=== PATIENT | male | born 1960 | race Caucasian/White ===

== ENCOUNTER 2016-12-03 07:28 | Day surgery (SDC) | payer MEDICARE ==
[2016-11-28 15:06] VITALS: BMI 50.1
[2016-12-03] MEDS ORDERED: SODIUM CHLORIDE 0.9% 1,000 ML IV SCH (07:41)
[2016-12-03 07:51] VITALS: TEMP 98
[2016-12-03] MEDS ORDERED: LIDOCAINE 1% INJ 10MG/ML (20 ML MDV) ONE (08:26)
[2016-12-03] MEDS ORDERED: PROPOFOL 10 MG/ML 20 ML VIAL IV ONE (08:26)
[2016-12-03 08:31] LABS: Anion Gap 10 mmol/L; Blood Urea Nitrogen 15 mg/dL (9-20); Calcium 8.8 mg/dL (8.4-10.2); Carbon Dioxide 24 mmol/L (22-30); Chloride 107 mmol/L (98-107); Glucose 114 mg/dL (74-99); Non-African American GFR(MDRD) >60 (>60 ml/min/1.73 sqM); Sodium 141 mmol/L (137-145)
[2016-12-03] MEDS ORDERED: BENZOCAINE SPRAY 100 APPLIC/CAN MUCOUS MEM ONE ×2 (08:32→08:35)
[2016-12-03 09:03] VITALS: RESP 16
--- NOTE | 2016-12-03 09:13 | CE ---
DATE OF SERVICE: 12/03/2016 PERFORMING PHYSICIAN: Delano Marte, Street Worker. INDICATION: Atrial fibrillation. SEDATION: Deep sedation was performed using propofol with MEAT COUNTER CLERK in the room. PROCEDURE DESCRIPTION: After transesophageal echocardiogram was performed and left atrial appendage thrombus was ruled out, we proceeded to do the cardioversion. The patient converted from atrial fibrillation into normal sinus rhythm using 200 joules at first attempt. CONCLUSION: Successful cardioversion of atrial fibrillation into normal sinus mechanism using 100 joules at first attempt.
--- NOTE | 2016-12-03 09:21 | ECHOT ---
DATE OF SERVICE: 12/03/2016 PERFORMING PHYSICIAN: Delano Marte, Indigo Mixer. PROCEDURE PERFORMED: Transesophageal echocardiogram. INDICATION: This is a pleasant 56-year-old gentleman who was diagnosed with A. fib with uncontrolled heart rate. The transesophageal echocardiogram to rule out any left atrial appendage thrombus. SEDATION: Deep sedation was performed using propofol with a FLOOR POLISHER in the room. PROCEDURE DESCRIPTION: After obtaining informed consent, the patient was brought to the transesophageal echocardiogram suite. He was turned into left lateral position. A bite guard was placed. Lidocaine spray was performed as well. Subsequently, deep sedation was performed using propofol with a FLOOR POLISHER in the room. Subsequently, I advanced the esophageal echocardiogram probe to the midesophagus, where a 2-D echocardiogram images as well as color Doppler images of various cardiac structures were obtained. Particular attention was paid to the left atrial appendage. After that, the probe was advanced to the stomach to obtain transgastric views. Then it was withdrawn back to the esophagus. I did also contrast study with bubble to evaluate the interatrial septum. The procedure was completed without any complication. FINDINGS: The left ventricle appeared to be dilated. The left ventricular systolic function is severely impaired with an ejection fraction of 20% to 25% with global hypokinesia. The right ventricle seems to be dilated as well as the left atrium appeared to be dilated as well as the right atrium. The left atrial appendage appeared to be free from any thrombus with the interatrial septum appeared to be intact without any evidence of shunt. The aortic valve is a trileaflet valve without stenosis or regurgitation. The mitral valve seems to be of normal leaflets with evidence of moderate MR likely secondary to dilated annulus. There is moderate tricuspid regurgitation seen. Normal pulmonic valve. CONCLUSION: 1. Normal left atrial appendage without any evidence of thrombus. 2. Intact intra-atrial septum without any evidence of shunt. 3. Severe biatrial enlargement. 4. Dilated left ventricle with severely impaired function and ejection fraction of 20% to 25% and global hypokinesia. 5. Dilated right ventricle with impaired function as well. 6. Trileaflet aortic valve without stenosis or insufficiency. 7. Normal mitral valve leaflets with evidence of moderate mitral regurgitation. 8. Moderate tricuspid regurgitation. 9. Normal aortic root dimension. 10. No evidence of pericardial effusion.
[2016-12-03 10:41] VITALS: BP 126/88; PULSE 66
== END 2016-12-03 10:30 | disposition home or self-care (01) ==
LOC: CATHCVL 07:28
PROVIDERS: ATTEND Internal Medicine Interventional Cardiology
DX: I08.1 Rheumatic disorders of both mitral and tricuspid valves (principal); I48.0 Paroxysmal atrial fibrillation; Z79.01 Long term (current) use of anticoagulants; I42.9 Cardiomyopathy, unspecified; I51.9 Heart disease, unspecified; I10 Essential (primary) hypertension; E66.9 Obesity, unspecified; Z68.43 Body mass index [BMI] 50.0-59.9, adult; E78.5 Hyperlipidemia, unspecified; Z79.82 Long term (current) use of aspirin; Z79.899 Other long term (current) drug therapy; Z91.09 Other allergy status, other than to drugs and biological substances
CPT/HCPCS: 93312; 93320; 93005; 93325; 92960; 80048; J2001; J2704; 99152; 99153

== ENCOUNTER 2016-12-21 09:02 | Day surgery (SDC) | payer MEDICARE ==
[2016-12-19 15:01] VITALS: BMI 50.1
[2016-12-21] MEDS ORDERED: NITROGLYCERIN SL TABS 0.4 MG TAB SUBLINGUAL PRN (09:25)
[2016-12-21] MEDS ORDERED: ASPIRIN 325 MG TAB PO STA (09:25)
[2016-12-21] MEDS ORDERED: ATORVASTATIN 80 MG TAB PO STA (09:25)
[2016-12-21] MEDS ORDERED: ALPRAZolam 0.5 MG TAB PO PRN (09:25)
[2016-12-21] MEDS ORDERED: SODIUM CHLORIDE 0.9% 1,000 ML in EMPTY BAG 1 BAG IV ONE (09:25)
[2016-12-21] MEDS ORDERED: ALPRAZolam 0.25 MG TAB PO PRN (09:25)
[2016-12-21] MEDS ORDERED: MIDAZOLAM 2 MG/2 ML VIAL ONE (09:31)
[2016-12-21] MEDS ORDERED: diphenhydrAMINE 50 MG/ML 1 ML VIAL ONE (09:31)
[2016-12-21] MEDS ORDERED: HEPARIN SODIUM 1,000 UNIT/ML VIAL ONE (09:39)
[2016-12-21 09:47] LABS: Basophils % (A) 1 %; CH 26.3; CHCM 32.5; Eosinophils # (A) 0.2 k/uL (0-0.7); Eosinophils % (A) 4 %; HCT 40.6 % (39.0-53.0); HDW 2.81; HGB 13.4 gm/dL (13.0-17.5); Luc # (Auto) 0.14; Luc % (Auto) 3; Lymphocytes # (A) 0.9 k/uL (1.0-4.8); Lymphocytes % (A) 21 %; MCH 26.8 pg (25.0-35.0); MCV 81.1 fL (80.0-100.0); Monocytes # (A) 0.3 k/uL (0-1.0); Monocytes % (A) 6 %; Neutrophils # (A) 2.8 k/uL (1.3-7.7); Neutrophils % (A) 66 %; RBC 5.01 m/uL (4.30-5.90); RDW 15.2 % (11.5-15.5); WBC 4.3 k/uL (3.8-10.6); WBC (Perox) 4.35
[2016-12-21] MEDS ORDERED: ASPIRIN 81 MG CHEW PO ONE (09:49)
[2016-12-21] MEDS ORDERED: VERAPAMIL 2.5 MG/ML 2 ML AMP ONE (09:52)
[2016-12-21] MEDS ORDERED: LIDOCAINE 2% INJ 20 MG/ML (20 ML MDV) ONE (09:52)
[2016-12-21] MEDS ORDERED: SODIUM CHLORIDE 0.9% (PF) 10 ML VIAL ONE (09:52)
[2016-12-21 09:56] VITALS: RESP 20; TEMP 98.2
[2016-12-21] MEDS ORDERED: MIDAZOLAM 2 MG/2 ML VIAL IVP ONE (10:05)
[2016-12-21] MEDS ORDERED: diphenhydrAMINE 50 MG/ML 1 ML VIAL IVP ONE (10:05)
[2016-12-21] MEDS ORDERED: LIDOCAINE 2% INJ 20 MG/ML SQ ONE (10:09)
[2016-12-21] MEDS: VERAPAMIL SYRINGE (5 MG/10 ML) INTRAARTER ONE ×2 (10:10→10:26)
[2016-12-21] MEDS ORDERED: HEPARIN SODIUM 1,000 UNIT/ML VIAL IV ONE (10:12)
[2016-12-21] MEDS ORDERED: IOHEXOL 300 MG/ML 100 ML BOTTLE IV ONE (10:27)
[2016-12-21] MEDS ORDERED: RX INFO: IV CONTRAST WAS GIVEN 1 EACH MISC MISCELLANE PRN (10:29)
[2016-12-21] MEDS ORDERED: SODIUM CHLORIDE 0.9% 1,000 ML IV ONE (10:30)
[2016-12-21] MEDS ORDERED: SODIUM CHLORIDE 0.9% 1,000 ML IV SCH (10:30)
[2016-12-21 13:57] VITALS: PULSE 62
[2016-12-21 15:29] VITALS: BP 142/70
--- NOTE | 2016-12-21 20:13 | LTR ---
December 21, 2016 RE: Yoana Geovani Lita Dear Dr. Mittal Mass: Mr. Geovani Lees underwent a heart catheterization today which showed normal coronary angiogram. I want to thank you for allowing me to participate in his care and please do not hesitate if you have any questions or concerns. Sincerely, STEPHEN MCDONALD MD
--- NOTE | 2016-12-21 20:21 | CC ---
DATE OF SERVICE: 12/21/2016 PERFORMING PHYSICIAN: Jung Christopher MD, field aide. PROCEDURE PERFORMED: Selective right and left coronary angiogram. INDICATION: This is a pleasant 56-year-old gentleman who is known to have paroxysmal atrial fibrillation, hypertension, dyslipidemia, who was diagnosed with severe cardiomyopathy and ejection fraction between 20 to 25%. He was brought today to undergo a heart catheterization and rule out any severe underlying coronary artery disease as an etiology. APPROACH: Right radial artery. COMPLICATIONS: None. LEVEL OF SEDATION: Moderate. PROCEDURE DESCRIPTION: After obtaining an informed consent, the patient was brought to the cardiac electrical laboratory technician. Right radial artery was cannulated using micropuncture technique. The micropuncture wire passed easily, then I placed 6 Irish sheath in the right radial artery. Subsequently, I did give the patient 2 mg of verapamil IA and 5000 units of heparin IV. Subsequently, I did selective right and left coronary angiogram using JR4 and JL 3.5 catheters. The procedure was completed without any complication. SELECTIVE CORONARY ANGIOGRAM: 1. The right coronary artery is a large-caliber vessel, it is a dominant vessel. The RCA is angiographically normal. In the midportion gives rise into a small acute marginal branch and distally bifurcates into PDA and PLV branches; both are angiographically normal. 2. The left main is angiographically normal and bifurcates into the left circumflex and left anterior descending artery. 3. The left circumflex is a large-caliber vessel and it is a nondominant vessel. The proximal left circumflex is angiographically normally. The mid left circumflex is normal. The left circumflex distally is normal and bifurcates into 2 separate branches, seems to be angiographically normal. 4. Left anterior descending artery: The proximal LAD is angiographically normal and gives rises into the first diagonal branch, which is a large-caliber vessel, seems to be angiographically normally. The mid LAD is normal and the LAD distally is normal. CONCLUSION: 1. Normal coronary angiogram. 2. Dominant right coronary system. 3. Tortuous right subclavian artery. POSTPROCEDURE MANAGEMENT: 1. Maximize medical treatment. 2. Follow up with the patient.
== END 2016-12-21 15:25 | disposition home or self-care (01) ==
LOC: CATHCVL 09:02
PROVIDERS: ATTEND Internal Medicine Interventional Cardiology
DX: I48.0 Paroxysmal atrial fibrillation (principal); Z79.01 Long term (current) use of anticoagulants; I77.1 Stricture of artery; I42.9 Cardiomyopathy, unspecified; I10 Essential (primary) hypertension; E78.5 Hyperlipidemia, unspecified; E78.00 Pure hypercholesterolemia, unspecified; E66.3 Overweight; Z68.43 Body mass index [BMI] 50.0-59.9, adult; Z79.899 Other long term (current) drug therapy; Z91.09 Other allergy status, other than to drugs and biological substances; G47.33 Obstructive sleep apnea (adult) (pediatric)
CPT/HCPCS: 93454; 85025; 99152; 99153; C1769; C1894; J2001; J2250; J1200; J1644; Q9967

== ENCOUNTER → 2017-06-11 | Outpatient (CLI) | payer MEDICARE ==
[2017-06-11 08:38] LABS: CH 27.9; HCT 41.9 % (39.0-53.0); HDW 2.58; HGB 12.8 gm/dL (13.0-17.5); MCH 26.7 pg (25.0-35.0); MCHC 30.5 g/dL (31.0-37.0); MCV 87.5 fL (80.0-100.0); Mean Platelet Volume 6.7; RBC 4.79 m/uL (4.30-5.90); RDW 14.6 % (11.5-15.5); WBC 6.4 k/uL (3.8-10.6)
[2017-06-11 08:46] LABS: INR 0.9 (<1.2); Partial Thromboplastin Time 24.3 sec (22.0-30.0); Prothrombin Time 9.6 sec (9.0-12.0)
[2017-06-11 08:49] LABS: ALT 38 U/L (21-72); AST 26 U/L (17-59); Alkaline Phosphatase 110 U/L (38-126); Anion Gap 12 mmol/L; Blood Urea Nitrogen 15 mg/dL (9-20); Calcium 9.1 mg/dL (8.4-10.2); Carbon Dioxide 27 mmol/L (22-30); Chloride 104 mmol/L (98-107); Glucose 103 mg/dL (74-99); Non-African American GFR(MDRD) >60 (>60 ml/min/1.73 sqM); Potassium 4.5 mmol/L (3.5-5.1); Sodium 143 mmol/L (137-145); Total Bilirubin 0.4 mg/dL (0.2-1.3); Total Protein 6.9 g/dL (6.3-8.2)
[2017-06-11 11:11] LABS: Appearance,Urine Clear (Clear); Bilirubin,Urine Negative (Negative); Glucose,Urine (UA) Negative (Negative); Ketones,Urine Negative (Negative); Leukocyte Esterase,Urine Negative (Negative); Nitrite,Urine Negative (Negative); Protein,Urine Negative (Negative); Specific Gravity,Urine 1.013 (1.001-1.035); UA Billing (MACRO vs. MICRO) CHEM; Urobilinogen,Urine <2.0 mg/dL (<2.0)
== END | disposition home or self-care (01) ==
LOC: LABWHC1 07:55
PROVIDERS: ATTEND Orthopaedic Surgery
DX: Z01.812 Encounter for preprocedural laboratory examination (principal)
CPT/HCPCS: 80053; 81003; 85027; 85610; 85730; 87070

== ENCOUNTER 2017-07-09 07:43 | Inpatient (IN) | payer MEDICARE ==
[2017-07-03 15:32] VITALS: BMI 43.5
[~2017-07-09 07:43] MED LIST: ACETAMINOPHEN TAB 500 MG TAB PO ONE; DEXAMETHASONE SOD PHOSPHATE 10 MG/ML 1 ML VIAL IV ONE; HYDROmorphone 1 MG/ML 1 ML SYRINGE IVP PRN; LIDOCAINE 1% 20 ML VIAL (10MG/ML) FOR IV START INTRADERMA PRN; MELOXICAM 7.5 MG TAB PO ONE; MIDAZOLAM 2 MG/2 ML VIAL IV PRN; ONDANSETRON 4 MG/2 ML VIAL IVP ONE; SCOPOLAMINE 1.5MG/72HR PATCH TRANSDERM ONE; TRANEXAMIC ACID 1,000 MG in SODIUM CHLORIDE 0.9% 100 ML IVPB ONE; ceFAZolin 3 GM in SODIUM CHLORIDE 0.9% 100 ML IVPB ONE
[2017-07-09] MEDS: LACTATED RINGERS 1,000 ML IV SCH (08:16)
[2017-07-09] MEDS ORDERED: SODIUM CHLORIDE 0.9% 100 ML BAG ONE (09:27)
[2017-07-09] MEDS ORDERED: TRANEXAMIC ACID 1,000 MG/10 ML VIAL ONE (09:27)
[2017-07-09] MEDS ORDERED: MIDAZOLAM 2 MG/2 ML VIAL ONE (09:27)
[2017-07-09] MEDS ORDERED: fentaNYL (PF) 50 MCG/ML 2 ML AMP ONE (09:27)
[2017-07-09] MEDS ORDERED: NA PHOS,M-B/NA PHOS,DI-BA 133 ML ENEMA RECTAL PRN (09:39)
[2017-07-09] MEDS ORDERED: HYDROmorphone 1 MG/ML 1 ML SYRINGE IVP PRN ×2 (09:39)
[2017-07-09] MEDS ORDERED: hydrOXYzine PAMOATE 25 MG CAP PO PRN (09:39)
[2017-07-09] MEDS ORDERED: MAGNESIUM HYDROXIDE 2,400 MG/10 ML CUP PO PRN (09:39)
[2017-07-09] MEDS ORDERED: ONDANSETRON 4 MG/2 ML VIAL IVP PRN (09:39)
[2017-07-09] MEDS ORDERED: HYDROcodone/APAP 5-325MG 1 EACH TAB PO PRN ×2 (09:39)
[2017-07-09] MEDS ORDERED: DIAZEPAM 5 MG TAB PO PRN (09:39)
[2017-07-09] MEDS ORDERED: NALOXONE 0.4 MG/ML 1 ML VIAL IV PRN (09:39)
[2017-07-09] MEDS ORDERED: BISACODYL 10 MG SUPP RECTAL PRN (09:39)
[2017-07-09] MEDS: ROPIVACAINE 246.25 MG, EPINEPHrine 0.5 MG, KETOROLAC 30 MG, cloNIDine HCL/PF 80 MCG, WA... MISCELLANE ONE ×15 (10:12→11:13)
[2017-07-09] MEDS ORDERED: ceFAZolin 3,000 MG in SODIUM CHLORIDE 0.9% IRRIGATIO 3,000 ML IRRIGATION ONE (10:14)
--- NOTE | 2017-07-09 11:18 | P.OP ---
Date of Procedure: 07/09/17 Preoperative Diagnosis: Severe osteoarthritis of the right knee Postoperative Diagnosis: Severe osteoarthritis of the right knee Procedure(s) Performed: Right total knee arthroplasty Implants: S[employer]hew Oxinium femoral component size 7, right S[employer]hew Citlali II right nonporous tibial baseplate size 7 [employer]hew size 11 mm Legion XLPE dished articular insert, size 7-8 [employer] Citlali II resurfacing patellar component, 35 mm All components were cemented using Eli antibiotic bone cement with Tobramycin x2 The articulation is ceramic on polyethylene. Anesthesia: spinal Surgeon: Mj Logan Embedded Firmware Developer #1: Nancy Phipps Estimated Blood Loss (ml): 300 Pathology: other (Bone and cartilage) Condition: stable Disposition: PACU Indications for Procedure: After failure of conservative treatment we discussed the surgical and nonsurgical treatment options at length. Patient wishes to proceed with a total knee arthroplasty. Complications specific to this procedure were discussed at length, including but not limited to infection, bleeding, stiffness , and nerve injury. Patient is aware of all these complications and informed consent was obtained Operative Findings: The operative findings are consistent with severe osteoarthritis of the right knee Description of Procedure: Patient was seen in the preoperative area consent was reviewed and operative site was marked with a skin marker. Patient was then brought to the operating room and given preoperative antibiotics intravenously. A spinal anesthetic was administered by the anesthesia department. A tourniquet was placed on the upper thigh and the lower extremity was prepped and draped in usual sterile fashion. A gram of transexamic acid was given. A universal timeout was then performed which confirmed the patient's name, surgical site, ALLERGIES, and consent. The lower extremity was then exsanguinated and tourniquet was inflated to 350 mmHg. A standard and anterior midline approach to the knee was performed. The skin and subcutaneous tissue was dissected down to the patellar tendon. A medial parapatellar arthrotomy was then performed. The knee was then extended, the patellar was everted, and the knee was again flexed. Anterior horns of both menisci were excised, and a release was performed to the posterior medial aspect of the knee. On gross visual inspection, there was complete loss of articular cartilage in the medial and patellofemoral joint spaces. There was also significant cartilage damage in the lateral compartment. There were multiple periarticular osteophytes which were then removed with a Ronguer. The femoral canal was then opened with the appropriate drill, and the intramedullary femoral cutting guide was then placed and set for 4 of valgus. The distal femoral cutting block was then pinned in place, and the distal femur was then cut. The cutting block was then removed and the cut was checked for flatness. Next, the sizing guide was then placed and set for 3 external rotation based off of the epicondylar axis and Whitesides line. After the femur was sized, the appropriate 4-in-1 cutting block was then pinned in place. The anterior condyles were cut without notching. The posterior and chamfer cuts were performed while protecting the collateral ligaments. The cutting block was then removed, and the femoral canal was plugged with autologous bone. Attention was then directed to the tibia. The remaining ACL was removed with a Ronguer, and the tibia was then gently subluxed forward with a large bent knee retractor. Any remaining menisci was excised. The posterior lateral corner was cauterized in order to cauterize the lateral geniculate artery. The extra medullary tibial cutting guide was then placed, set for the appropriate rotation , slope, and depth of resection. The proximal tibia cutting guide was then pinned in place. Proximal tibia was then cut and sized. Next trials were then placed with the appropriate-sized insert. The knee was able to fully extend and flex to 130 and was stable throughout all range of motion. The knee was then extended, patella everted. Patella was then measured, and then using an osteotomy guide, the patella was cut at the appropriate level. The patella was then measured and drilled and the patella trial was then placed. The knee was then taken through range of motion with the patella trial and the patella tracked normally. The knee was then extended patella trial was then removed and the patella was everted. Knee was then flexed and lug holes were drilled through the femoral trial and the femoral trial was then removed. The tibial was then exposed, and the tibial broach guide was then pinned in place after it was set for the appropriate rotation to allow for the most coverage without overhang. The tibia was then reamed and broached. The cut surfaces of bone were then irrigated with pulsatile lavage. The posterior structures were injected with the ropivacaine solution. The components were then opened, the cement was mixed, and the components were then cemented in place. The cement was allowed to harden with the knee in full extension. While the cement was hardening, the remaining soft tissues were then injected with a ropivacaine solution, which consisted of 246.25 mg of ropivacaine, 0.5 mg of epinephrine, 30 mg of Toradol, 80 g of clonidine, and 48.45 mL of sterile water, for a total of 100 mL of fluid injected. After the cemented hardened. The tourniquet was released, and hemostasis was obtained. A second gram of transexamic acid was given. The knee was again irrigated. The knee was again taken through range of motion and found to be stable throughout all range of motion of 0-130, and the patella tracked normally. The fascia was then closed with #2 strata fix suture. The subcutaneous tissue was closed with 3-0 Vicryl and 3-0 strata fix. Dermabond tape was used for the skin and placed with the knee in flexion. The patient was placed in a sterile dressing. Patient was then transferred to recovery room in stable condition. The service assistant YURI Young was required due the complexity surgery and the need for a skilled surgical assistant certified. She assisted in positioning, draping, retraction, and closure of the wound.
--- NOTE | 2017-07-09 12:02 | XR ---
EXAMINATION TYPE: XR knee limited RT DATE OF EXAM: 07/09/2017 COMPARISON: NONE TECHNIQUE: Two views submitted HISTORY: Post op FINDINGS: There is a prosthetic knee in near anatomic alignment. There is soft tissue edema and emphysema. IMPRESSION: 1. Postoperative change. Appears in near-anatomic alignment
[2017-07-09] MEDS ORDERED: LACTATED RINGERS 1,000 ML IV ONE (12:08)
[2017-07-09] MEDS: ceFAZolin 3 GM in SODIUM CHLORIDE 0.9% 100 ML IVPB SCH (16:27)
[2017-07-09] MEDS: RIVAROXABAN 10 MG TAB PO SCH (16:29)
[2017-07-09] MEDS: SODIUM CHLORIDE 0.9% 1,000 ML IV SCH (16:30)
[2017-07-09] MEDS ORDERED: WARFARIN 5 MG TAB PO ONE (18:00)
[2017-07-09] MEDS ORDERED: NITROGLYCERIN SL TABS 0.4 MG TAB SUBLINGUAL PRN (20:22)
[2017-07-09] MEDS ORDERED: CLOBETASOL PROP 0.05% CR 15GM TOPICAL PRN (20:22)
[2017-07-09] MEDS: SENNOSIDES-DOCUSATE SODIUM 1 EACH TAB PO SCH (20:27)
[2017-07-09] MEDS: METOPROLOL TARTRATE 50 MG TAB PO SCH (21:23)
[2017-07-09] MEDS: FUROSEMIDE 80 MG TAB PO SCH (21:28)
[2017-07-09] MEDS: FLECAINIDE 50 MG TAB PO SCH (21:28)
[2017-07-09] MEDS: FAMOTIDINE 20 MG TAB PO SCH (21:58)
[2017-07-10] MEDS: ceFAZolin 3 GM in SODIUM CHLORIDE 0.9% 100 ML IVPB SCH (00:14)
[2017-07-10] MEDS: SODIUM CHLORIDE 0.9% 1,000 ML IV SCH (00:14)
[2017-07-10] MEDS: HYDROmorphone 1 MG/ML 1 ML SYRINGE IVP PRN ×2 (01:22→17:01)
[2017-07-10] MEDS: LACTATED RINGERS 1,000 ML IV SCH (05:42)
--- NOTE | 2017-07-10 06:25 | CONS ---
CONSULTATION DATE OF CONSULTATION: 07/09/2017 REASON FOR CONSULTATION: Medical management requested by Dr. Logan. CONSULTATION: This is a pleasant 57-year-old patient whose chronic stable medical conditions include atrial fibrillation, on Xarelto, CHF, COPD, hyperlipidemia, hypertension, heart attack in the past, osteoarthritis multiple joints, sleep apnea uses CPAP machine, chronic lymphedema, depression controlled. The patient has undergone a right total knee arthroplasty. Pain is controlled. No nausea, vomiting. No chest pain. Lying in bed. REVIEW OF SYSTEMS: CONSTITUTIONAL: Tired HEENT: None. RESPIRATORY: None. CARDIOVASCULAR: None. GASTROINTESTINAL: None. GENITOURINARY; None. MUSCULOSKELETAL: Pain in different joints. DERMATOLOGICAL: None. HEMATOLOGIC: None. LYMPHATICS: None. PSYCHIATRY: Depression controlled. NEUROLOGICAL: None. PAST HISTORY: Atrial fibrillation, congestive heart failure, COPD, hyperlipidemia, hypertension, [place], osteoarthritis, obstructive sleep apnea, lymphedema, depression. PAST SURGERY HISTORY: Bariatric surgery, cholecystectomy, cardiac cath, joint replacement, lap band, left knee replacement, left elbow surgery, left ankle ORIF. SOCIAL HISTORY: No smoking. No alcohol. . 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 FAMILY HISTORY: Cancer, type unknown. HOME MEDICATIONS: 1. Aldactone 25 mg p.o. daily. 2. Silver sulfadiazine cream topical b.i.d. p.r.n. 3. Xarelto 20 mg with supper. 4. Zantac 150 mg p.o. b.i.d. 5. Pravachol 20 mg a day. 6. Klor-Con 20 mEq a day. 7. Nitrostat 0.4 sublingual q.5 p.r.n. 8. Multivitamin 1 tab p.o. daily. 9. Lopressor 50 mg p.o. b.i.d. 10.Meclizine 25 mg p.o. q.i.d. p.r.n. 11.Claritin 10 mg p.o. daily. 12.Lisinopril 40 mg p.o. daily. 13.Motrin 600 mg p.o. q.8 p.r.n. 14.Lasix 80 mg p.o. b.i.d. 15.Tambocor 100 mg p.o. q.12. 16.Iron 325 mg p.o. q.48 hours. 17.Temovate 0.05% 1 topical b.i.d. p.r.n. 18.Celexa 40 mg p.o. daily. ALLERGIES: Allergies to COCONUT, LATEX, STERI-STIRPS. PHYSICAL EXAMINATION: On examination, temperature 97.8 pulse 65, respirations 16, blood pressure 139/61, pulse ox 94%. GENERAL APPEARANCE: Well built, BMI 43.5, lying in bed, comfortable. EYES: Pupils equal. Conjunctivae normal. HENT: Oral cavity normal. NECK: Short, thick. JVD unable to assess. Mass not palpable. RESPIRATORY: Effort normal. LUNGS: Distant breath sounds. CARDIOVASCULAR.: Heart sounds muffled. No edema. ABDOMEN: Soft, nontender. Liver and spleen not palpable. LYMPHATIC: No lymph node palpable in the neck and axillae. PSYCHIATRY: Alert and oriented x3. Mood and affect normal. NEUROLOGICAL: Pupils equal. Cranial nerves grossly intact. Power and sensation grossly intact. EXTREMITIES: Right knee in a dressing. INVESTIGATIONS: No blood work from today. Blood work from 06/11/17 showed white 6.4, hemoglobin 12.8, platelets 203, potassium 4.5. ASSESSMENT: 1. Right total knee arthroplasty. 2. History of atrial fibrillation chronic, on Xarelto. 3. Chronic congestive heart failure, ejection fraction not known. 4. Chronic obstructive pulmonary disease. 5. Essential hypertension. 6. Hyperlipidemia. 7. Primary osteoarthritis multiple joints, bilateral. 8. Obstructive sleep apnea, uses CPAP machine. 9. Chronic bilateral lower extremity lymphedema. 10.Depression, not otherwise specified. 11.Morbid obesity, body mass index 43.5. PLAN: Home medications will be resumed. Will start the patient's Xarelto starting tomorrow if okay with Dr. Logan. Patient should see a dietitian for weight loss measures. Other home medications to be continued. Care was discussed with the patient. Thank you Dr. Logan. MMODL / IJN: [id number] /
[2017-07-10 06:52] LABS: Basophils % (A) 0 %; CH 26.3; CHCM 31.4; Eosinophils # (A) 0.1 k/uL (0-0.7); Eosinophils % (A) 1 %; HCT 31.6 % (39.0-53.0); HDW 2.59; HGB 10.2 gm/dL (13.0-17.5); Hypochromasia Slight; Luc # (Auto) 0.18; Luc % (Auto) 2; Lymphocytes # (A) 1.1 k/uL (1.0-4.8); Lymphocytes % (A) 14 %; MCH 27.2 pg (25.0-35.0); MCHC 32.2 g/dL (31.0-37.0); MCV 84.3 fL (80.0-100.0); Mean Platelet Volume 6.6; Monocytes # (A) 0.5 k/uL (0-1.0); Monocytes % (A) 6 %; Neutrophils # (A) 6.1 k/uL (1.3-7.7); Neutrophils % (A) 77 %; RBC 3.74 m/uL (4.30-5.90); RDW 13.9 % (11.5-15.5); WBC (Perox) 8.45
[2017-07-10 06:55] LABS: INR 1.2 (<1.2); Prothrombin Time 11.6 sec (9.0-12.0)
[2017-07-10] MEDS: CITALOPRAM HYDROBROMIDE 20 MG TAB PO SCH (08:23)
[2017-07-10] MEDS: FAMOTIDINE 20 MG TAB PO SCH ×2 (08:23→21:51)
[2017-07-10] MEDS: FLECAINIDE 50 MG TAB PO SCH ×2 (08:23→21:52)
[2017-07-10] MEDS: LORATADINE 10 MG TAB PO SCH (08:23)
[2017-07-10] MEDS: PRAVASTATIN SODIUM 20 MG TAB PO SCH (08:23)
[2017-07-10] MEDS: METOPROLOL TARTRATE 50 MG TAB PO SCH ×2 (08:23→21:51)
[2017-07-10] MEDS: LISINOPRIL 20 MG TAB PO SCH (08:24)
[2017-07-10] MEDS: POTASSIUM CHLORIDE ER 20 MEQ TAB.ER PO SCH (08:24)
[2017-07-10] MEDS: SPIRONOLACTONE 25 MG TAB PO SCH (08:24)
[2017-07-10] MEDS: FUROSEMIDE 80 MG TAB PO SCH ×2 (08:25→15:09)
--- NOTE | 2017-07-10 09:16 | P.PN ---
Subjective Principal diagnosis: Primary osteoarthritis right knee, status post right total knee arthroplasty. This is a 57-year-old male who is status post right total knee arthroplasty. This is postoperative day #1. Patient is seen and evaluated at bedside with Dr. Mj Logan. Patient states he has not been up with physical therapy yet. Patient denies any new complaints today. Patient denies fever/chills, numbness, weakness or tingling. Objective - Vital Signs Vital signs: Vital Signs Temp 97.9 F 07/10/17 07:00 Pulse 75 07/10/17 07:00 Resp 16 07/10/17 07:00 BP 141/73 07/10/17 07:00 Pulse Ox 95 07/10/17 07:00 Intake & Output 07/09/17 07/10/17 07/10/17 18:59 06:59 18:59 Intake Total 1401 520 280 Output Total 1700 200 Balance -299 320 280 Intake: IV 1151 Intake, IV Titration 520 Amount Sodium Chloride 0.9% 1, 520 000 ml @ 65 mls/hr IV . [id number] [facility] Rx#:[id number] Oral 250 280 Output: Urine 1400 200 Estimated Blood Loss 300 Other: Voiding Method Urinal # Voids 3 3 1 - Exam Vital signs are stable. Patient is in no acute distress and is alert and oriented 3. Calf is soft and nontender. Dressing is clean, dry, and intact. Neurovascular status intact. Patient has full foot and ankle motion. - Labs CBC & Chem 7: 07/10/17 06:26 Labs: Abnormal Lab Results - Last 24 Hours (Table) 07/10/17 07/10/17 Range/Units 06:24 06:26 RBC 3.74 L (4.30-5.90) m/uL Hgb 10.2 L (13.0-17.5) gm/dL Hct 31.6 L (39.0-53.0) % INR 1.2 H (<1.2) Assessment and Plan (1) Primary osteoarthritis of right knee Status: Acute (2) S/P total knee arthroplasty Status: Acute Plan: #1 Continue with routine postoperative care. #2 Anticoagulation with Xarelto. #3 Physical therapy and CPM today. #4 Appreciate input from medicine. #5 Anticipate discharge to rehab likely Saturday.
--- NOTE | 2017-07-10 10:12 | CDI ---
In responding to this query, please exercise your independent professional judgment. The [facility] Coding Staff and Clinical Documentation Specialists appreciate your assistance in clarifying documentation, maintaining compliance with coding guidelines, accurately documenting patients condition and capturing severity of illness. The fact that a question is asked does not imply that any particular answer is desired or expected. Communication forms are a method of clarifying documentation and are not made part of the Legal Health Record. Thank you in advance for your clarification. Last Revision, December 2016 Ramon Matias [address] [place] [address] Documentation Clarification Form Date: 07/10/2017 10:03:00 AM From: Cecilia Oden RN, CDS Admit Date: 07/09/2017 7:43:00 AM Patient Name: Geovani Lees Visit Number: [id number] Dr. Guru Valle, 57 year old patient admitted for elective right Total Knee Arthroplasty. Patient has past medical history of "chronic Congestive Heart Failure, EF unknown" documented per Medical consult. History/Risk Factors: CHF, Chronic A-fib, Sleep apnea/CPAP, Chronic Lymphedema, Clinical Indicators: VS: 97.9 73 16 141/88 94, ECHO from 11/2016: "dilated LV with severely impaired function EF 20-25%, dilated right ventricle w/ impaired function" Treatment: Home medications: Lopressor 50mg BID, Lisinopril 40mg daily, Lasix 80mg BID In your professional opinion, can you please clarify the acuity and type of CHF if known? Compensated Chronic Systolic Heart Failure Compensated Chronic Diastolic Heart Failure Compensated Chronic Systolic and Diastolic Heart Failure Unable to determine Other, please specify Please document in your progress notes and discharge summary in order to capture severity of illness and risk of mortality. Include clinical findings that support your diagnosis. FYI: Press F11 to launch patient chart. Thank you. YOCASTA
[2017-07-10] MEDS ORDERED: HYDROcodone/APAP 7.5-325MG 1 EACH TAB PO PRN (13:46)
[2017-07-10] MEDS: HYDROcodone/APAP 7.5-325MG 1 EACH TAB PO PRN ×2 (14:11→21:52)
--- NOTE | 2017-07-10 14:23 | PN ---
PROGRESS NOTE DATE OF SERVICE: 07/10/2017 INTERVAL HISTORY: This is a patient, status post right knee arthroplasty, doing well. Sitting up in a chair. No chest pain or short of breath. No nausea, vomiting, did tolerate his diet. Did work with Physical Therapy. REVIEW OF SYSTEMS: Done for constitutional, cardiovascular, GI, pulmonary: relevant findings as above. CURRENT MEDICATIONS: Reviewed. PHYSICAL EXAMINATION: Temperature 97.9, pulse 75, respirations 16, blood pressure 140/73, pulse ox 95% on room air. GENERAL APPEARANCE: Sitting up in a chair, comfortable. EYES: Pupils equal, conjunctivae normal. NECK: JVD not raised. Mass not palpable. RESPIRATORY: Effort normal. Lungs distant breath sounds. CARDIOVASCULAR: Heart sounds muffled, minimal edema. ABDOMEN: Soft, nontender. Liver and spleen not palpable. PSYCHIATRY: Alert and oriented x3. Mood and affect normal. EXTREMITIES: Right knee in a dressing. INVESTIGATIONS: White count 8, hemoglobin 10.2. ASSESSMENT: 1. Right total knee arthroplasty. 2. Acute blood-loss anemia as expected from surgery. 3. History of atrial fibrillation, chronic, on Xarelto. 4. Chronic congestive heart failure, systolic or diastolic, not known. Ejection fraction not known, stable. 5. Chronic obstructive pulmonary disease. 6. Essential hypertension. 7. Hyperlipidemia. 8. Primary osteoarthritis of multiple joints, bilateral. 9. Obstructive sleep apnea. Uses a CPAP machine. 10.Chronic bilateral lower extremity lymphedema. 11.Depression, not otherwise specified. 12.Morbid obesity. Body mass index at 43.5. PLAN: Care was discussed with the patient. No new issues. The patient is back on Xarelto. MMODL / IJN: [id number] /
[2017-07-10] MEDS: RIVAROXABAN 10 MG TAB PO SCH (17:02)
[2017-07-10] MEDS ORDERED: NON-FORMULARY DRUG (Rivaroxaban [Xarelto] 20 MG) PO SCH (18:30)
[2017-07-10] MEDS: SENNOSIDES-DOCUSATE SODIUM 1 EACH TAB PO SCH (21:51)
[2017-07-10] MEDS: DIAZEPAM 5 MG TAB PO PRN (21:52)
[2017-07-11] MEDS: HYDROcodone/APAP 7.5-325MG 1 EACH TAB PO PRN ×3 (06:45→17:56)
[2017-07-11 08:12] LABS: INR 1.1 (<1.2); Prothrombin Time 11.4 sec (9.0-12.0)
[2017-07-11] MEDS: LISINOPRIL 20 MG TAB PO SCH (09:11)
[2017-07-11] MEDS: FAMOTIDINE 20 MG TAB PO SCH ×2 (09:11→20:41)
[2017-07-11] MEDS: PRAVASTATIN SODIUM 20 MG TAB PO SCH (09:11)
[2017-07-11] MEDS: METOPROLOL TARTRATE 50 MG TAB PO SCH ×3 (09:11→20:41)
[2017-07-11] MEDS: FUROSEMIDE 80 MG TAB PO SCH ×2 (09:11→15:42)
[2017-07-11] MEDS: POTASSIUM CHLORIDE ER 20 MEQ TAB.ER PO SCH (09:11)
[2017-07-11] MEDS: CITALOPRAM HYDROBROMIDE 20 MG TAB PO SCH (09:11)
[2017-07-11] MEDS: LORATADINE 10 MG TAB PO SCH (09:11)
[2017-07-11] MEDS: FLECAINIDE 50 MG TAB PO SCH ×2 (09:11→20:41)
[2017-07-11] MEDS: SPIRONOLACTONE 25 MG TAB PO SCH (09:11)
--- NOTE | 2017-07-11 09:38 | P.PN ---
Subjective Principal diagnosis: Primary osteoarthritis right knee, status post right total knee arthroplasty. This is a 57-year-old male who is status post right total knee arthroplasty. This is postoperative day #2. Patient states he has been up and walking with physical therapy. Patient reports that his incision has started draining. Patient denies fever/chills, numbness, weakness or tingling. Objective - Vital Signs Vital signs: Vital Signs Temp 98.1 F 07/11/17 07:00 Pulse 66 07/11/17 07:00 Resp 16 07/11/17 07:00 BP 118/59 07/11/17 07:00 Pulse Ox 96 07/11/17 07:00 Intake & Output 07/10/17 07/11/17 07/11/17 18:59 06:59 18:59 Intake Total 1260 Output Total 625 Balance 1260 -625 Intake: Oral 1260 Output: Urine 625 Other: Voiding Method Toilet Urinal Urinal # Voids 1 # Bowel Movements 1 1 - Exam Vital signs are stable. Patient is in no acute distress and is alert and oriented 3. Calf is soft and nontender. Dressing is clean and intact with mild drainage. Neurovascular status intact. Patient has full foot and ankle motion. - Labs CBC & Chem 7: 07/10/17 06:26 Assessment and Plan (1) Primary osteoarthritis of right knee Status: Acute (2) S/P total knee arthroplasty Status: Acute Plan: #1 Continue with routine postoperative care. #2 Anticoagulation with Xarelto. #3 Physical therapy today. Hold CPM #4 Appreciate input from medicine. #5 Anticipate discharge to rehab or home tomorrow.
[2017-07-11] MEDS ORDERED: traMADol 50 MG TAB PO PRN ×2 (09:43)
[2017-07-11 10:35] LABS: Anion Gap 6 mmol/L; Blood Urea Nitrogen 14 mg/dL (9-20); Calcium 8.2 mg/dL (8.4-10.2); Carbon Dioxide 28 mmol/L (22-30); Chloride 104 mmol/L (98-107); Glucose 96 mg/dL (74-99); Non-African American GFR(MDRD) >60 (>60 ml/min/1.73 sqM); Potassium 4.3 mmol/L (3.5-5.1); Sodium 138 mmol/L (137-145)
--- NOTE | 2017-07-11 15:45 | P.PN ---
Progress Note - Text DATE OF SERVICE: 07/11/2017 PRESENTING COMPLAINT: Right knee surgery HISTORY OF PRESENT ILLNESS: 57-year-old male status post right knee arthroplasty. INTERVAL HISTORY: 07/11/2017: Patient resting comfortably in the recliner, right knee began to have a fair amount of drainage today redressed by orthopedics. Currently being ice down. Patient feels as though he needs service of a rehab center postoperatively. CPM machine on hold, working with physical therapy, tolerating his diet, and when with a walker and assistance. Last BM 07/10/2017 REVIEW OF SYSTEMS: Done for constitutional ,cardiovascular, GI, pulmonary, musculoskeletal with relevant findings as above. CURRENT MEDICATIONS [place], Celexa, Temovate, Valium, flecainide, Lasix, Zestril, Claritin, Xarelto. PHYSICAL EXAM VITAL SIGNS: Temperature 98.1, pulse 66, respirations 16, blood pressure 118/59, oxygen saturation 96% on room air. GENERAL APPEARANCE: Lying and recliner, appears comfortable. EYES: Pupils equal. Conjunctiva normal. NECK: JVD not raised. Mass not palpable. RESPIRATORY: Respiratory effort normal. Lungs diminished to auscultation. CARDIOVASCULAR: First and second muffled. Mild edema. ABDOMEN: Soft. Liver and spleen not palpable. No tenderness. No mass palpable. PSYCHIATRY: Alert and oriented x3. Mood and affect normal. EXTREMITY: Right knee with surgical dressing in place. INVESTIGATIONS: ASSESSMENT: -Right total knee arthroplasty. -Acute blood loss anemia as expected from surgery. -History of atrial fibrillation, chronically on Xarelto. -Chronic just heart failure, systolic or diastolic, not known, ejection fraction not known, stable. -Chronic obstructive pulmonate disease. -Essential hypertension. -Hyperlipidemia. -Primary breast of multiple joints bilateral. -Obstructive sleep apnea uses CPAP machine -Chronic bilateral lower extremity lymphedema. -Depression not otherwise specified. -Morbid obesity body mass index 43.5. PLAN: CPM machine DC'd per orthopedics, patient has had some drainage from the right knee. Discharge planning for rehab center or home based on insurance authorization in the next 24-48 hours. We'll continue current medication and treatment plan. Discussed plan of care with the patient the bedside. MONUMENT ERECTOR statement: Patient was seen and examined by nurse practitioner Daxa Fernandez and all elements of the case discussed with attending Dr. Valle
[2017-07-11] MEDS: RIVAROXABAN 10 MG TAB PO SCH (17:56)
--- NOTE | 2017-07-11 18:39 | PN ---
PROGRESS NOTE DATE OF SERVICE: 07/11/2017 ATTENDING NOTE: This patient was seen and examined by me. I discussed with nurse practitioner, Ms. Fernandez. The patient is overall doing much better. Sitting up, comfortable. Pain is controlled. No nausea or vomiting. Lungs have distant breath sounds. CARDIOVASCULAR: Heart sounds muffled. Potassium 4.3. ASSESSMENT: 1. Right total knee arthroplasty. 2. Chronic congestive heart failure. Ejection fraction not known. 3. Other medical condition stable. Doing well. Discharge planning per Orthopedics. Will follow. MMODL / IJN: [id number] /
[2017-07-11] MEDS: SENNOSIDES-DOCUSATE SODIUM 1 EACH TAB PO SCH (20:40)
[2017-07-11] MEDS: DIAZEPAM 5 MG TAB PO PRN (23:04)
[2017-07-12] MEDS: HYDROcodone/APAP 7.5-325MG 1 EACH TAB PO PRN (06:46)
[2017-07-12 08:49] VITALS: BP 134/61; PULSE 80; RESP 14; TEMP 98
[2017-07-12] MEDS: FUROSEMIDE 80 MG TAB PO SCH (08:52)
[2017-07-12] MEDS: FLECAINIDE 50 MG TAB PO SCH (08:54)
[2017-07-12] MEDS: LORATADINE 10 MG TAB PO SCH (08:54)
[2017-07-12] MEDS: METOPROLOL TARTRATE 50 MG TAB PO SCH (08:54)
[2017-07-12] MEDS: POTASSIUM CHLORIDE ER 20 MEQ TAB.ER PO SCH (08:54)
[2017-07-12] MEDS: PRAVASTATIN SODIUM 20 MG TAB PO SCH (08:54)
[2017-07-12] MEDS: LISINOPRIL 20 MG TAB PO SCH (08:54)
[2017-07-12] MEDS: CITALOPRAM HYDROBROMIDE 20 MG TAB PO SCH (08:55)
[2017-07-12] MEDS: SPIRONOLACTONE 25 MG TAB PO SCH (08:55)
--- NOTE | 2017-07-12 08:59 | P.DS ---
Providers Date of admission: 07/09/17 07:43 Expected date of discharge: 07/12/17 Attending physician: Mj Logan Consults: 07/09/17 09:39 Consult Physician Routine Consulting Provider: Guru Valle Consult Reason/Comments: medical management Do you want consulting provider notified?: Yes Primary care physician: Daxa Edgar - Discharge Diagnosis(es) (1) Primary osteoarthritis of right knee Current Visit: Yes Status: Acute (2) S/P total knee arthroplasty Current Visit: Yes Status: Acute Hospital Course: This is a 57-year-old -male with known history of degenerative arthritis of the right knee. The patient presents for evaluation. After discussion and consideration patient elects to proceed with total knee arthroplasty. The patient is seen preoperatively by Dr. Logan and cleared for surgery. Patient is admitted to [facility] on 07/09/2017 for total knee arthroplasty. The procedures performed without complication or sequelae. The patient is doing well postoperatively. Labs and vital signs are stable on day of discharge. On day of discharge patient's knee incision is healing well. There is minimal erythema. There is mild drainage noted at this time. There is minimal soft tissue swelling to the knee. Patient has full foot and ankle motion without difficulty or pain. Neurovascular status to the right lower extremity is intact. Patient is discharged rehab in good condition. Please see med rec for accurate list of home medications. Plan - Discharge Summary New Discharge Prescriptions: New HYDROcodone/APAP 7.5-325MG [[place] 7.5-325] 1 - 2 tab PO Q4-6H PRN #90 tab PRN Reason: Pain Rivaroxaban [Xarelto] 20 mg PO DAILY #30 tab Sennosides-Docusate Sodium [Senokot-S] 1 tab PO BID #60 tablet Cephalexin [Keflex] 500 mg PO Q6HR 10 Days No Action SILVER sulfADIAZINE CREAM [Silvadene Cream] 1 applic TOPICAL BID PRN PRN Reason: sores on legs Lisinopril 40 mg PO DAILY Spironolactone [Aldactone] 25 mg PO DAILY Pravastatin Sodium [Pravachol] 20 mg PO DAILY Ranitidine HCl 150 mg PO BID Metoprolol Tartrate [Lopressor] 50 mg PO BID Clobetasol Propionate [Temovate 0.05% Cream] 1 applic TOPICAL BID PRN PRN Reason: Rash Rivaroxaban [Xarelto] 20 mg PO PC-SUPPER Nitroglycerin Sl Tabs [Nitrostat] 0.4 mg SUBLINGUAL Q5M PRN PRN Reason: Chest Pain Flecainide [Tambocor] 100 mg PO Q12HR Multivitamins, Thera [Multivitamin (formulary)] 1 tab PO DAILY Ibuprofen [Motrin] 600 mg PO Q8HR PRN #30 tab PRN Reason: Pain Ferrous Sulfate [Iron (65 MG Elemental)] 325 mg PO Q48H Loratadine 10 mg PO DAILY Potassium Chloride [Klor-Con 20] 20 meq PO DAILY Furosemide [Lasix] 80 mg PO BID Citalopram Hydrobromide [CeleXA] 40 mg PO DAILY Meclizine HCl 25 mg PO QID PRN PRN Reason: dizzy Discharge Medication List Clobetasol Propionate [Temovate 0.05% Cream] 1 applic TOPICAL BID PRN 01/22/15 [ History] Flecainide [Tambocor] 100 mg PO Q12HR 01/22/15 [History] Lisinopril 40 mg PO DAILY 01/22/15 [History] Metoprolol Tartrate [Lopressor] 50 mg PO BID 01/22/15 [History] Multivitamins, Thera [Multivitamin (formulary)] 1 tab PO DAILY 01/22/15 [History ] Nitroglycerin Sl Tabs [Nitrostat] 0.4 mg SUBLINGUAL Q5M PRN 01/22/15 [History] Pravastatin Sodium [Pravachol] 20 mg PO DAILY 01/22/15 [History] Ranitidine HCl 150 mg PO BID 01/22/15 [History] Rivaroxaban [Xarelto] 20 mg PO PC-SUPPER 01/22/15 [History] SILVER sulfADIAZINE CREAM [Silvadene Cream] 1 applic TOPICAL BID PRN 01/22/15 [ History] Spironolactone [Aldactone] 25 mg PO DAILY 01/22/15 [History] Ibuprofen [Motrin] 600 mg PO Q8HR PRN #30 tab 04/02/15 [Rx] Ferrous Sulfate [Iron (65 MG Elemental)] 325 mg PO Q48H 11/28/16 [History] Loratadine 10 mg PO DAILY 12/19/16 [History] Citalopram Hydrobromide [CeleXA] 40 mg PO DAILY 07/03/17 [History] Furosemide [Lasix] 80 mg PO BID 07/03/17 [History] Meclizine HCl 25 mg PO QID PRN 07/03/17 [History] Potassium Chloride [Klor-Con 20] 20 meq PO DAILY 07/03/17 [History] HYDROcodone/APAP 7.5-325MG [[place]rell 7.5-325] 1 - 2 tab PO Q4-6H PRN #90 tab [Rx] Rivaroxaban [Xarelto] 20 mg PO DAILY #30 tab 07/11/17 [Rx] Sennosides-Docusate Sodium [Senokot-S] 1 tab PO BID #60 tablet 07/11/17 [Rx] Cephalexin [Keflex] 500 mg PO Q6HR 10 Days 07/12/17 [Rx] Follow up Appointment(s)/Referral(s): Mj Logan DO [Doctor of Osteopathic Medicine] - 2 Weeks [facility] Visiting Nurse, [NON-STAFF] - Ambulatory/Diagnostic Orders: Continuous Passive Motion (CPM) Machine [DME.AMB1] Time Frame: 2 Weeks, Location : Determined By Patient Activity/Diet/Wound Care/Special Instructions: Weightbearing as tolerated with a walker Hold CPM until knee is no longer draining Daily dressing changes, keep incision clean and dry May shower when there is no drainage from incision Take antibiotics as prescribed [facility] with questions or concerns [phone] Discharge Disposition: TRANSFER TO SNF/ECF
[2017-07-12 09:19] LABS: Basophils % (A) 0 %; CH 27.4; CHCM 31.6; Eosinophils # (A) 0.3 k/uL (0-0.7); Eosinophils % (A) 4 %; HCT 29.9 % (39.0-53.0); HDW 2.54; HGB 9.4 gm/dL (13.0-17.5); Hypochromasia Slight; Luc # (Auto) 0.12; Luc % (Auto) 2; Lymphocytes % (A) 13 %; MCH 27.5 pg (25.0-35.0); MCHC 31.4 g/dL (31.0-37.0); MCV 87.4 fL (80.0-100.0); Mean Platelet Volume 6.9; Monocytes # (A) 0.3 k/uL (0-1.0); Monocytes % (A) 5 %; Neutrophils # (A) 5.5 k/uL (1.3-7.7); Neutrophils % (A) 76 %; RBC 3.42 m/uL (4.30-5.90); RDW 14.7 % (11.5-15.5); WBC 7.2 k/uL (3.8-10.6); WBC (Perox) 8.22
[2017-07-12 09:44] LABS: INR 1.1 (<1.2)
[2017-07-12] MEDS: FAMOTIDINE 20 MG TAB PO SCH (09:51)
--- NOTE | 2017-07-12 23:28 | PN ---
PROGRESS NOTE DATE OF SERVICE: 07/12/2017 PRESENTING COMPLAINT: Knee surgery. INTERVAL HISTORY: The patient is status post surgery, doing well. Sitting up, comfortable. Sitting up in a chair, comfortable. Did tolerate a diet. No nausea, vomiting. REVIEW OF SYSTEMS: Done for constitutional, cardiovascular, GI, pulmonary, musculoskeletal; relevant findings as above. CURRENT MEDICATIONS: Reviewed. PHYSICAL EXAMINATION: Temperature 98, pulse 80, respiratory rate 20, blood pressure 117/61, pulse ox 93% on room air. GENERAL APPEARANCE: Sitting up, comfortable. EYES: Pupils equal. Conjunctivae normal. NECK: JVD unable to assess. Mass not palpable. RESPIRATORY: Effort normal. LUNGS: Distant breath sounds. CARDIOVASCULAR: Heart sounds muffled. ABDOMEN: Soft, nontender. PSYCHIATRY: Alert and oriented x3. Mood and affect were normal. INVESTIGATIONS: White count 7.2, hemoglobin 9.4. ASSESSMENT: 1. Right total knee arthroplasty. 2. History of atrial fibrillation chronically on Xarelto. 3. Chronic congestive heart failure. Ejection fraction not known. 4. Chronic obstructive pulmonary disease. 5. Essential hypertension. 6. Hyperlipidemia. 7. Primary osteoarthritis multiple joints, bilateral. 8. Obstructive sleep apnea. Uses a continuous positive airway pressure machine. 9. Chronic bilateral lower extremity lymphedema. 10.Depression, not otherwise specified. 11.Morbid obesity. Body mass index 48.55. PLAN: Care was discussed with the patient. Medications to continue. Patient to go to the ECF. Thank you, Dr. Logan. JHONL / SHAMARN: [id number] /
== END 2017-07-12 11:00 | DRG 470 ==
LOC: 2ORMAIN 07:43 → 3SUR 11:40
PROVIDERS: ADMIT Orthopaedic Surgery; ATTEND Orthopaedic Surgery
PROC: 0SRC0J9 Replacement of Right Knee Joint with Synthetic Substitute, Cemented, Open Approach (ICD-10-PCS; principal; 2017-07-09 09:45)
DX: M17.11 Unilateral primary osteoarthritis, right knee (principal); I11.0 Hypertensive heart disease with heart failure; I50.9 Heart failure, unspecified; D62 Acute posthemorrhagic anemia; E66.01 Morbid (severe) obesity due to excess calories; I48.2 Chronic atrial fibrillation; E78.5 Hyperlipidemia, unspecified; F32.9 Major depressive disorder, single episode, unspecified; G47.33 Obstructive sleep apnea (adult) (pediatric); I89.0 Lymphedema, not elsewhere classified; J44.9 Chronic obstructive pulmonary disease, unspecified; Z79.01 Long term (current) use of anticoagulants; Z79.899 Other long term (current) drug therapy; I25.2 Old myocardial infarction; Z98.84 Bariatric surgery status; Z91.040 Latex allergy status
CPT/HCPCS: 80048; 85025; 85610; 88300

== ENCOUNTER → 2019-05-04 | Outpatient (CLI) | payer BC, MEDICARE ==
[2019-05-04 15:26] VITALS: BP 121/62; PULSE 65; TEMP 98.5; BMI 55.0
[2019-05-04 16:58] LABS: HCT 35.2 % (39.0-53.0); MCH 26.7 pg (25.0-35.0); MCHC 31.3 g/dL (31.0-37.0); MCV 85.2 fL (80.0-100.0); Mean Platelet Volume 6.5; Platelet Count 189 k/uL (150-450); RBC 4.13 m/uL (4.30-5.90); RDW 14.8 % (11.5-15.5)
[2019-05-05 01:26] LABS: African American GFR (CKD) 95.7 (60.0-200.0); Albumin 4.2 g/dL (3.80-4.90); Anion Gap 9.8 mmol/L (4.00-12.00); Calcium 8.9 mg/dL (8.7-10.3); Carbon Dioxide 27.2 mmol/L (21.6-31.8); Globulin 2.1 g/dL (1.6-3.3); Potassium 4.7 mmol/L (3.5-5.5); Total Bilirubin 0.3 mg/dL (0.3-1.2); Total Protein 6.3 g/dL (6.2-8.2)
[2019-05-05 01:29] LABS: Vitamin D 25 Hydroxy 24.2 ng/mL (30.0-100.0)
--- NOTE | 2019-05-08 13:24 | P.HPBAR ---
Bariatric H&P - History & Physicial H&P Date: 05/04/19 History & Physicial: Visit/CC: sleeve annual f/u Patient initial contact: Initial weight: 204.117 kg Initial weight in pounds: 450.00 Height: 6 ft Initial BMI: 61.0 Last weight: Current weight: 184.159 kg Current weight in pounds: 406.00 Current BMI: 55.0 [place] body weight (based on NIH guidelines): 80.739 kg Excess body weight loss: 16.1% The patient is a 59 year-old M who presents for Bariatric Assessment. Patient presents today for sleeve gastrectomy fall. He has not been seen in several years. He states his weight has been stable for the last year. His BMI is 55. Patient has some minimal heartburn. 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 TOTAL BILATERAL KNEES, Cardioversion Past Anesthesia/Blood Transfusion Reactions: No Reported Reaction Additional Past Anesthesia/Blood Transfusion Reaction / Comm: no hx blood transfusion Past Psychological History: Depression Smoking Status: Never smoker Past Alcohol Use History: None Reported Past Drug Use History: None Reported - Past Family History Sister(s) Family Medical History: Cancer Additional Family Medical History / Comment(s): sister #1: breast cancer. sister #2: bronchial tube cancer ( in her 50's from this cancer) Father Family Medical History: Cancer, Congestive Heart Failure (CHF), Coronary Artery Disease (CAD), Hypertension Additional Family Medical History / Comment(s): Leukemia, at age 62 Mother Additional Family Medical History / Comment(s): at age 60 from anuerysm on the brain stem Surgical - Exam Vital Signs Temp Pulse BP 98.5 F 65 121/62 05/04/19 14:59 05/04/19 14:59 05/04/19 14:59 - General well developed, well nourished, no distress - Abdomen Abdomen: soft, non tender Results - Labs 05/04/19 15:53 05/04/19 15:53 Bariatric Assessment & Plan Plan: Status post sleeve gastrectomy. Patient has had for follow-up. He'll follow-up in 8 weeks. He was encouraged to meet with the dietitian. His GERD is minimal and will be observed. Bariatric Checklist Checklist: Plan: Checklist: EGD: 1. Hiatal hernia: 2. H. Pylori: HgbA1c: Vitamin D: Smoking: Never smoker Primary care physician referral: Dr Gandhi ([place]) while Dr. Gandhi off on medical seeing Dr. Harrington Psychiatry clearance: Cardiology clearance: Sleep study: Diet journal: VTE risk score: VTE risk level: Rehab needs at discharge:
== END | disposition home or self-care (01) ==
LOC: BARWHC3 14:45
PROVIDERS: ATTEND Surgery
DX: Z48.815 Encounter for surgical aftercare following surgery on the digestive system (principal); K21.9 Gastro-esophageal reflux disease without esophagitis; Z98.84 Bariatric surgery status
CPT/HCPCS: 36415; 80053; 82306; 82746; 84443; 85027; 99211

== ENCOUNTER → 2019-07-20 | Outpatient (CLI) | payer BC, MEDICARE ==
[2019-07-20 13:08] VITALS: BMI 55.7
--- NOTE | 2019-07-20 14:37 | P.HPBAR ---
Bariatric H&P - History & Physicial H&P Date: 07/20/19 History & Physicial: Visit/CC: bariatric review of labs/weight check Patient initial contact: Initial weight: 204.117 kg Initial weight in pounds: 450.00 Height: 6 ft Initial BMI: 61.0 Last weight: Current weight: 186.426 kg Current weight in pounds: 411.00 Current BMI: 55.7 [place] body weight (based on NIH guidelines): 80.739 kg Excess body weight loss: 14.3% The patient is a 59 year-old M who presents for Bariatric Assessment. Patient presents today for sleeve gastrectomy follow-up. He essentially gained 5 pounds his last visit. He is minimal GERD. 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 TOTAL BILATERAL KNEES, Cardioversion Past Anesthesia/Blood Transfusion Reactions: No Reported Reaction Additional Past Anesthesia/Blood Transfusion Reaction / Comm: no hx blood transfusion Past Psychological History: Depression Smoking Status: Never smoker Past Alcohol Use History: None Reported Past Drug Use History: None Reported - Past Family History Sister(s) Family Medical History: Cancer Additional Family Medical History / Comment(s): sister #1: breast cancer. sister #2: bronchial tube cancer ( in her 50's from this cancer) Father Family Medical History: Cancer, Congestive Heart Failure (CHF), Coronary Artery Disease (CAD), Hypertension Additional Family Medical History / Comment(s): Leukemia, at age 62 Mother Additional Family Medical History / Comment(s): at age 60 from anuerysm on the brain stem Surgical - Exam - General well developed, well nourished, no distress - Eyes PERRL - ENT normal pinna - Neck no masses - Respiratory normal expansion - Cardiovascular Rhythm: regular - Abdomen Abdomen: soft, non tender Bariatric Assessment & Plan Plan: Morbid obesity with BMI of 56. Patient has had minimal weight loss over the last few months. His GERD is minimal observed. Patient follow-up in 3 months. Bariatric Checklist Checklist: Plan: Checklist: EGD: 1. Hiatal hernia: 2. H. Pylori: HgbA1c: Vitamin D: Smoking: Never smoker Primary care physician referral: Dr Gandhi ([place]) Psychiatry clearance: Cardiology clearance: Sleep study: Diet journal: VTE risk score: VTE risk level: Rehab needs at discharge:
== END | disposition home or self-care (01) ==
LOC: BARWHC3 12:40
PROVIDERS: ATTEND Surgery
DX: Z48.815 Encounter for surgical aftercare following surgery on the digestive system (principal); E66.01 Morbid (severe) obesity due to excess calories; K21.9 Gastro-esophageal reflux disease without esophagitis; Z98.84 Bariatric surgery status; Z68.43 Body mass index [BMI] 50.0-59.9, adult
CPT/HCPCS: 99211

== ENCOUNTER → 2019-11-03 | Outpatient (CLI) | payer BC, MEDICARE ==
[2019-11-03 10:18] LABS: Basophils % (A) 0 %; Eosinophils # (A) 0.1 k/uL (0-0.7); Eosinophils % (A) 1 %; HCT 35.4 % (39.0-53.0); HGB 11.1 gm/dL (13.0-17.5); Lymphocytes # (A) 0.9 k/uL (1.0-4.8); Lymphocytes % (A) 11 %; MCH 25.9 pg (25.0-35.0); MCHC 31.2 g/dL (31.0-37.0); MCV 82.9 fL (80.0-100.0); Mean Platelet Volume 6.7; Monocytes # (A) 0.3 k/uL (0-1.0); Monocytes % (A) 4 %; Neutrophils # (A) 6.8 k/uL (1.3-7.7); Neutrophils % (A) 81 %; Platelet Count 188 k/uL (150-450); RBC 4.27 m/uL (4.30-5.90); RDW 15.3 % (11.5-15.5); WBC 8.4 k/uL (3.8-10.6)
[2019-11-03 16:15] LABS: Chol/HDL Ratio 2.55; LDL Cholesterol,Calculated 59.6 mg/dL (0.0-131.0); VLDL Calculation 16.4 mg/dL (5.00-40.00)
== END | disposition home or self-care (01) ==
LOC: LABWHC1 09:25
PROVIDERS: ATTEND Ophthalmology
DX: H34.8110 Central retinal vein occlusion, right eye, with macular edema (principal); H35.61 Retinal hemorrhage, right eye
CPT/HCPCS: 36415; 80061; 85025

== ENCOUNTER → 2020-01-08 | Day surgery (SDC) | payer BC, MEDICARE ==
[2020-01-06 15:27] VITALS: BMI 55.3
[~2020-01-08] MED LIST changes: -ACETAMINOPHEN TAB 500 MG TAB PO ONE; -DEXAMETHASONE SOD PHOSPHATE 10 MG/ML 1 ML VIAL IV ONE; -HYDROmorphone 1 MG/ML 1 ML SYRINGE IVP PRN; -LIDOCAINE 1% 20 ML VIAL (10MG/ML) FOR IV START INTRADERMA PRN; -MELOXICAM 7.5 MG TAB PO ONE; -MIDAZOLAM 2 MG/2 ML VIAL IV PRN; -ONDANSETRON 4 MG/2 ML VIAL IVP ONE; -SCOPOLAMINE 1.5MG/72HR PATCH TRANSDERM ONE; +SODIUM CHLORIDE 0.9% 1,000 ML IV ONE; -TRANEXAMIC ACID 1,000 MG in SODIUM CHLORIDE 0.9% 100 ML IVPB ONE; -ceFAZolin 3 GM in SODIUM CHLORIDE 0.9% 100 ML IVPB ONE
[2020-01-08 08:16] VITALS: BP 105/53; PULSE 67; RESP 16; TEMP 97.9
[2020-01-08 08:24] LABS: Anisocytosis Slight; Basophils % (A) 1 %; Eosinophils # (A) 0.2 k/uL (0-0.7); Eosinophils % (A) 2 %; HCT 32.3 % (39.0-53.0); HGB 10.2 gm/dL (13.0-17.5); Lymphocytes # (A) 1.2 k/uL (1.0-4.8); Lymphocytes % (A) 14 %; MCH 26.8 pg (25.0-35.0); MCHC 31.6 g/dL (31.0-37.0); MCV 84.9 fL (80.0-100.0); Mean Platelet Volume 7.6; Monocytes # (A) 0.4 k/uL (0-1.0); Monocytes % (A) 4 %; Neutrophils # (A) 6.5 k/uL (1.3-7.7); Neutrophils % (A) 77 %; Platelet Count 219 k/uL (150-450); RDW 16.9 % (11.5-15.5); WBC 8.5 k/uL (3.8-10.6)
[2020-01-08 08:57] LABS: Calcium 9.1 mg/dL (8.4-10.2); Potassium 4.5 mmol/L (3.5-5.1)
== END ==
LOC: CATHCVL 07:49
PROVIDERS: ATTEND Internal Medicine Interventional Cardiology
DX: Z53.8 Procedure and treatment not carried out for other reasons (principal)
CPT/HCPCS: 80048; 85025

== ENCOUNTER 2020-04-05 06:16 | Day surgery (SDC) | payer BC, MEDICARE ==
[2020-04-01 14:12] VITALS: BMI 53.8
[~2020-04-05 06:16] MED LIST changes: +LACTATED RINGERS 1,000 ML IV SCH; -SODIUM CHLORIDE 0.9% 1,000 ML IV ONE; +SODIUM CHLORIDE 0.9% 1,000 ML IV SCH
[2020-04-05] MEDS ORDERED: SODIUM CHLORIDE 0.9% 500 ML 500 ML IV ONE (07:12)
[2020-04-05 07:20] LABS: Basophils % (A) 1 %; Eosinophils # (A) 0.1 k/uL (0-0.7); Eosinophils % (A) 2 %; HCT 30.2 % (39.0-53.0); HGB 9.4 gm/dL (13.0-17.5); Hypochromasia Slight; Lymphocytes # (A) 0.8 k/uL (1.0-4.8); Lymphocytes % (A) 12 %; MCH 27.1 pg (25.0-35.0); MCHC 31.1 g/dL (31.0-37.0); MCV 87.2 fL (80.0-100.0); Mean Platelet Volume 7.6; Monocytes # (A) 0.4 k/uL (0-1.0); Monocytes % (A) 6 %; Neutrophils # (A) 5.5 k/uL (1.3-7.7); Neutrophils % (A) 77 %; Platelet Count 219 k/uL (150-450); RBC 3.46 m/uL (4.30-5.90); WBC 7.1 k/uL (3.8-10.6)
[2020-04-05 07:36] LABS: Potassium 4.9 mmol/L (3.5-5.1)
[2020-04-05] MEDS ORDERED: SODIUM CHLORIDE 0.9% 1,000 ML IV ONE (08:23)
[2020-04-05] MEDS ORDERED: GLYCOPYRROLATE 0.2 MG/ML 2 ML VIAL ONE (08:23)
[2020-04-05] MEDS ORDERED: MIDAZOLAM 2 MG/2 ML VIAL ONE (08:23)
[2020-04-05] MEDS ORDERED: ROCURONIUM BROMIDE 10 MG/ML 5 ML VIAL IV ONE (08:23)
[2020-04-05] MEDS ORDERED: HEPARIN SOD,PORK IN 0.45% NACL 25,000 UNIT in 0.45% NACL 1 250ML.BAG IV ONE (08:23)
[2020-04-05] MEDS ORDERED: HEPARIN SODIUM (1,000 UNIT/ML) 1,000 UNIT in SODIUM CHLORIDE 0.9% 1,000 ML IRRIGATION ONE (08:23)
[2020-04-05] MEDS ORDERED: fentaNYL (PF) 50 MCG/ML 2 ML AMP ONE (08:23)
[2020-04-05] MEDS ORDERED: PHENYLEPHRINE-0.9% NACL SYG 1 MG/10 ML SYRINGE ONE (08:23)
[2020-04-05] MEDS ORDERED: SUCCINYLCHOLINE CHLORIDE VIAL 200 MG/10 ML VIAL IV ONE (08:23)
[2020-04-05] MEDS ORDERED: PROTAMINE SULFATE 10 MG/ML 5 ML VIAL IV ONE (08:23)
[2020-04-05] MEDS ORDERED: FUROSEMIDE 10 MG/ML 2 ML VIAL ONE (08:23)
[2020-04-05] MEDS ORDERED: PROPOFOL 10 MG/ML 20 ML VIAL IV ONE (08:23)
[2020-04-05] MEDS ORDERED: HEPARIN SODIUM,PORCINE 10,000 UNIT/ML 1 ML VIAL ONE (08:23)
[2020-04-05] MEDS ORDERED: ePHEDrine SULFATE/0.9% NACL/PF 50 MG/5 ML SYRINGE IV ONE (08:23)
[2020-04-05] MEDS ORDERED: LIDOCAINE 1% INJ 10MG/ML (20 ML MDV) SQ ONE (09:25)
[2020-04-05] MEDS ORDERED: IOPAMIDOL-370 100ML BTL INJ ONE ×2 (11:06)
[2020-04-05] MEDS ORDERED: LACTATED RINGERS 1,000 ML IV ONE (13:28)
--- NOTE | 2020-04-05 13:44 | P.PCN ---
Preoperative Diagnosis: Diagnosis Atrial fibrillation, symptomatic, refractory to therapy Result Very large left atrium, normal LV function on cardiac echo No left atrial appendage mass seen on intracardiac echo Elevated RA pressures and significantly elevated LA pressure in sinus rhythm Successful pulmonary vein isolation of all veins using cryo-ablation Complete entrance block in all 4 veins confirmed No evidence for phrenic nerve injury Linear ablation along the septum close to the transseptal puncture site, from the roof down to the right inferior pulmonary vein along fractionated electrograms RF ablation along fractionated electrograms in the groove of the left atrium between the left coronary veins and appendage, along the appendage side Esophageal deflection YES Atrial fibrillation was induced with catheter manipulation outside the right superior pulmonary vein in the roof area Electrical cardioversion with a synchronized shock across the chest YES The intravenous distance at the level of the roof of the left atrium was 3.9 cm Linear ablation along the roof was not performed However fractionated electrograms was seen in the mid roof Drop in pressure during atrial fibrillation with a intermittent right bundle branch block aberrancy Procedure details Patient was brought to the EP lab in a fasting state. Written informed consent was obtained prior to the procedure. Procedure performed under general anesthesia After initial muscle relaxant use, muscle relaxants were not given thereafter in order to assess phrenic nerve during procedure. Patient prepped and draped as per protocol Full cryo-set up with standard preparation of the cryoablation tools done. Femoral Venous access obtained on the right and left groins Venous and arterial Sheaths placed. Diagnostic catheters for the high right atrium, phrenic nerve stimulation and pacing, His bundle, RV and coronary sinus placed Intracardiac echo catheter placed. Long sheath placed in the right atrium Left and right transseptal catheterization performed under intracardiac echo guidance. Intravenous heparin with aCT above 300 Later, catheter positioning and balloon positioning in the left atrium, under intracardiac echo guidance Diagnostic EP study with Coronary sinus pacing and recording Baseline measurements HV 50, AH 65 Sinus cycle length 1170, IN interval 155, QRS 122 and QT 495 Transseptal catheterization performed RA pressure 22/11/17 LA pressure 42/9/23 Transseptal catheterization performed with standard sheath. The cryoablation sheath was then placed with an over the wire exchange without any acute complications. All 4 pulmonary veins were isolated in the following sequence: Left superior followed by left inferior followed by right superior followed by right inferior The cryo-ablation balloon was placed at the os of each vein 1.5 mL of IV dye was injected to confirm an occluded vein Goal during cryoablation was to achieve complete occlusion of the pulmonary vein, achieve -30 degrees C at 30 seconds and achieve -40 degrees C at 60 seconds and a time to effect of less than 60-90 seconds, . If not the balloon was repositioned to obtain this result After completion of Cryoblation with durations from 180-240 seconds, entrance block was confirmed with the Attain circular catheter in a roving fashion around the antrum of the pulmonary veins Phrenic nerve pacing was performed from the SVC, right innominate vein area and diaphragm voltage was monitored. Diaphragmatic contractions were also monitored manually for strength of contraction. Parameter goals for each cryo freeze Complete occlusion of the appropriate vein -30 degrees C by 30 seconds -40 degrees C by 60 seconds Minimum between minus 40-55 degrees C Thaw time greater than 10 seconds Balloon visualized by intracardiac echo The esophagus was intubated. Esophageal Temperature monitoring with a CIRCA catheter formed. Esophageal deflection for hypothermia of the esophagus below 30 degrees C Left superior pulmonary vein Complete isolation, entrance block Left inferior pulmonary vein Complete isolation, entrance block Right superior pulmonary vein, during phrenic nerve pacing Complete isolation, entrance block Right inferior pulmonary vein, during phrenic nerve pacing Complete isolation, entrance block At the end of the procedure the Achieve catheter was once again used to check for entrance block Phrenic nerve stimulation was performed to confirm diaphragmatic stimulation the end of the procedure Cine fluoroscopy was performed at the very end of the procedure to confirm movement of both diaphragms with inspiration and expiration At the end of the procedure the patient was extubated Heparin was reversed Venous sheaths were removed and hemostasis assured Procedures performed (PVI - CRYO Ablation) Diagnostic EP study CS pacing and recording Left and right transseptal catheterization 3-D mapping Intracardiac echocardiography Pulmonary vein isolation with transseptal and comprehensive EPS, 36018 Linear ablation along the septum along fractionated electrograms, +10217 Linear ablation, left atrium, along the ridge between left superior pulmonary vein and left atrial appendage, +[id number]
[2020-04-05] MEDS ORDERED: HYDROcodone/APAP 5-325MG 1 EACH TAB PO PRN (13:54)
[2020-04-05] MEDS ORDERED: ACETAMINOPHEN IV (For NPO) 1,000 MG in EMPTY BAG 1 BAG IVPB ONE (13:54)
[2020-04-05] MEDS ORDERED: ACETAMINOPHEN TAB 325 MG TAB PO PRN (13:54)
[2020-04-05] MEDS ORDERED: ePHEDrine 50 MG/ML 1 ML AMP IVP ONE (14:27)
[2020-04-05] MEDS: cloNIDine HCL 0.1 MG TAB PO SCH ×2 (16:29→20:40)
[2020-04-05] MEDS: hydrALAZINE HCL 50 MG TAB PO SCH (16:30)
[2020-04-05] MEDS: SPIRONOLACTONE 25 MG TAB PO SCH (20:41)
[2020-04-05] MEDS ORDERED: PRAVASTATIN SODIUM 20 MG TAB PO SCH (21:00)
[2020-04-05] MEDS ORDERED: RIVAROXABAN 15 MG TAB PO SCH (21:00)
[2020-04-05] MEDS ORDERED: METOPROLOL TARTRATE 50 MG TAB PO SCH (21:00)
[2020-04-06] MEDS: hydrALAZINE HCL 50 MG TAB PO SCH ×2 (02:41→08:44)
[2020-04-06 05:24] VITALS: RESP 16
--- NOTE | 2020-04-06 07:38 | P.DS ---
Providers Attending physician: Jamin Myers Primary care physician: [facility] Course: Patient is doing well. No chest discomfort no dizziness lightheadedness groin is healing well no hematoma Breath sounds are clear no rhonchi no crackles Normal heart sounds. No murmurs Blood pressure 105/66. His mercury afebrile 97.3F pulse rate in the 60s Breath sounds are clear no rhonchi no crackles Normal heart sounds no murmurs Abdomen soft No lower extremity edema trophic changes in the next Impression Persistent atrial fibrillation status post A. fib ablation with pulmonary vein isolation and linear ablation in the left atrium Elevated right atrial pressures Significantly elevated left atrial pressures Hypertension Dyslipidemia Suggest Removed groin sutures Ambulate in the hallways Discharge home by [address] Christopher in 1-2 weeks Plan - Discharge Summary Discharge Rx Participant: No New Discharge Prescriptions: No Action Lisinopril 40 mg PO DAILY Spironolactone [Aldactone] 25 mg PO BID Pravastatin Sodium [Pravachol] 20 mg PO HS Ranitidine HCl 150 mg PO DAILY Metoprolol Tartrate [Lopressor] 50 mg PO HS Nitroglycerin Sl Tabs [Nitrostat] 0.4 mg SUBLINGUAL Q5M PRN PRN Reason: Chest Pain Flecainide [Tambocor] 100 mg PO DAILY Multivitamins, Thera [Multivitamin (formulary)] 1 tab PO DAILY Furosemide [Lasix] 80 mg PO DAILY Citalopram Hydrobromide [CeleXA] 40 mg PO DAILY hydrALAZINE HCL [Apresoline] 100 mg PO TID cloNIDine HCL [Catapres] 0.1 mg PO TID Metoprolol Tartrate [Lopressor] 100 mg PO QAM Rivaroxaban [Xarelto] 20 mg PO HS Discharge Medication List Flecainide [Tambocor] 100 mg PO DAILY 01/22/15 [History] Lisinopril 40 mg PO DAILY 01/22/15 [History] Metoprolol Tartrate [Lopressor] 50 mg PO HS 01/22/15 [History] Multivitamins, Thera [Multivitamin (formulary)] 1 tab PO DAILY 01/22/15 [History] Nitroglycerin Sl Tabs [Nitrostat] 0.4 mg SUBLINGUAL Q5M PRN 01/22/15 [History] Pravastatin Sodium [Pravachol] 20 mg PO HS 01/22/15 [History] Ranitidine HCl 150 mg PO DAILY 01/22/15 [History] Spironolactone [Aldactone] 25 mg PO BID 01/22/15 [History] Citalopram Hydrobromide [CeleXA] 40 mg PO DAILY 07/03/17 [History] Furosemide [Lasix] 80 mg PO DAILY 07/03/17 [History] Metoprolol Tartrate [Lopressor] 100 mg PO QAM 05/04/19 [History] Rivaroxaban [Xarelto] 20 mg PO HS 05/04/19 [History] cloNIDine HCL [Catapres] 0.1 mg PO TID 05/04/19 [History] hydrALAZINE HCL [Apresoline] 100 mg PO TID 05/04/19 [History] Follow up Appointment(s)/Referral(s): Jung Christopher MD [STAFF PHYSICIAN] - 1 Week Activity/Diet/Wound Care/Special Instructions: Post EP study - Ablation instructions 1. Keep access sites dry for 2 days. 2. No heavy lifting or straining for 2 days. 3. Avoid bending the hips repeatedly for 2 days. 4. You may go up and down stairs slowly Call if the following is noted 1. Bleeding, increasing swelling or pain at the access sites. 2. Increasing chest discomfort, especially upon taking a deep breath. 3. Increasing shortness of breath, at rest or with exertion. 4. Undue cough / phlegm 5. Difficulty or pain while swallowing. 6. Pain or change in color in the extremities. 7. Fever, chills, rigors. 8. Increasing headache or neurologic symptoms. 9. Dizziness, fainting, palpitations Continue cardiac medications Continue Xarelto Follow-up with with Dr. Christopher within one week
--- NOTE | 2020-04-06 07:40 | P.PRLE ---
RE: Geovani Lees Dear Miguel Olivo underwent an EP study and ablation for atrial fibrillation with pulmonary vein isolation and linear ablation of the left atrium At this time he will continue his anticoagulation and flecainide His LV function is normal but his left atrial pressures are significantly elevated No changes in the medications at this time He will follow up with you and Dr. Feliciano as before Thank you for entrusting me with the care of the patient Warm regards Sincerely Jamin Myers
[2020-04-06] MEDS: SPIRONOLACTONE 25 MG TAB PO SCH (08:45)
[2020-04-06] MEDS: cloNIDine HCL 0.1 MG TAB PO SCH (08:45)
[2020-04-06 08:51] VITALS: BP 141/79; PULSE 71; TEMP 98.1
[2020-04-06] MEDS ORDERED: FUROSEMIDE 80 MG TAB PO SCH (09:00)
[2020-04-06] MEDS ORDERED: FLECAINIDE 50 MG TAB PO SCH (09:00)
[2020-04-06] MEDS ORDERED: CITALOPRAM HYDROBROMIDE 20 MG TAB PO SCH (09:00)
[2020-04-06] MEDS ORDERED: METOPROLOL TARTRATE 50 MG TAB PO SCH (09:00)
[2020-04-06] MEDS ORDERED: LISINOPRIL 20 MG TAB PO SCH (09:00)
== END 2020-04-06 11:20 | disposition home or self-care (01) ==
LOC: CATHEP 06:16 → 1SOBS 13:24 → CATHEP 04-06 11:20
PROVIDERS: ATTEND Internal Medicine Clinical Cardiac Electrophysiology
DX: I48.19 Other persistent atrial fibrillation (principal); I10 Essential (primary) hypertension; E78.5 Hyperlipidemia, unspecified; I11.0 Hypertensive heart disease with heart failure; I50.9 Heart failure, unspecified; J44.9 Chronic obstructive pulmonary disease, unspecified; G47.33 Obstructive sleep apnea (adult) (pediatric); F32.9 Major depressive disorder, single episode, unspecified; E66.01 Morbid (severe) obesity due to excess calories; Z68.43 Body mass index [BMI] 50.0-59.9, adult; Z98.84 Bariatric surgery status; Z98.1 Arthrodesis status; Z96.653 Presence of artificial knee joint, bilateral; Z98.890 Other specified postprocedural states; Z79.01 Long term (current) use of anticoagulants; Z79.899 Other long term (current) drug therapy; Z91.040 Latex allergy status
CPT/HCPCS: 85347 ×2; 92960; 93662; 93613; 93656; 93657; 80048; 85025; C1769 ×6; C1894 ×2; C1730 ×2; C1759; C1893; C1733; C1766; C1732; J2001; J1644 ×2; Q9967

== ENCOUNTER 2020-04-18 22:40 | Inpatient (IN) | payer BC, MEDICARE ==
[2020-04-18] MEDS ORDERED: SODIUM CHLORIDE 0.9% 1,000 ML IV STA (23:16)
[2020-04-18] MEDS ORDERED: SODIUM CHLORIDE 0.9% 500 ML 500 ML IV STA (23:16)
[2020-04-18 23:37] LABS: Potassium 5.7 mmol/L (3.5-5.1)
--- NOTE | 2020-04-18 23:53 | XR ---
EXAMINATION TYPE: XR chest 2V DATE OF EXAM: 04/18/2020 COMPARISON: NONE HISTORY: Weakness TECHNIQUE: 2 views FINDINGS: Heart appears enlarged. There is no heart failure. Lungs are clear of infiltrate. There are chest leads. Bony thorax is intact. IMPRESSION: Cardiomegaly. No active cardiopulmonary disease.
[2020-04-18 23:55] LABS: Basophils % (A) 0 %; Eosinophils # (A) 0.1 k/uL (0-0.7); Eosinophils % (A) 1 %; Hypochromasia Moderate; Lymphocytes # (A) 0.7 k/uL (1.0-4.8); Lymphocytes % (A) 5 %; MCHC 31.2 g/dL (31.0-37.0); MCV 86.4 fL (80.0-100.0); Mean Platelet Volume 6.7; Monocytes # (A) 0.6 k/uL (0-1.0); Monocytes % (A) 4 %; Neutrophils % (A) 88 %; Platelet Count 354 k/uL (150-450); RBC 2.89 m/uL (4.30-5.90); RDW 13.8 % (11.5-15.5); WBC 14.7 k/uL (3.8-10.6)
--- NOTE | 2020-04-18 23:56 | CT ---
EXAMINATION TYPE: CT brain wo con DATE OF EXAM: 04/18/2020 COMPARISON: None HISTORY: Weakness CT DLP: 1076.4 mGycm Automated exposure control for dose reduction was used. There is mild cerebral cortical atrophy. There is no mass effect nor midline shift. There is no sign of intracranial hemorrhage. Calvarium is intact. Skull base is intact. There is normal aeration of th e temporal bones. IMPRESSION: Cerebral atrophy. No acute intracranial abnormality.
[2020-04-18 23:57] LABS: HGB 7.8 gm/dL (13.0-17.5)
--- NOTE | 2020-04-19 00:11 | ED ---
Weakness HPI - General Chief complaint: Weakness Stated complaint: Weakness Time Seen by Provider: 04/18/20 23:10 Source: EMS, RN notes reviewed, old records reviewed Mode of arrival: EMS Limitations: no limitations - History of Present Illness Initial comments: This is a 60-year-old male DF for evaluation complains of weakness multiple recent falls nature. Elevated heart rate at times, blood in the stool. No nausea vomiting no fevers no current abdominal pain. Patient is presented with family for evaluation regarding multiple recent falls and similar events like this as well as occasional confusion MD Complaint: generalized weakness Location: generalized Severity: moderate Severity scale (1-10): 6 Consistency: constant Improves with: none Worsens with: none Context: history of similar Associated Symptoms: denies other symptoms - Related Data Home Medications Medication Instructions Recorded Confirmed Metoprolol Tartrate [Lopressor] 50 mg PO BID 01/22/15 04/19/20 Multivitamins, Thera [Multivitamin 1 tab PO DAILY 01/22/15 04/19/20 (formulary)] Nitroglycerin Sl Tabs [Nitrostat] 0.4 mg SUBLINGUAL Q5M PRN 01/22/15 04/19/20 Citalopram Hydrobromide [CeleXA] 40 mg PO DAILY 07/03/17 04/19/20 Rivaroxaban [Xarelto] 20 mg PO HS 05/04/19 04/19/20 Albuterol Inhaler [Ventolin Hfa 2 puff INHALATION RT-Q4H PRN 04/19/20 04/19/20 Inhaler] Diltiazem HCl [Diltiazem HCl 24Hr 180 mg PO DAILY 04/19/20 04/19/20 ER] Ferrous Sulfate [Iron (65 MG 325 mg PO DAILY 04/19/20 04/19/20 Elemental)] Flecainide Acetate 100 mg PO DAILY@1200 04/19/20 04/19/20 Flecainide Acetate [Tambocor] 150 mg PO BID 04/19/20 04/19/20 Furosemide [Lasix] 20 mg PO BID 04/19/20 04/19/20 Rosuvastatin [Crestor] 20 mg PO DAILY 04/19/20 04/19/20 Previous Rx's Medication Instructions Recorded Famotidine [Pepcid] 20 mg PO DAILY tab 04/22/20 Tamsulosin [Flomax] 0.4 mg PO PC-SUPPER cap.er.24h 04/22/20 hydrALAZINE HCL [Apresoline] 25 mg PO TID tab 04/22/20 Allergies Allergy/AdvReac Type Severity Reaction Status Date / Time coconut Allergy Rash/Hives Verified 04/19/20 07:24 latex Allergy Rash/Hives Verified 04/19/20 07:24 STERI STRIPS Allergy RASH,SKIN Uncoded 04/19/20 07:24 INFECTION Review of Systems ROS Statement: Those systems with pertinent positive or pertinent negative responses have been documented in the HPI. ROS Other: All systems not noted in ROS Statement are negative. Past Medical History Past Medical History: Atrial Fibrillation, Heart Failure, GERD/Reflux, Hyp erlipidemia, Hypertension, Myocardial Infarction ([place]), Rheumatoid Arthritis ([place]), Sleep Apnea/CPAP/BIPAP Additional Past Medical History / Comment(s): See Dr Myers's H&P,uses C PAP MACHINE,freq falls-uses cane,dimitri cellulitis Last Myocardial Infarction Date:: 07-04-2012 History of Any Multi-Drug Resistant Organisms: MRSA Date of last positivie culture/infection: 04-05-15 MDRO Source:: left knee Past Surgical History: Bariatric Surgery, Heart Catheterization, Joint Replacement Additional Past Surgical History / Comment(s): Lap band,lapband removed,gastric sleeve, neck x 2, left ankle, left elbow. TOTAL BILATERAL KNEES, ablation 03/2020 Past Anesthesia/Blood Transfusion Reactions: No Reported Reaction Additional Past Anesthesia/Blood Transfusion Reaction / Comment(s): no hx blood transfusion Past Psychological History: Depression Smoking Status: Never smoker Past Alcohol Use History: None Reported Past Drug Use History: None Reported - Past Family History Sister(s) Family Medical History: Cancer Additional Family Medical History / Comment(s): sister #1: breast cancer. sister #2: bronchial tube cancer ( in her 50's from this cancer) Father Family Medical History: Cancer, Congestive Heart Failure (CHF), Coronary Artery Disease (CAD), Hypertension Additional Family Medical History / Comment(s): Leukemia, at age 62 Mother Additional Family Medical History / Comment(s): at age 60 from anuerysm on the brain stem General Exam Limitations: no limitations General appearance: alert, in no apparent distress Head exam: Present: atraumatic, normocephalic, normal inspection Eye exam: Present: normal appearance, PERRL, EOMI. Absent: scleral icterus, conjunctival injection, periorbital swelling ENT exam: Present: normal exam, mucous membranes moist Neck exam: Present: normal inspection. Absent: tenderness, meningismus, lymphadenopathy Respiratory exam: Present: normal lung sounds bilaterally. Absent: respiratory distress, wheezes, rales, rhonchi, stridor Cardiovascular Exam: Present: regular rate, normal rhythm, normal heart sounds. Absent: systolic murmur, diastolic murmur, rubs, gallop, clicks GI/Abdominal exam: Present: soft, normal bowel sounds. Absent: distended, tenderness, guarding, rebound, rigid Extremities exam: Present: normal inspection, full ROM, normal capillary refill. Absent: tenderness, pedal edema, joint swelling, calf tenderness Back exam: Present: normal inspection Neurological exam: Present: alert, oriented X3, CN II-XII intact Psychiatric exam: Present: normal affect, normal mood Skin exam: Present: warm, dry, intact, normal color. Absent: rash Course Vital Signs 04/18/20 04/18/20 04/18/20 22:44 23:29 23:30 Temperature 98.4 F Pulse Rate 58 L Pulse Rate [ Seo Team Lead ] Respiratory 20 Rate Blood Pressure 82/38 88/43 88/43 Blood Pressure [Right Arm Sitting] O2 Sat by Pulse 96 97 97 Oximetry 04/19/20 04/19/20 04/19/20 00:00 00:30 01:00 Temperature Pulse Rate 53 L 53 L 52 L Pulse Rate [ Seo Team Lead ] Respiratory 17 20 18 Rate Blood Pressure 81/41 89/41 92/44 Blood Pressure [Right Arm Sitting] O2 Sat by Pulse 98 98 98 Oximetry 04/19/20 04/19/20 04/19/20 01:30 02:00 02:30 Temperature 98.0 F Pulse Rate 63 52 L 54 L Pulse Rate [ Seo Team Lead ] Respiratory 17 17 Rate Blood Pressure 94/46 81/37 92/39 Blood Pressure [Right Arm Sitting] O2 Sat by Pulse 98 98 97 Oximetry 04/19/20 04/19/20 04/19/20 03:00 03:30 04:00 Temperature Pulse Rate 50 L Pulse Rate [ Seo Team Lead ] Respiratory 17 Rate Blood Pressure 99/49 73/54 96/49 Blood Pressure [Right Arm Sitting] O2 Sat by Pulse 98 97 97 Oximetry 04/19/20 04/19/20 04/19/20 04:30 06:15 06:30 Temperature Pulse Rate Pulse Rate [ Seo Team Lead ] Respiratory 16 Rate Blood Pressure 114/96 121/77 120/88 Blood Pressure [Right Arm Sitting] O2 Sat by Pulse 97 Oximetry 04/19/20 04/19/20 04/19/20 06:45 09:26 09:27 Temperature 97.1 F L 97.4 F L Pulse Rate 61 Pulse Rate [ 62 Seo Team Lead ] Respiratory 18 18 Rate Blood Pressure 104/87 124/59 Blood Pressure 125/59 [Right Arm Sitting] O2 Sat by Pulse 97 Oximetry 04/19/20 04/19/20 04/19/20 09:36 10:07 11:20 Temperature 98.7 F 98.5 F 96.9 F L Pulse Rate 62 63 Pulse Rate [ 65 Seo Team Lead ] Respiratory 18 18 18 Rate Blood Pressure 103/62 131/59 Blood Pressure 110/74 [Right Arm Sitting] O2 Sat by Pulse 96 97 97 Oximetry 04/19/20 04/19/20 04/19/20 13:14 15:23 15:42 Temperature 97.0 F L 97.2 F L 97.9 F Pulse Rate 67 65 Pulse Rate [ 66 Seo Team Lead ] Respiratory 18 18 18 Rate Blood Pressure 131/67 94/66 Blood Pressure 108/55 [Right Arm Sitting] O2 Sat by Pulse 99 97 Oximetry 04/19/20 04/19/20 04/19/20 16:12 18:56 20:26 Temperature 98.3 F 97.9 F Pulse Rate 63 64 71 Pulse Rate [ Seo Team Lead ] Respiratory 18 18 16 Rate Blood Pressure 117/63 109/52 117/80 Blood Pressure [Right Arm Sitting] O2 Sat by Pulse 97 97 97 Oximetry - Reevaluation(s) Reevaluation #1: Medical records reviewed No significant feelings of syncope or near syncope patient is feeling better EKG Findings - EKG Comments: EKG Findings:: EKG sinus pericarditis 52, [place] 158 QRS 126 QTc 429 Medical Decision Making - Medical Decision Making 60 male to the ER for evaluation patient is GI bleed anemia A. fib with RVR and renal failure. Patient be admitted for further evaluation monitoring - Lab Data Result diagrams: 04/22/20 06:04 04/22/20 06:04 Lab Results 04/18/20 04/18/20 04/18/20 Range/Units 23:16 23:16 23:16 WBC 14.7 H (3.8-10.6) k/uL RBC 2.89 L (4.30-5.90) m/uL Hgb 7.8 L D (13.0-17.5) gm/dL Hct 25.0 L (39.0-53.0) % MCV 86.4 (80.0-100.0) fL MCH 27.0 (25.0-35.0) pg MCHC 31.2 (31.0-37.0) g/dL RDW 13.8 (11.5-15.5) % Plt Count 354 (150-450) k/uL Neutrophils % 88 % Lymphocytes % 5 % Monocytes % 4 % Eosinophils % 1 % Basophils % 0 % Neutrophils # 13.0 H (1.3-7.7) k/uL Lymphocytes # 0.7 L (1.0-4.8) k/uL Monocytes # 0.6 (0-1.0) k/uL Eosinophils # 0.1 (0-0.7) k/uL Basophils # 0.0 (0-0.2) k/uL Hypochromasia Moderate PT 14.1 H (9.0-12.0) sec INR 1.4 H (<1.2) APTT 56.0 H (22.0-30.0) sec Sodium 133 L (137-145) mmol/L Potassium 5.7 H (3.5-5.1) mmol/L Chloride 101 (98-107) mmol/L Carbon Dioxide 15 L (22-30) mmol/L Anion Gap 17 mmol/L BUN 133 H* (9-20) mg/dL Creatinine 8.37 H* (0.66-1.25) mg/dL Est GFR (CKD-EPI)AfAm 7 (>60 ml/min/1.73 sqM) Est GFR (CKD-EPI)NonAf 6 (>60 ml/min/1.73 sqM) Glucose 116 H (74-99) mg/dL Calcium 8.4 (8.4-10.2) mg/dL Phosphorus 7.4 H (2.5-4.5) mg/dL Magnesium 3.2 H (1.6-2.3) mg/dL Total Bilirubin 0.2 (0.2-1.3) mg/dL AST 27 (17-59) U/L ALT 19 (4-49) U/L Alkaline Phosphatase 107 (38-126) U/L Troponin I (0.000-0.034) ng/mL Total Protein 6.3 (6.3-8.2) g/dL Albumin 3.4 L (3.5-5.0) g/dL 04/18/20 Range/Units 23:16 WBC (3.8-10.6) k/uL RBC (4.30-5.90) m/uL Hgb (13.0-17.5) gm/dL Hct (39.0-53.0) % MCV (80.0-100.0) fL MCH (25.0-35.0) pg MCHC (31.0-37.0) g/dL RDW (11.5-15.5) % Plt Count (150-450) k/uL Neutrophils % % Lymphocytes % % Monocytes % % Eosinophils % % Basophils % % Neutrophils # (1.3-7.7) k/uL Lymphocytes # (1.0-4.8) k/uL Monocytes # (0-1.0) k/uL Eosinophils # (0-0.7) k/uL Basophils # (0-0.2) k/uL Hypochromasia PT (9.0-12.0) sec INR (<1.2) APTT (22.0-30.0) sec Sodium (137-145) mmol/L Potassium (3.5-5.1) mmol/L Chloride (98-107) mmol/L Carbon Dioxide (22-30) mmol/L Anion Gap mmol/L BUN (9-20) mg/dL Creatinine (0.66-1.25) mg/dL Est GFR (CKD-EPI)AfAm (>60 ml/min/1.73 sqM) Est GFR (CKD-EPI)NonAf (>60 ml/min/1.73 sqM) Glucose (74-99) mg/dL Calcium (8.4-10.2) mg/dL Phosphorus (2.5-4.5) mg/dL Magnesium (1.6-2.3) mg/dL Total Bilirubin (0.2-1.3) mg/dL AST (17-59) U/L ALT (4-49) U/L Alkaline Phosphatase (38-126) U/L Troponin I 0.023 (0.000-0.034) ng/mL Total Protein (6.3-8.2) g/dL Albumin (3.5-5.0) g/dL - Radiology Data Radiology results: report reviewed (CT brain and chest x-ray are negative for acute disease), image reviewed Critical Care Time Critical Care Time: Yes Total Critical Care Time: 31 Disposition Clinical Impression: Acute renal failure, GI bleed, Anemia, Bradycardia, Weakness, Uremia, Dehydration Disposition: ADMITTED IP TO THIS [facility] Condition: Good Is patient prescribed a controlled substance at d/c from ED?: No
[2020-04-19 00:21] LABS: Albumin 3.4 g/dL (3.5-5.0); Calcium 8.4 mg/dL (8.4-10.2); Magnesium 3.2 mg/dL (1.6-2.3); Phosphorus 7.4 mg/dL (2.5-4.5); Total Bilirubin 0.2 mg/dL (0.2-1.3); Total Protein 6.3 g/dL (6.3-8.2)
[2020-04-19 00:26] LABS: INR 1.4 (<1.2); Prothrombin Time 14.1 sec (9.0-12.0)
[2020-04-19] MEDS ORDERED: SODIUM CHLORIDE 0.9% 1,000 ML IV STA (00:35)
[2020-04-19] MEDS ORDERED: SODIUM BICARB 8.4% 50 ML SYR (1 MEQ/ML) IV STA (00:35)
[2020-04-19] MEDS ORDERED: SODIUM CHLORIDE 0.9% 2,000 ML IV STA (00:35)
[2020-04-19] MEDS: DEXTROSE 5% IN WATER 1,000 ML with SODIUM BICARB (1 MEQ/ML) 150 ML IV SCH ×2 (02:03→15:17)
[2020-04-19] MEDS ORDERED: methylPREDNISolone SOD SUCCI 125 MG/2 ML VIAL IV STA (03:42)
[2020-04-19 06:39] LABS: Appearance,Urine Clear (Clear); Bacteria,Urine Rare /hpf; Bilirubin,Urine Negative (Negative); Blood,Urine Negative (Negative); Color,Urine Yellow; Glucose,Urine (UA) Negative (Negative); Hyaline Casts,Urine 1 /lpf (0-2); Ketones,Urine Negative (Negative); Leukocyte Esterase,Urine Negative (Negative); Mucus,Urine Rare /hpf; Nitrite,Urine Negative (Negative); Protein,Urine 1+ (Negative); RBC,Urine 1 /hpf (0-5); Specific Gravity,Urine 1.011 (1.001-1.035); Squamous Epithelial Cell,Urine <1 /hpf (0-4); Urobilinogen,Urine <2.0 mg/dL (<2.0); WBC,Urine 1 /hpf (0-5)
[2020-04-19] MEDS ORDERED: ALBUTEROL NEBULIZED 2.5 MG/3 ML INHALATION PRN (09:44)
[2020-04-19] MEDS ORDERED: NITROGLYCERIN SL TABS 0.4 MG TAB SUBLINGUAL PRN (09:44)
--- NOTE | 2020-04-19 10:50 | P.HPIM ---
History of Present Illness H&P Date: 04/19/20 Chief Complaint: weakness This is a 60-year-old male, patient of Dr. Harrington, with a past medical history of atrial fibrillation, congestive heart failure, GERD, hyperlipidemia, hypertension, previous myocardial infarction, rheumatoid arthritis, and obstructive sleep apnea. Patient was recently seen by Dr. Myers for persistent atrial fibrillation status post A. fib ablation on 04/05/2020, did well after the procedure and was sent home. Patient reports he was at home when he was experiencing frequent falls, generalized weakness, confusion, and in no urine output for the last 7-10 days. Patient then presented to the emergency department, CT brain showed cerebral atrophy, no intracranial abnormality. Chest x-ray showed cardiomegaly, with no active cardiopulmonary disease. Labs were obtained and showed BUN 133, creatinine 8.37, recent kidney function from 04/05/20 showed creatinine of 2.23, BUN is 63. He was found to be in acute renal failure. He was started on a bicarb drip, nephrology was consulted, will likely need urgent dialysis. Straight cath was performed and 600 mL's of urine was obtained. Will have Gilmore catheter placed for strict I&O's. Will obtain ultrasound of the kidney bladder to check for obstructive uropathy, may need consult with urology. Currently acute renal failure of unknown etiology. Hemoglobin was also low on the lower side at 9.4, repeat hemoglobin this morning noted to drop to 7.8, 1 unit packed red blood cells was ordered. Patient's Xarelto is on hold, will obtain occult blood for possible GI bleed. Cardiology consulted for recent A. fib with ablation. Vital signs are currenlty stable, he is afebrile 98.5, 97% on 2 L, blood pressure 131/59. Review of Systems Constitutional: Reports fatigue, Reports malaise, Reports weakness Ears, nose, mouth and throat: Denies headache, Denies nasal congestion, Denies nasal discharge, Denies sinus pain, Denies sinus pressure, Denies sore throat Cardiovascular: Reports edema, Reports irregular heart beat, Reports leg edema, Reports shortness of breath, Denies chest pain, Denies orthopnea, Denies palpitations, Denies syncope Respiratory: Reports dyspnea, Reports sleep apnea, Denies congestion, Denies cough, Denies pain, Denies pleurisy, Denies wheezing Gastrointestinal: Denies abdominal pain, Denies diarrhea, Denies heartburn, Denies indigestion, Denies nausea, Denies vomiting Genitourinary: Reports urinary retention, Denies flank pain, Denies hematuria, Denies kidney stones, Denies urinary frequency, Denies urinary hesitancy Musculoskeletal: Reports frequent falls, Reports gait dysfunction, Reports muscle weakness, Denies limitation of motion, Denies neck pain Neurological: Reports confusion, Reports weakness, Denies loss of vision, Denies numbness, Denies paralysis, Denies seizures, Denies syncope Endocrine: Reports fatigue, Denies excessive sweating, Denies excessive thirst, Denies flushing, Denies heat intolerance Past Medical History Past Medical History: Atrial Fibrillation, Heart Failure, GERD/Reflux, Hyperlipidemia, Hypertension, Myocardial Infarction ([place]), Rheumatoid Arthritis ([place]), Sleep Apnea/CPAP/BIPAP Additional Past Medical History / Comment(s): See Dr Myers's H&P,uses C PAP MACHINE,freq falls-uses cane,dimitri cellulitis Last Myocardial Infarction Date:: 07-04-2012 History of Any Multi-Drug Resistant Organisms: MRSA Date of last positivie culture/infection: 04-05-15 MDRO Source:: left knee Past Surgical History: Bariatric Surgery, Heart Catheterization, Joint Replacement Additional Past Surgical History / Comment(s): Lap band,lapband removed,gastric sleeve, neck x 2, left ankle, left elbow. TOTAL BILATERAL KNEES, ablation 03/2020 Past Anesthesia/Blood Transfusion Reactions: No Reported Reaction Additional Past Anesthesia/Blood Transfusion Reaction / Comment(s): no hx blood transfusion Past Psychological History: Depression Smoking Status: Never smoker Past Alcohol Use History: None Reported Past Drug Use History: None Reported - Past Family History Sister(s) Family Medical History: Cancer Additional Family Medical History / Comment(s): sister #1: breast cancer. sister #2: bronchial tube cancer ( in her 50's from this cancer) Father Family Medical History: Cancer, Congestive Heart Failure (CHF), Coronary Artery Disease (CAD), Hypertension Additional Family Medical History / Comment(s): Leukemia, at age 62 Mother Additional Family Medical History / Comment(s): at age 60 from anuerysm on the brain stem Medications and Allergies Home Medications Medication Instructions Recorded Confirmed Type RX: Metoprolol Tartrate [Lopressor] 50 mg PO BID 01/22/15 04/19/20 History RX: Multivitamins, Thera 1 tab PO DAILY 01/22/15 04/19/20 History [Multivitamin (formulary)] RX: Nitroglycerin Sl Tabs 0.4 mg SUBLINGUAL Q5M PRN 01/22/15 04/19/20 History [Nitrostat] RX: Ranitidine HCl 150 mg PO BID 01/22/15 04/19/20 History Citalopram Hydrobromide [CeleXA] 40 mg PO DAILY 07/03/17 04/19/20 History Furosemide [Lasix] 80 mg PO DAILY 07/03/17 04/19/20 History Rivaroxaban [Xarelto] 20 mg PO HS 05/04/19 04/19/20 History hydrALAZINE HCL [Apresoline] 100 mg PO TID 05/04/19 04/19/20 History Albuterol Inhaler [Ventolin Hfa 2 puff INHALATION RT-Q4H PRN 04/19/20 04/19/20 History Inhaler] Diltiazem HCl [Diltiazem HCl 24Hr 180 mg PO DAILY 04/19/20 04/19/20 History ER] Ferrous Sulfate [Feosol] 325 mg PO DAILY 04/19/20 04/19/20 History Flecainide Acetate [Tambocor] 150 mg PO BID 04/19/20 04/19/20 History Furosemide [Lasix] 20 mg PO BID 04/19/20 04/19/20 History RX: Flecainide Acetate 100 mg PO DAILY@1200 04/19/20 04/19/20 History Rosuvastatin [Crestor] 20 mg PO DAILY 04/19/20 04/19/20 History Spironolactone [Aldactone] 50 mg PO DAILY 04/19/20 04/19/20 History Valsartan [Diovan] 320 mg PO DAILY 04/19/20 04/19/20 History Allergies Allergy/AdvReac Type Severity Reaction Status Date / Time coconut Allergy Rash/Hives Verified 04/19/20 07:24 latex Allergy Rash/Hives Verified 04/19/20 07:24 STERI STRIPS Allergy RASH,SKIN Uncoded 04/19/20 07:24 INFECTION Physical Exam Vitals: Vital Signs Temp Pulse Resp BP Pulse Ox 04/19/20 09:36 98.7 F 62 18 103/62 96 04/19/20 09:27 97.4 F L 61 18 124/59 04/19/20 06:45 104/87 04/19/20 06:30 120/88 04/19/20 06:15 121/77 04/19/20 04:30 16 114/96 97 04/19/20 04:00 17 96/49 97 04/19/20 03:30 50 L 73/54 97 04/19/20 03:00 99/49 98 04/19/20 02:30 54 L 92/39 97 04/19/20 02:00 98.0 F 52 L 17 81/37 98 04/19/20 01:30 63 17 94/46 98 04/19/20 01:00 52 L 18 92/44 98 04/19/20 00:30 53 L 20 89/41 98 04/19/20 00:00 53 L 17 81/41 98 04/18/20 23:30 88/43 97 04/18/20 23:29 88/43 97 04/18/20 22:44 98.4 F 58 L 20 82/38 96 Intake and Output 04/18/20 04/19/20 04/19/20 22:59 06:59 14:59 Intake Total 0 Balance 0 Intake: Blood Product 0 Rc Pheresis 2 As3 Unit 0 [id number] Other: Weight 158.757 kg - Constitutional General appearance: cooperative, mild distress, morbidly obese - EENT Eyes: EOMI, PERRLA, normal appearance ENT: hearing grossly normal, normal oropharynx, no thrush - Neck Neck: no lymphadenopathy, normal ROM, no stridor, no thyromegaly - Respiratory Respiratory: bilateral: diminished, negative: rhonchi, wheezing, prolonged expiration, prolonged inspiration - Cardiovascular Rhythm: regular Heart sounds: normal: S1, S2 - Gastrointestinal General gastrointestinal: no organomegaly, soft, no tenderness - Neurologic Neurologic: CNII-XII intact - Musculoskeletal Musculoskeletal: generalized weakness, strength equal bilaterally - Psychiatric Psychiatric: A&O x's 3 Results CBC & Chem 7: 04/20/20 06:16 04/20/20 06:16 Labs: Abnormal Lab Results - Last 24 Hours (Table) 04/18/20 04/18/20 04/18/20 Range/Units 23:16 23:16 23:16 WBC 14.7 H (3.8-10.6) k/uL RBC 2.89 L (4.30-5.90) m/uL Hgb 7.8 L D (13.0-17.5) gm/dL Hct 25.0 L (39.0-53.0) % Neutrophils # 13.0 H (1.3-7.7) k/uL Lymphocytes # 0.7 L (1.0-4.8) k/uL PT 14.1 H (9.0-12.0) sec INR 1.4 H (<1.2) APTT 56.0 H (22.0-30.0) sec Sodium 133 L (137-145) mmol/L Potassium 5.7 H (3.5-5.1) mmol/L Carbon Dioxide 15 L (22-30) mmol/L BUN 133 H* (9-20) mg/dL Creatinine 8.37 H* (0.66-1.25) mg/dL Glucose 116 H (74-99) mg/dL Phosphorus 7.4 H (2.5-4.5) mg/dL Magnesium 3.2 H (1.6-2.3) mg/dL Albumin 3.4 L (3.5-5.0) g/dL Urine Protein (Negative) Urine Bacteria (None) /hpf Urine Mucus (None) /hpf Crossmatch 04/19/20 04/19/20 Range/Units 04:35 06:12 WBC (3.8-10.6) k/uL RBC (4.30-5.90) m/uL Hgb (13.0-17.5) gm/dL Hct (39.0-53.0) % Neutrophils # (1.3-7.7) k/uL Lymphocytes # (1.0-4.8) k/uL PT (9.0-12.0) sec INR (<1.2) APTT (22.0-30.0) sec Sodium (137-145) mmol/L Potassium (3.5-5.1) mmol/L Carbon Dioxide (22-30) mmol/L BUN (9-20) mg/dL Creatinine (0.66-1.25) mg/dL Glucose (74-99) mg/dL Phosphorus (2.5-4.5) mg/dL Magnesium (1.6-2.3) mg/dL Albumin (3.5-5.0) g/dL Urine Protein 1+ H (Negative) Urine Bacteria Rare H (None) /hpf Urine Mucus Rare H (None) /hpf Crossmatch See Detail Assessment and Plan Plan: 1. Acute renal failure with acute tubular necrosis, unclear etiology possible obstructive uropathy. Kidney/bladder ultrasound ordered, may need urology consult, nephrology on consult, will need urgent dialysis, continue sodium bicarb infusion, with straight cath had 600 ml's of urine output, will place Gilmore catheter for strict I&O's 2. Acute blood loss anemia secondary to GI bleed. Hemoccult ordered, Xarelto on hold, 1 unit packed red blood cells ordered. Will repeat CBC 3. A. fib with RVR status post recent ablation. Continue flecainide 100 mg in the afternoon, 150 mg morning and night, continue Lopressor 50 mg twice a day, Cardizem 180mg daily,cardiology on consult. 4. Hypertension. Continue Cardizem 180 mg daily, hydralazine 100 mg 3 times a day, metoprolol 50 mg twice a day, and valsartan 320 mg daily. 5. Hyperlipidemia. Continue atorvastatin 40 mg daily. 6. GERD. Continue famotidine 20 mg twice a day. 7. Obstructive sleep apnea. Continue to use the CPAP machine. 8. Bariatric surgery status post lap band removal, gastric sleeve. 9. Hyperkalemia. Secondary to acute renal failure and MARI, MARI on hold. 10. GI prophylaxis. Will continue famotidine 20 mg twice daily. 11. DVT prophylaxis. Anticoagulation contraindicated due to GI bleed, SCDs The above impression and plan of care have been discussed and directed by signing physician. Johanny Carpenter nurse practitioner acting as scribe for signing physician.
[2020-04-19] MEDS: MULTIVITAMINS, THERA 1 EACH TAB PO SCH (10:54)
[2020-04-19] MEDS: DILTIAZEM CD 180 MG CAP.ER.24H PO SCH (10:54)
[2020-04-19] MEDS: FERROUS SULFATE 325 MG TAB PO SCH (10:54)
[2020-04-19] MEDS: FAMOTIDINE 20 MG TAB PO SCH ×2 (10:54→21:39)
[2020-04-19] MEDS ORDERED: FUROSEMIDE 80 MG TAB PO SCH (11:00)
[2020-04-19] MEDS ORDERED: SPIRONOLACTONE 25 MG TAB PO SCH (11:00)
[2020-04-19] MEDS ORDERED: FUROSEMIDE 20 MG TAB PO SCH ×3 (11:00→21:00)
[2020-04-19] MEDS ORDERED: CITALOPRAM HYDROBROMIDE 20 MG TAB PO SCH (11:00)
[2020-04-19] MEDS ORDERED: VALSARTAN 160 MG TAB PO SCH (11:00)
[2020-04-19] MEDS: FLECAINIDE 50 MG TAB PO SCH ×2 (12:39→21:39)
--- NOTE | 2020-04-19 12:39 | US ---
EXAMINATION TYPE: US kidneys/renal and bladder DATE OF EXAM: 04/19/2020 COMPARISON: NONE CLINICAL HISTORY: ARF. Acute renal failure EXAM MEASUREMENTS: Right Kidney: 12.0 x 6.0 x 5.1 cm Left Kidney: 13.9 x 6.3 x 5.21 cm Post Void Residual Volume: mL Gross morbid obesity. Patient unable to move for examiner. Technically difficult and limited study. Right Kidney: Inferior pole obscured by bowel gas Left Kidney: probable mild hydro, within the renal pelvis there is a focus is showing increased throu gh transmission and is hypoechoic Bladder: not seen Cortical medullary differentiation is maintained in the visualized portions of the kidneys. There is no ascites. IMPRESSION: Exam is technically limited. Findings in the left renal pelvis may represent parapelvic cyst.
[2020-04-19 14:58] LABS: HCT 25.4 % (39.0-53.0); Hypochromasia Moderate; MCH 27.8 pg (25.0-35.0); MCHC 31.7 g/dL (31.0-37.0); MCV 87.7 fL (80.0-100.0); Mean Platelet Volume 7.1; Platelet Count 331 k/uL (150-450); RDW 14.3 % (11.5-15.5); WBC 11.9 k/uL (3.8-10.6)
[2020-04-19 15:27] LABS: Calcium 8.8 mg/dL (8.4-10.2)
[2020-04-19] MEDS: hydrALAZINE HCL 25 MG TAB PO SCH ×2 (15:36→21:39)
--- NOTE | 2020-04-19 15:42 | P.CRDCN ---
History of Present Illness Consult date: 04/19/20 Chief complaint: Falls, weakness, confusion and decreased urine output History of present illness: This is a 60-year-old gentleman who follows with Dr. Christopher in the office, he has a past medical history of atrial fibrillation and was just recently in the hospital on the 16 of this month, underwent pulmonary vein isolation with transseptal EPS study and ablation procedure by Dr. Myers. History also of hypertension, hyperlipidemia, GERD, rheumatoid arthritis and sleep apnea. Patient was discharged home from the procedure on the , overall was doing quite well. While the patient was at home he was experiencing frequent falls, significant weakness and confusion and gradually his urine output was decreasing to the point where he had no urine output. He presented to the emergency room for this reason, the CT of the brain showed cerebral atrophy with no intracranial abnormality. Chest x-ray showed cardiomegaly with no active cardiopulmonary disease. Lab data was reviewed. White blood cell count 14.7, hemoglobin 7.8, platelet count 354. Sodium 133, potassium 5.7, BUN 133, creatinine 8.3. Troponin 0.023. Repeat labs, white blood cell count 11.9, hemoglobin 8.0, platelet count 331. Patient's creatinine on the 16 of this month when he had his procedure was 2.2. And the creatinine was 63. Patient was found to be in acute renal failure, he was started on a bicarb drip and nephrology consultation was requested. Patient was advised to undergo urgent dialysis, Gilmore catheter was placed. Ultrasound of the kidney and bladder was was ordered, patient may also need a urology consult patient. The patient's xarelto is currently on hold, hemoglobins will be monitored closely patient may require a blood transfusion. We have been requested to see the patient because of his recent ablation procedure. Chest x-ray showed cardiomegaly with no active cardiopulmonary disease. CAT scan of the brain showed cerebral atrophy with no intracranial abnormality. EKG shows a sinus bradycardia with a heart rate in the 50s. Patient's discharge medications after his ablation procedure included flecainide 100 mg daily, lisinopril 40 mg daily, metoprolol 50 mg at at bedtime, multivitamin daily, pravastatin, ranitidine, Aldactone 25 mg twice a day, Celexa 40 mg daily, Lasix 80 mg daily, metoprolol 100 mg in the morning, Xarelto 20 mg daily, clonidine 0.1 3 times a day, and hydralazine 100 mg 3 times a day. At the time of my examination, patient feels extremely tired and fatigued, no other complaints, he has a Gilmore catheter in place and is putting out urine. His blood pressure on arrival here 82/30, heart rate in the 50s, patient was hypotensive for most of the day yesterday, today the blood pressure 130/60 with a heart rate in the 60s. Past Medical History Past Medical History: Atrial Fibrillation, Heart Failure, GERD/Reflux, Hyperlipidemia, Hypertension, Myocardial Infarction ([place]), Rheumatoid Arthritis (RA), Sleep Apnea/CPAP/BIPAP Additional Past Medical History / Comment(s): See Dr Myers's H&P,uses C PAP MACHINE,freq falls-uses cane,dimitri cellulitis Last Myocardial Infarction Date:: 07-04-2012 History of Any Multi-Drug Resistant Organisms: MRSA Date of last positivie culture/infection: 04-05-15 MDRO Source:: left knee Past Surgical History: Bariatric Surgery, Heart Catheterization, Joint Replacement Additional Past Surgical History / Comment(s): Lap band,lapband removed,gastric sleeve, neck x 2, left ankle, left elbow. TOTAL BILATERAL KNEES, ablation 03/2020 Past Anesthesia/Blood Transfusion Reactions: No Reported Reaction Additional Past Anesthesia/Blood Transfusion Reaction / Comment(s): no hx blood transfusion Past Psychological History: Depression Smoking Status: Never smoker Past Alcohol Use History: None Reported Past Drug Use History: None Reported - Past Family History Sister(s) Family Medical History: Cancer Additional Family Medical History / Comment(s): sister #1: breast cancer. sister #2: bronchial tube cancer ( in her 50's from this cancer) Father Family Medical History: Cancer, Congestive Heart Failure (CHF), Coronary Artery Disease (CAD), Hypertension Additional Family Medical History / Comment(s): Leukemia, at age 62 Mother Additional Family Medical History / Comment(s): at age 60 from anuerysm on the brain stem Medications and Allergies Home Medications Medication Instructions Recorded Confirmed Type Metoprolol Tartrate [Lopressor] 50 mg PO BID 01/22/15 04/19/20 History Multivitamins, Thera [Multivitamin 1 tab PO DAILY 01/22/15 04/19/20 History (formulary)] Nitroglycerin Sl Tabs [Nitrostat] 0.4 mg SUBLINGUAL Q5M PRN 01/22/15 04/19/20 History Ranitidine HCl 150 mg PO BID 01/22/15 04/19/20 History Citalopram Hydrobromide [CeleXA] 40 mg PO DAILY 07/03/17 04/19/20 History Furosemide [Lasix] 80 mg PO DAILY 07/03/17 04/19/20 History Rivaroxaban [Xarelto] 20 mg PO HS 05/04/19 04/19/20 History hydrALAZINE HCL [Apresoline] 100 mg PO TID 05/04/19 04/19/20 History Albuterol Inhaler [Ventolin Hfa 2 puff INHALATION RT-Q4H PRN 04/19/20 04/19/20 History Inhaler] Diltiazem HCl [Diltiazem HCl 24Hr 180 mg PO DAILY 04/19/20 04/19/20 History ER] Ferrous Sulfate [Feosol] 325 mg PO DAILY 04/19/20 04/19/20 History Flecainide Acetate 100 mg PO DAILY@1200 04/19/20 04/19/20 History Flecainide Acetate [Tambocor] 150 mg PO BID 04/19/20 04/19/20 History Furosemide [Lasix] 20 mg PO BID 04/19/20 04/19/20 History Rosuvastatin [Crestor] 20 mg PO DAILY 04/19/20 04/19/20 History Spironolactone [Aldactone] 50 mg PO DAILY 04/19/20 04/19/20 History Valsartan [Diovan] 320 mg PO DAILY 04/19/20 04/19/20 History Allergies Allergy/AdvReac Type Severity Reaction Status Date / Time coconut Allergy Rash/Hives Verified 04/19/20 07:24 latex Allergy Rash/Hives Verified 04/19/20 07:24 STERI STRIPS Allergy RASH,SKIN Uncoded 04/19/20 07:24 INFECTION Physical Exam Vitals: Vital Signs Temp Pulse Pulse Resp BP BP Pulse Ox 04/19/20 13:14 97.0 F L 67 18 131/67 04/19/20 11:20 96.9 F L 65 18 110/74 97 04/19/20 10:07 98.5 F 63 18 131/59 97 04/19/20 09:36 98.7 F 62 18 103/62 96 04/19/20 09:27 97.4 F L 61 18 124/59 04/19/20 09:26 97.1 F L 62 18 125/59 97 04/19/20 06:45 104/87 04/19/20 06:30 120/88 04/19/20 06:15 121/77 04/19/20 04:30 16 114/96 97 04/19/20 04:00 17 96/49 97 04/19/20 03:30 50 L 73/54 97 04/19/20 03:00 99/49 98 04/19/20 02:30 54 L 92/39 97 04/19/20 02:00 98.0 F 52 L 17 81/37 98 04/19/20 01:30 63 17 94/46 98 04/19/20 01:00 52 L 18 92/44 98 04/19/20 00:30 53 L 20 89/41 98 04/19/20 00:00 53 L 17 81/41 98 04/18/20 23:30 88/43 97 04/18/20 23:29 88/43 97 04/18/20 22:44 98.4 F 58 L 20 82/38 96 Intake and Output 04/19/20 04/19/20 04/19/20 06:59 14:59 22:59 Intake Total 310 Output Total 825 Balance -515 Intake: Blood Product 310 Rc Pheresis 2 As3 Unit 310 [id number] Output: Urine 825 Other: Voiding Method Indwelling Catheter Weight 158.757 kg PHYSICAL EXAMINATION: GENERAL: 60-year-old gentleman in no acute distress at the time of my examination HEENT: Head is atraumatic, normocephalic. Pupils equal, round. Sclera anicteric. Conjunctiva are clear. Mucous membranes of the mouth are moist. Neck is supple. There is no elevated jugular venous pressure. No carotid bruit is heard. HEART EXAMINATION: Heart S1, S2 normal. No murmur or gallop heard. CHEST EXAMINATION: Lungs reveal diminished air entry to the bases bilaterally. ABDOMEN: Soft, obese, nontender. Bowel sounds are heard. No organomegaly noted. EXTREMITIES: 2+ peripheral pulses with trace evidence of peripheral edema and no calf tenderness noted. NEUROLOGIC patient is awake, alert and oriented 3 . . Results 04/19/20 14:43 04/18/20 23:16 Cardiac Enzymes 04/18/20 04/18/20 Range/Units 23:16 23:16 AST 27 (17-59) U/L Troponin I 0.023 (0.000-0.034) ng/mL Coagulation 04/18/20 Range/Units 23:16 PT 14.1 H (9.0-12.0) sec APTT 56.0 H (22.0-30.0) sec CBC 04/18/20 04/19/20 Range/Units 23:16 14:43 WBC 14.7 H 11.9 H (3.8-10.6) k/uL RBC 2.89 L 2.90 L (4.30-5.90) m/uL Hgb 7.8 L D 8.0 L (13.0-17.5) gm/dL Hct 25.0 L 25.4 L (39.0-53.0) % Plt Count 354 331 (150-450) k/uL Comprehensive Metabolic Panel 04/18/20 Range/Units 23:16 Sodium 133 L (137-145) mmol/L Potassium 5.7 H (3.5-5.1) mmol/L Chloride 101 (98-107) mmol/L Carbon Dioxide 15 L (22-30) mmol/L BUN 133 H* (9-20) mg/dL Creatinine 8.37 H* (0.66-1.25) mg/dL Glucose 116 H (74-99) mg/dL Calcium 8.4 (8.4-10.2) mg/dL AST 27 (17-59) U/L ALT 19 (4-49) U/L Alkaline Phosphatase 107 (38-126) U/L Total Protein 6.3 (6.3-8.2) g/dL Albumin 3.4 L (3.5-5.0) g/dL Current Medications Generic Name Dose Route Start Last Admin Trade Name Freq PRN Reason Stop Dose Admin Albuterol Sulfate 2.5 mg 04/19/20 09:44 Ventolin Nebulized INHALATION RT-Q4H PRN Shortness Of Breath Atorvastatin Calcium 40 mg 04/20/20 09:00 Lipitor PO DAILY [facility] Diltiazem HCl 180 mg 04/19/20 11:00 04/19/20 10:54 Cardizem Cd PO 180 mg DAILY [facility] Administration Famotidine 20 mg 04/19/20 11:00 04/19/20 10:54 Pepcid PO 20 mg BID [facility] Administration Ferrous Sulfate 325 mg 04/19/20 11:00 04/19/20 10:54 Feosol PO 325 mg DAILY [facility] Administration Flecainide Acetate 100 mg 04/19/20 12:00 04/19/20 12:39 Tambocor PO 100 mg DAILY@1200 [facility] Administration Flecainide Acetate 150 mg 04/19/20 21:00 Tambocor PO BID [facility] Hydralazine HCl 25 mg 04/19/20 16:00 Apresoline PO TID [facility] Sodium Bicarbonate 150 ml/ 1,150 mls @ 80 mls/hr 04/19/20 00:45 04/19/20 15:17 Dextrose/Water IV Not Given .[id number] [facility] Metoprolol Tartrate 50 mg 04/19/20 21:00 Lopressor PO BID [facility] Multivitamins 1 each 04/19/20 11:00 04/19/20 10:54 Theragran PO 1 each DAILY [facility] Administration Nitroglycerin 0.4 mg 04/19/20 09:44 Nitrostat SUBLINGUAL Q5M PRN Chest Pain Intake and Output 04/19/20 04/19/20 04/19/20 06:59 14:59 22:59 Intake Total 310 Output Total 825 Balance -515 Intake: Blood Product 310 Rc Pheresis 2 As3 Unit 310 [id number] Output: Urine 825 Other: Voiding Method Indwelling Catheter Weight 158.757 kg 04/19/20 14:43 04/18/20 23:16 EKG Interpretations (text) EKG shows a sinus bradycardia Assessment and Plan Plan: Assessment and plan #1 acute renal failure #2 anemia, Xarelto currently on hold, patient will receive one unit of packed red blood cells #3 atrial fibrillation, paroxysmal, recent ablation earlier this month #4 hypertension #5 hyperlipidemia #6 GERD #7 obstructive sleep apnea #8 obesity with bariatric surgery, status post lap band removal, gastric sleeve Plan Xarelto has been placed on hold by primary care doctor, patient will receive a unit of packed red blood cell. Patient will also be seen in consultation by nephrology. Flecainide has been continued as has the Lipitor, Cardizem, metoprolol, patient continues to be receiving sodium bicarb and IV fluids. Diuretics, Aldactone and valsartan currently on hold. Further recommendations to follow. DNP note has been reviewed, I agree with a documented findings and plan of care. Patient was seen and examined.
[2020-04-19] MEDS ORDERED: hydrALAZINE HCL 50 MG TAB PO SCH (16:00)
--- NOTE | 2020-04-19 18:04 | CONS ---
CONSULTATION REASON FOR CONSULT: Renal failure. HISTORY OF PRESENT ILLNESS: Patient is a 60-year-old male who was admitted to the hospital with complaints of weakness. Patient denied any fever or chills. Patient stated he had been falling frequently at home and stated that he had much decreased urine output over the last 4-5 days prior to admission. The patient denies any prior history of kidney diseases. On initial Gilmore catheter placement, patient had 600 mL of urine obtained. Patient's serum creatinine was 8.3, potassium was 5.7, BUN 133. Previous labs show serum creatinine 2.2 on 04/05/2020. The patient was taking nonsteroidal anti-inflammatory agents at home. He was also on Diovan and Lasix. His blood pressure has been on the lower side. We have a systolic of 73 mmHg early this morning. Patient has received IV fluid boluses as well. PAST MEDICAL HISTORY: Hypertension, CHF, gastroesophageal reflux disease, hyperlipidemia, history of atrial fibrillation, status post recent cardiac ablation on 04/05/2020, history of rheumatoid arthritis. PAST SURGICAL HISTORY: Bariatric surgery, cardiac catheterization, gastric sleeve and lap band procedures previously, knee arthroplasty, cardiac ablation. SOCIAL HISTORY: Negative for smoking, drug abuse or alcohol abuse. MEDICATIONS: Medications at home prior to admission were Lopressor, multivitamins, Celexa, Lasix, Xarelto, hydralazine, diltiazem, iron, Tambocor, Lasix, Crestor, Aldactone, Diovan, flecainide. ALLERGIES: ALLERGIES include COCONUT, LATEX, STERI-STRIPS, which cause rash. REVIEW OF SYSTEMS: As per HPI. Other systems negative. PHYSICAL EXAMINATION: Patient is comfortable, awake. He is not in any acute distress. He states he is feeling better. Blood pressure 131/59, heart rate 63 per minute. He is afebrile. EXAMINATION OF THE HEART: S1 and S2. EXAMINATION OF LUNGS: Bilateral breath sounds are heard. ABDOMEN: Soft, non-tender. Examination of lower extremities shows no significant edema. CATTLE RANCHER exam is grossly intact. LABS: Labs show sodium 133, potassium 5.7, chloride 101. CO2 is 15, BUN 133, serum creatinine 8.37, phosphorus 7.4, magnesium 3.2. UA shows 1+ protein, no significant cells or blood noted. Hemoglobin was 7.8 g/dL. Previous hemoglobin 9.4 on 04/05/2020. Previous creatinine 2.2 on 04/05/2020 and 1.0 in April of 2019. ASSESSMENT: 1. Acute kidney injury secondary to hypotension and hypoperfusion as well as obstructive uropathy, currently with indwelling Gilmore catheter. Serum creatinine is 8.3 and previous reading was 2.2 on 04/05/2020 as well as 1.4 on 01/08/2020. Currently patient has good urine output. I will continue with the Gilmore catheter. Maintain IV fluids. I will hold off on angiotensin receptor blockers and decrease blood pressure medications, as blood pressure has been significantly low with systolic in the 70s early this morning. 2. Anion gap metabolic acidosis secondary to renal failure, maintained on bicarb drip. 3. Hyperkalemia associated with acute kidney injury, use of angiotensin receptor blockers in the setting of hypotension and acidosis, status post Lasix. Hold off on the Diovan as well as Aldactone for now. 4. Hypotension. Hold blood pressure medications. Decrease hydralazine. 5. Recent cardiac ablation on 04/05/2020. 6. Anemia. No active GI bleed noted. Check iron studies. Check stool for occult blood. The patient is maintained on anticoagulation for atrial fibrillation. 7. Atrial fibrillation, maintained on anticoagulation, status post cardiac ablation on 04/05/2020. PLAN: Continue bicarb drip. Discontinue Diovan. Continue off of Aldactone. Repeat labs this morning. Continue with Gilmore catheter. The patient does not need acute renal replacement therapy unless the hyperkalemia persists or renal function continues to worsen. Thank you for this consultation. Will continue to follow the patient with you during his hospitalization. MMODL / IJN: [id number] /
[2020-04-19] MEDS: METOPROLOL TARTRATE 50 MG TAB PO SCH (21:39)
[2020-04-20] MEDS: DEXTROSE 5% IN WATER 1,000 ML with SODIUM BICARB (1 MEQ/ML) 150 ML IV SCH ×2 (00:56→18:31)
[2020-04-20 01:20] LABS: % Iron Saturation 5.05 (15.00-50.00)
[2020-04-20 07:12] LABS: Basophils % (A) 0 %; Eosinophils % (A) 0 %; HCT 27.3 % (39.0-53.0); HGB 8.5 gm/dL (13.0-17.5); Hypochromasia Slight; Lymphocytes # (A) 0.5 k/uL (1.0-4.8); Lymphocytes % (A) 3 %; MCH 26.5 pg (25.0-35.0); MCV 85.7 fL (80.0-100.0); Mean Platelet Volume 6.6; Monocytes # (A) 1.1 k/uL (0-1.0); Monocytes % (A) 6 %; Neutrophils # (A) 15.5 k/uL (1.3-7.7); Neutrophils % (A) 89 %; Platelet Count 348 k/uL (150-450); RBC 3.19 m/uL (4.30-5.90); RDW 14.1 % (11.5-15.5); WBC 17.4 k/uL (3.8-10.6)
[2020-04-20 07:20] LABS: Albumin 3.4 g/dL (3.5-5.0); Calcium 8.5 mg/dL (8.4-10.2); Potassium 5.3 mmol/L (3.5-5.1); Total Bilirubin 0.3 mg/dL (0.2-1.3); Total Protein 6.3 g/dL (6.3-8.2)
[2020-04-20] MEDS: ATORVASTATIN 40 MG TAB PO SCH (08:31)
[2020-04-20] MEDS: FAMOTIDINE 20 MG TAB PO SCH (08:31)
[2020-04-20] MEDS: hydrALAZINE HCL 25 MG TAB PO SCH ×3 (08:32→20:13)
[2020-04-20] MEDS: DILTIAZEM CD 180 MG CAP.ER.24H PO SCH (08:32)
[2020-04-20] MEDS: MULTIVITAMINS, THERA 1 EACH TAB PO SCH (08:33)
[2020-04-20] MEDS: FERROUS SULFATE 325 MG TAB PO SCH (08:33)
[2020-04-20] MEDS: METOPROLOL TARTRATE 50 MG TAB PO SCH ×2 (08:33→20:13)
[2020-04-20] MEDS: FLECAINIDE 50 MG TAB PO SCH ×3 (08:33→20:14)
[2020-04-20 11:07] VITALS: BMI 55.9
--- NOTE | 2020-04-20 11:12 | P.PN ---
Subjective This is a 60-year-old male, patient of Dr. Harrington, with a past medical history of atrial fibrillation, congestive heart failure, GERD, hyperlipidemia, hypertension, previous myocardial infarction, rheumatoid arthritis, and obstructive sleep apnea. Patient was recently seen by Dr. Myers for persistent atrial fibrillation status post A. fib ablation on 04/05/2020, did well after the procedure and was sent home. Patient reports he was at home when he was experiencing frequent falls, generalized weakness, confusion, and in no urine output for the last 7-10 days. Patient then presented to the emergency department, CT brain showed cerebral atrophy, no intracranial abnormality. Chest x-ray showed cardiomegaly, with no active cardiopulmonary disease. Labs were obtained and showed BUN 133, creatinine 8.37, recent kidney function from 04/05/20 showed creatinine of 2.23, BUN is 63. He was found to be in acute renal failure. He was started on a bicarb drip, nephrology was consulted, will likely need urgent dialysis. Straight cath was performed and 600 mL's of urine was obtained. Will have Gilmore catheter placed for strict I&O's. Will obtain ultrasound of the kidney bladder to check for obstructive uropathy, may need consult with urology. Currently acute renal failure of unknown etiology. Hemoglobin was also low on the lower side at 9.4, repeat hemoglobin this morning noted to drop to 7.8, 1 unit packed red blood cells was ordered. Patient's Xarelto is on hold, will obtain occult blood for possible GI bleed. Cardiology consulted for recent A. fib with ablation. Vital signs are currenlty stable, he is afebrile 98.5, 97% on 2 L, blood pressure 131/59. 7/1: Patient evaluated this morning, states he is feeling better. No dialysis yesterday and is currently on hold, creatinine did improve from 8.37 to 4.03 today, BUN 100, Potassium is also down 5.3, Na 137. Hemoglobin up to 8.5 after 1 unit packed red blood cells yesterday, Xarelto is currently still on hold. Nephrology is on consult believes acute kidney injury is secondary hypotension and hypoperfusion, apparently he was also taking NSAIDs at home. Medications were adjusted, hydralazine decreased to 25 mg 3 times a day, valsartan discontinued.. He continues on bicarb drip for his metabolic acidosis. Cardiology is on consult for his recent ablation for his atrial fibrillation. Abdominal ultrasound technically limited study, showed left renal pelvis may represent parapelvic cysts, otherwise unremarkable. Good urine output noted from a Gilmore catheter. Vital signs are stable, afebrile 98.1, heart rate 64, blood pressure 123/60, 86% on 2 L nasal cannula. Objective - Vital Signs Vital signs: Vital Signs Temp 98.1 F 04/20/20 08:00 Pulse 64 04/20/20 08:00 Resp 18 04/20/20 08:00 BP 123/60 04/20/20 08:00 Pulse Ox 96 04/20/20 08:00 Intake & Output 04/19/20 04/20/20 04/20/20 18:59 06:59 18:59 Intake Total 620 240 Output Total 1750 2325 800 Balance -1130 -2325 -560 Weight 187 kg Intake: Oral 240 Blood Product 620 Rc As-3 Unit 310 [id number] Rc Pheresis 2 As3 Unit 310 [id number] Output: Urine 1750 2325 800 Uretheral (Gilmore) 925 550 Other: Voiding Method Indwelling Catheter Indwelling Catheter Indwelling Catheter - Exam - Constitutional General appearance: cooperative, mild distress, morbidly obese - EENT Eyes: EOMI, PERRLA, normal appearance ENT: hearing grossly normal, normal oropharynx, no thrush - Neck Neck: no lymphadenopathy, normal ROM, no stridor, no thyromegaly - Respiratory Respiratory: bilateral: diminished, negative: rhonchi, wheezing, prolonged expiration, prolonged inspiration - Cardiovascular Rhythm: regular Heart sounds: normal: S1, S2 - Gastrointestinal General gastrointestinal: no organomegaly, soft, no tenderness - Neurologic Neurologic: CNII-XII intact - Musculoskeletal Musculoskeletal: generalized weakness, strength equal bilaterally - Psychiatric Psychiatric: A&O x's 3 - Labs CBC & Chem 7: 04/20/20 06:16 04/20/20 06:16 Labs: Abnormal Lab Results - Last 24 Hours (Table) 04/19/20 04/19/20 04/19/20 Range/Units 04:35 14:43 14:43 WBC 11.9 H (3.8-10.6) k/uL RBC 2.90 L (4.30-5.90) m/uL Hgb 8.0 L (13.0-17.5) gm/dL Hct 25.4 L (39.0-53.0) % Neutrophils # (1.3-7.7) k/uL Lymphocytes # (1.0-4.8) k/uL Monocytes # (0-1.0) k/uL Sodium 134 L (137-145) mmol/L Potassium 6.0 H (3.5-5.1) mmol/L Carbon Dioxide 18 L (22-30) mmol/L BUN 120 H* (9-20) mg/dL Creatinine 6.18 H (0.66-1.25) mg/dL Glucose 217 H (74-99) mg/dL Iron 15 L (65-175) ug/dL % Saturation 5.05 L (15.00-50.00) Albumin (3.5-5.0) g/dL Crossmatch See Detail 04/20/20 04/20/20 Range/Units 06:16 06:16 WBC 17.4 H (3.8-10.6) k/uL RBC 3.19 L (4.30-5.90) m/uL Hgb 8.5 L (13.0-17.5) gm/dL Hct 27.3 L (39.0-53.0) % Neutrophils # 15.5 H (1.3-7.7) k/uL Lymphocytes # 0.5 L (1.0-4.8) k/uL Monocytes # 1.1 H (0-1.0) k/uL Sodium (137-145) mmol/L Potassium 5.3 H (3.5-5.1) mmol/L Carbon Dioxide (22-30) mmol/L BUN 100 H (9-20) mg/dL Creatinine 4.03 H (0.66-1.25) mg/dL Glucose 137 H (74-99) mg/dL Iron (65-175) ug/dL % Saturation (15.00-50.00) Albumin 3.4 L (3.5-5.0) g/dL Crossmatch Assessment and Plan Plan: 1. Acute renal failure with acute tubular necrosis, secondary to hypotension and hypoperfusion and obstructive uropathy. Kidney/bladder ultrasound completed, nephrology on consult, dialysis on hold, kidney function is improving, continue sodium bicarb infusion, MARI is on hold, blood pressure medications were decreased. 2. Acute blood loss anemia secondary to GI bleed. Hemoccult ordered, Xarelto on hold, 1 unit packed red blood cells ordered. Will repeat CBC 3. A. fib with RVR status post recent ablation. Continue flecainide 100 mg in the afternoon, 150 mg morning and night, continue Lopressor 50 mg twice a day, Cardizem 180mg daily,cardiology on consult. 4. Hypertension. Continue Cardizem 180 mg daily, hydralazine 25 mg 3 times a day, metoprolol 50 mg twice a day. 5. Hyperlipidemia. Continue atorvastatin 40 mg daily. 6. GERD. Continue famotidine 20 mg daily 7. Obstructive sleep apnea. Continue to use the CPAP machine. 8. Bariatric surgery status post lap band removal, gastric sleeve. 9. Hyperkalemia. Secondary to acute renal failure and MARI. MARI on hold. impro ving 10. GI prophylaxis. Will continue famotidine 20 mg daily. 11. DVT prophylaxis. Anticoagulation contraindicated due to GI bleed, SCDs 12. Anion gap metabolic acidosis secondary to renal failure. Continue bicarbonate drip. The above impression and plan of care have been discussed and directed by signing physician. Johanny Carpenter nurse practitioner acting as scribe for signing physician.
--- NOTE | 2020-04-20 11:33 | P.PN ---
Subjective Progress Note Date: 04/20/20 This is a 60-year-old gentleman who follows with Dr. Christopher in the office, he has a past medical history of atrial fibrillation and was just recently in the hospital on the 16 of this month, underwent pulmonary vein isolation with transseptal EPS study and ablation procedure by Dr. Myers. His tory also of hypertension, hyperlipidemia, GERD, rheumatoid arthritis and sleep apnea. Patient was discharged home from the procedure on the , overall was doing quite well. While the patient was at home he was experiencing frequent falls, significant weakness and confusion and gradually his urine output was decreasing to the point where he had no urine output. He presented to the emergency room for this reason, the CT of the brain showed cerebral atrophy with no intracranial abnormality. Chest x-ray showed cardiomegaly with no active cardiopulmonary disease. Lab data was reviewed. White blood cell count 14.7, hemoglobin 7.8, platelet count 354. Sodium 133, potassium 5.7, BUN 133, creatinine 8.3. Troponin 0.023. Repeat labs, white blood cell count 11.9, hemoglobin 8.0, platelet count 331. Patient's creatinine on the 16 of this month when he had his procedure was 2.2. And the creatinine was 63. Patient was found to be in acute renal failure, he was started on a bicarb drip and nephrology consultation was requested. Patient was advised to undergo urgent dialysis, Gilmore catheter was placed. Ultrasound of the kidney and bladder was was ordered, patient may also need a urology consult patient. The patient's xarelto is currently on hold, hemoglobins will be monitored closely patient may require a blood transfusion. We have been requested to see the patient because of his recent ablation procedure. Chest x-ray showed cardiomegaly with no active cardiopulmonary disease. CAT scan of the brain showed cerebral atrophy with no intracranial abnormality. EKG shows a sinus bradycardia with a heart rate in the 50s. Patient's discharge medications after his ablation procedure included flecainide 100 mg daily, lisinopril 40 mg daily, metoprolol 50 mg at at bedtime, multivitamin daily, pravastatin, ranitidine, Aldactone 25 mg twice a day, Celexa 40 mg daily, Lasix 80 mg daily, metoprolol 100 mg in the morning, Xarelto 20 mg daily, clonidine 0.1 3 times a day, and hydralazine 100 mg 3 times a day. At the time of my examination, patient feels extremely tired and fatigued, no other complaints, he has a Gilmore catheter in place and is putting out urine. His blood pressure on arrival here 82/30, heart rate in the 50s, patient was hypotensive for most of the day yesterday, today the blood pressure 130/60 with a heart rate in the 60s. 04/20/2020 Patient was seen and examined this morning, feeling considerably better overall. He did not undergo dialysis in his creatinine today is 4.03, BUN is 100 and potassium 5.3 today. He is putting out good amounts of urine. Blood pressure 122/60 with a heart rate in the 60s, 96% on room air. Objective - Vital Signs Vital signs: Vital Signs Temp 98.1 F 04/20/20 08:00 Pulse 64 04/20/20 08:00 Resp 18 04/20/20 08:00 BP 123/60 04/20/20 08:00 Pulse Ox 96 04/20/20 08:00 Intake & Output 04/19/20 04/20/20 04/20/20 18:59 06:59 18:59 Intake Total 620 240 Output Total 1750 2325 800 Balance -1130 -2325 -560 Weight 187 kg 187 kg Intake: Oral 240 Blood Product 620 Rc As-3 Unit 310 [id number] Rc Pheresis 2 As3 Unit 310 [id number] Output: Urine 1750 2325 800 Uretheral (Gilmore) 925 550 Other: Voiding Method Indwelling Catheter Indwelling Catheter Indwelling Catheter - Exam PHYSICAL EXAMINATION: GENERAL: 60-year-old gentleman in no acute distress at the time of my examination HEENT: Head is atraumatic, normocephalic. Pupils equal, round. Sclera anicteric. Conjunctiva are clear. Mucous membranes of the mouth are moist. Neck is supple. There is no elevated jugular venous pressure. No carotid bruit is heard. HEART EXAMINATION: Heart S1, S2 normal. No murmur or gallop heard. CHEST EXAMINATION: Lungs reveal diminished air entry to the bases bilaterally. ABDOMEN: Soft, obese, nontender. Bowel sounds are heard. No organomegaly noted. EXTREMITIES: 2+ peripheral pulses with trace evidence of peripheral edema and no calf tenderness noted. NEUROLOGIC patient is awake, alert and oriented 3 . - Labs CBC & Chem 7: 04/20/20 06:16 04/20/20 06:16 Labs: Abnormal Lab Results - Last 24 Hours (Table) 04/19/20 04/19/20 04/19/20 Range/Units 04:35 14:43 14:43 WBC 11.9 H (3.8-10.6) k/uL RBC 2.90 L (4.30-5.90) m/uL Hgb 8.0 L (13.0-17.5) gm/dL Hct 25.4 L (39.0-53.0) % Neutrophils # (1.3-7.7) k/uL Lymphocytes # (1.0-4.8) k/uL Monocytes # (0-1.0) k/uL Sodium 134 L (137-145) mmol/L Potassium 6.0 H (3.5-5.1) mmol/L Carbon Dioxide 18 L (22-30) mmol/L BUN 120 H* (9-20) mg/dL Creatinine 6.18 H (0.66-1.25) mg/dL Glucose 217 H (74-99) mg/dL Iron 15 L (65-175) ug/dL % Saturation 5.05 L (15.00-50.00) Albumin (3.5-5.0) g/dL Crossmatch See Detail 04/20/20 04/20/20 Range/Units 06:16 06:16 WBC 17.4 H (3.8-10.6) k/uL RBC 3.19 L (4.30-5.90) m/uL Hgb 8.5 L (13.0-17.5) gm/dL Hct 27.3 L (39.0-53.0) % Neutrophils # 15.5 H (1.3-7.7) k/uL Lymphocytes # 0.5 L (1.0-4.8) k/uL Monocytes # 1.1 H (0-1.0) k/uL Sodium (137-145) mmol/L Potassium 5.3 H (3.5-5.1) mmol/L Carbon Dioxide (22-30) mmol/L BUN 100 H (9-20) mg/dL Creatinine 4.03 H (0.66-1.25) mg/dL Glucose 137 H (74-99) mg/dL Iron (65-175) ug/dL % Saturation (15.00-50.00) Albumin 3.4 L (3.5-5.0) g/dL Crossmatch Assessment and Plan Plan: Assessment and plan #1 acute renal failure #2 anemia, Xarelto currently on hold, patient will receive one unit of packed red blood cells #3 atrial fibrillation, paroxysmal, recent ablation earlier this month #4 hypertension #5 hyperlipidemia #6 GERD #7 obstructive sleep apnea #8 obesity with bariatric surgery, status post lap band removal, gastric sleeve Plan From cardiology's perspective, we'll continue patient on his current medications. Anticoagulation continues to be on hold because of GI bleed. DNP note has been reviewed, I agree with a documented findings and plan of care. Patient was seen and examined.
--- NOTE | 2020-04-20 13:12 | PN ---
PROGRESS NOTE Patient is seen for followup for acute kidney injury. He was admitted to the hospital with hypotension, hypovolemia and hyperkalemia. The patient's renal function has improved. He also had urine retention and his creatinine is down from 8.3 to 4.0 now. Potassium has improved to 5.3. Patient is comfortable. He states he is feeling better. PHYSICAL EXAMINATION: On examination today, blood pressure is 123/60, heart rate 64 per minute. He is afebrile. Examination of the heart S1, S2. Examination of the lungs, bilateral breath sounds are heard. Abdomen is soft, nontender. Examination of lower extremities shows chronic skin changes. No significant edema is noted. X RAY NURSE exam grossly intact. Labs show sodium 137, potassium 5.3, chloride 103, CO2 is 23. BUN 100, serum creatinine 4.0, hemoglobin 8.5 g/dL. ASSESSMENT: 1. Acute kidney injury, acute tubular necrosis secondary to hypotension hypovolemia as well as urinary retention currently significantly improved. The left kidney showed mild hydronephrosis, possibly on the ultrasound. Continue with the Gilmore catheter for now. Continue with IV fluids. 2. Metabolic acidosis associated with renal failure maintained on bicarb drip. 3. Hyperkalemia associated with acute kidney injury use of angiotensin receptor blockers in the setting of hypotension, acidosis, currently improved. 4. Hypotension. Blood pressure medications have been adjusted. 5. History of recent cardiac ablation for atrial fibrillation on 04/05/2020. 6. Anemia, no active bleeding noted. Stool for occult blood has been ordered. Hemoglobin is staying at about 8-8.5 g/dL. PLAN: Continue with IV fluids. I will continue with the bicarb drip for one more day given the mild hyperkalemia. Maintain patient on low-potassium diet. Continue with the Gilmore catheter and repeat labs in a.m. Blood pressure remains on the lower side. We may need to decrease antihypertensive medications further. MMODL / IJN: [id number] /
[2020-04-21 08:01] LABS: HCT 28.4 % (39.0-53.0); HGB 8.8 gm/dL (13.0-17.5); Hypochromasia Moderate; MCH 27.1 pg (25.0-35.0); MCHC 30.9 g/dL (31.0-37.0); MCV 87.8 fL (80.0-100.0); Mean Platelet Volume 6.3; Platelet Count 373 k/uL (150-450); RBC 3.24 m/uL (4.30-5.90); RDW 13.8 % (11.5-15.5); WBC 12.6 k/uL (3.8-10.6)
[2020-04-21] MEDS: hydrALAZINE HCL 25 MG TAB PO SCH ×3 (08:03→20:54)
[2020-04-21] MEDS: FLECAINIDE 50 MG TAB PO SCH ×3 (08:04→20:54)
[2020-04-21] MEDS: DILTIAZEM CD 180 MG CAP.ER.24H PO SCH (08:04)
[2020-04-21] MEDS: FAMOTIDINE 20 MG TAB PO SCH (08:04)
[2020-04-21] MEDS: ATORVASTATIN 40 MG TAB PO SCH (08:04)
[2020-04-21] MEDS: FERROUS SULFATE 325 MG TAB PO SCH (08:04)
[2020-04-21] MEDS: MULTIVITAMINS, THERA 1 EACH TAB PO SCH (08:04)
[2020-04-21] MEDS: METOPROLOL TARTRATE 50 MG TAB PO SCH ×2 (08:04→20:54)
[2020-04-21 08:18] LABS: Albumin 3.1 g/dL (3.5-5.0); Calcium 8.3 mg/dL (8.4-10.2); Potassium 5.4 mmol/L (3.5-5.1); Total Bilirubin 0.4 mg/dL (0.2-1.3); Total Protein 6.1 g/dL (6.3-8.2)
[2020-04-21] MEDS ORDERED: FUROSEMIDE 10 MG/ML 4 ML VIAL IV STA (09:02)
--- NOTE | 2020-04-21 11:28 | P.PN ---
Subjective This is a 60-year-old male, patient of Dr. Harrington, with a past medical history of atrial fibrillation, congestive heart failure, GERD, hyperlipidemia, hypertension, previous myocardial infarction, rheumatoid arthritis, and obstructive sleep apnea. Patient was recently seen by Dr. Myers for persistent atrial fibrillation status post A. fib ablation on 04/05/2020, did well after the procedure and was sent home. Patient reports he was at home when he was experiencing frequent falls, generalized weakness, confusion, and in no urine output for the last 7-10 days. Patient then presented to the emergency department, CT brain showed cerebral atrophy, no intracranial abnormality. Chest x-ray showed cardiomegaly, with no active cardiopulmonary disease. Labs were obtained and showed BUN 133, creatinine 8.37, recent kidney function from 04/05/20 showed creatinine of 2.23, BUN is 63. He was found to be in acute renal failure. He was started on a bicarb drip, nephrology was consulted, will likely need urgent dialysis. Straight cath was performed and 600 mL's of urine was obtained. Will have Guzman catheter placed for strict I&O's. Will obtain ultrasound of the kidney bladder to check for obstructive uropathy, may need consult with urology. Currently acute renal failure of unknown etiology. Hemoglobin was also low on the lower side at 9.4, repeat hemoglobin this morning noted to drop to 7.8, 1 unit packed red blood cells was ordered. Patient's Xarelto is on hold, will obtain occult blood for possible GI bleed. Cardiology consulted for recent A. fib with ablation. Vital signs are currenlty stable, he is afebrile 98.5, 97% on 2 L, blood pressure 131/59. 7/1: Patient evaluated this morning, states he is feeling better. No dialysis yesterday and is currently on hold, creatinine did improve from 8.37 to 4.03 today, BUN 100, Potassium is also down 5.3, Na 137. Hemoglobin up to 8.5 after 1 unit packed red blood cells yesterday, Xarelto is currently still on hold. Nephrology is on consult believes acute kidney injury is secondary hypotension and hypoperfusion, apparently he was also taking NSAIDs at home. Medications were adjusted, hydralazine decreased to 25 mg 3 times a day, valsartan discontinued.. He continues on bicarb drip for his metabolic acidosis. Cardiology is on consult for his recent ablation for his atrial fibrillation. Abdominal ultrasound technically limited study, showed left renal pelvis may represent parapelvic cysts, otherwise unremarkable. Good urine output noted from a Guzman catheter. Vital signs are stable, afebrile 98.1, heart rate 64, blood pressure 123/60, 86% on 2 L nasal cannula. 04/21: Patients kidney function continues to improve. Creatinine is 2.41. BUN 76. Potassium 5.4, one time dose of Furosemide 40mg IVP ordered, IV fluids were discontinued. Patient has good urine output, guzman catheter still in place, blood noted in urine bag, patient reports he accidentally pulled on the guzman cath. Will monitor at this point, will discontinue guzman caether tomorrow russell chaidez Blood pressure well controlled 132/66, no further episodes of hypotension. Xarelto still on hold, Hgb is slowly improving Hgb 8.8, Hct 28.4, status post 1 unit of PRBC. Will plan on discharge tomorrow. Objective - Vital Signs Vital signs: Vital Signs Temp 97.7 F 04/21/20 07:30 Pulse 63 04/21/20 08:00 Resp 18 04/21/20 08:00 BP 132/66 04/21/20 07:30 Pulse Ox 96 04/21/20 07:30 Intake & Output 04/20/20 04/21/20 04/21/20 18:59 06:59 18:59 Intake Total 960 1420 240 Output Total 1950 1525 Balance -990 -105 240 Weight 187 kg 180.8 kg Intake: Intake, IV Titration 880 Amount Dextrose 5% in Water 1, 880 000 ml @ 80 mls/hr IV . [id number] ANTONELLA with Sodium Bicarb (1 Meq/ml) 150 ml Rx#:[id number] Oral 960 540 240 Output: Urine 1950 1525 Uretheral (Guzman) 650 Other: Voiding Method Indwelling Catheter Indwelling Catheter Indwelling Catheter # Bowel Movements 1 - Exam - Constitutional General appearance: cooperative, mild distress, morbidly obese - EENT Eyes: EOMI, PERRLA, normal appearance ENT: hearing grossly normal, normal oropharynx, no thrush - Neck Neck: no lymphadenopathy, normal ROM, no stridor, no thyromegaly - Respiratory Respiratory: bilateral: diminished, negative: rhonchi, wheezing, prolonged e xpiration, prolonged inspiration - Cardiovascular Rhythm: regular Heart sounds: normal: S1, S2 - Gastrointestinal General gastrointestinal: no organomegaly, soft, no tenderness - Neurologic Neurologic: CNII-XII intact - Musculoskeletal Musculoskeletal: generalized weakness, strength equal bilaterally - Psychiatric Psychiatric: A&O x's 3 - Labs CBC & Chem 7: 04/21/20 07:23 04/21/20 07:23 Labs: Abnormal Lab Results - Last 24 Hours (Table) 04/21/20 04/21/20 Range/Units 07:23 07:23 WBC 12.6 H (3.8-10.6) k/uL RBC 3.24 L (4.30-5.90) m/uL Hgb 8.8 L (13.0-17.5) gm/dL Hct 28.4 L (39.0-53.0) % MCHC 30.9 L (31.0-37.0) g/dL Potassium 5.4 H (3.5-5.1) mmol/L BUN 76 H (9-20) mg/dL Creatinine 2.41 H (0.66-1.25) mg/dL Glucose 112 H (74-99) mg/dL Calcium 8.3 L (8.4-10.2) mg/dL Total Protein 6.1 L (6.3-8.2) g/dL Albumin 3.1 L (3.5-5.0) g/dL Assessment and Plan Plan: 1. Acute renal failure with acute tubular necrosis, secondary to hypotension and hypoperfusion. Kidney/bladder ultrasound completed, nephrology on consult, dialysis on hold, kidney function continues to improve, sodium bicarb discontinued, MARI is on hold, blood pressure medications were decreased. 2. Acute blood loss anemia secondary to GI bleed. Hemoccult ordered, Xarelto on hold, 1 unit packed red blood cells ordered. Will repeat CBC 3. A. fib with RVR status post recent ablation. Continue flecainide 100 mg in the afternoon, 150 mg morning and night, continue Lopressor 50 mg twice a day, Cardizem 180mg daily,cardiology on consult. 4. Hypertension. Continue Cardizem 180 mg daily, hydralazine 25 mg 3 times a day, metoprolol 50 mg twice a day. 5. Hyperlipidemia. Continue atorvastatin 40 mg daily. 6. GERD. Continue famotidine 20 mg daily 7. Obstructive sleep apnea. Continue to use the CPAP machine. 8. Bariatric surgery status post lap band removal, gastric sleeve. 9. Hyperkalemia. Secondary to acute renal failure and MARI. MARI on hold. IV Furosemide given 10. GI prophylaxis. Will continue famotidine 20 mg daily. 11. DVT prophylaxis. Anticoagulation contraindicated due to GI bleed, SCDs 12. Anion gap metabolic acidosis secondary to renal failure. Continue bicarbonate drip. The above impression and plan of care have been discussed and directed by signing physician. Johanny Carpenter nurse practitioner acting as scribe for signing physician.
--- NOTE | 2020-04-21 12:11 | PN ---
PROGRESS NOTE Patient is seen for followup for acute kidney injury. His serum creatinine was 8.37 on initial admission. It is down to 2.4 now. He is currently maintained on IV fluids. The patient was hypotensive on admission. He is currently doing well. Denies any significant complaints. Patient has an indwelling Gilmore catheter. He did have urine retention as well at the time of admission. On examination, blood pressure is 140/69, heart rate 64 per minute. He is afebrile examination of the heart S1, S2. Examination of the lungs, bilateral breath sounds are heard. Decreased breath sounds at bases. Minimal basal crackles are heard. Abdomen is soft, nontender. Examination of lower extremities shows trace edema. Chronic skin changes. RN NURSERY exam grossly intact. Labs show sodium 138, potassium 5.4, chloride 101. CO2 is 30, BUN 76, creatinine 2.41. ASSESSMENT: 1. Acute kidney injury associated with hypotension and urine retention currently with indwelling Gilmore catheter and significant improvement in renal function. 2. Hyperkalemia associated with acute kidney injury use of angiotensin receptor blockers and acidosis at the time of admission, currently improved, although potassium remains elevated. I will main continue to maintain patient on low- potassium diet and I will give him a dose of IV Lasix as there is evidence of mild hypervolemia. This will help with the potassium as well. Continue to hold off on the Aldactone and the angiotensin receptor blockers that patient was taking at home. 3. History of recent cardiac ablation for atrial fibrillation on 04/05/2020. 4. Anemia with no active bleeding noted. Hemoglobin staying about 8.5-8.8 g/dL. There was concern for GI bleed. Stool for occult blood has been ordered. Iron saturation was low at 5%. Patient will be started on IV iron as well. PLAN: Discontinue IV fluids, Lasix 40 mg IV push x1. Start IV iron. Maintain low-potassium diet and patient can likely be discharged tomorrow. He will need to continue to stay off the angiotensin receptor blockers and Aldactone for now. We can resume oral loop diuretics tomorrow. See Urology as outpatient and maintain patient on Flomax. MMODL / IJN: [id number] /
--- NOTE | 2020-04-21 12:14 | P.PN ---
Subjective Progress Note Date: 04/21/20 This is a 60-year-old gentleman who follows with Dr. Christopher in the office, he has a past medical history of atrial fibrillation and was just recently in the hospital on the 16 of this month, underwent pulmonary vein isolation with transseptal EPS study and ablation procedure by Dr. Myers. His tory also of hypertension, hyperlipidemia, GERD, rheumatoid arthritis and sleep apnea. Patient was discharged home from the procedure on the , overall was doing quite well. While the patient was at home he was experiencing frequent falls, significant weakness and confusion and gradually his urine output was decreasing to the point where he had no urine output. He presented to the emergency room for this reason, the CT of the brain showed cerebral atrophy with no intracranial abnormality. Chest x-ray showed cardiomegaly with no active cardiopulmonary disease. Lab data was reviewed. White blood cell count 14.7, hemoglobin 7.8, platelet count 354. Sodium 133, potassium 5.7, BUN 133, creatinine 8.3. Troponin 0.023. Repeat labs, white blood cell count 11.9, hemoglobin 8.0, platelet count 331. Patient's creatinine on the 16 of this month when he had his procedure was 2.2. And the creatinine was 63. Patient was found to be in acute renal failure, he was started on a bicarb drip and nephrology consultation was requested. Patient was advised to undergo urgent dialysis, Gilmore catheter was placed. Ultrasound of the kidney and bladder was was ordered, patient may also need a urology consult patient. The patient's xarelto is currently on hold, hemoglobins will be monitored closely patient may require a blood transfusion. We have been requested to see the patient because of his recent ablation procedure. Chest x-ray showed cardiomegaly with no active cardiopulmonary disease. CAT scan of the brain showed cerebral atrophy with no intracranial abnormality. EKG shows a sinus bradycardia with a heart rate in the 50s. Patient's discharge medications after his ablation procedure included flecainide 100 mg daily, lisinopril 40 mg daily, metoprolol 50 mg at at bedtime, multivitamin daily, pravastatin, ranitidine, Aldactone 25 mg twice a day, Celexa 40 mg daily, Lasix 80 mg daily, metoprolol 100 mg in the morning, Xarelto 20 mg daily, clonidine 0.1 3 times a day, and hydralazine 100 mg 3 times a day. At the time of my examination, patient feels extremely tired and fatigued, no other complaints, he has a Gilmore catheter in place and is putting out urine. His blood pressure on arrival here 82/30, heart rate in the 50s, patient was hypotensive for most of the day yesterday, today the blood pressure 130/60 with a heart rate in the 60s. 04/20/2020 Patient was seen and examined this morning, feeling considerably better overall. He did not undergo dialysis in his creatinine today is 4.03, BUN is 100 and potassium 5.3 today. He is putting out good amounts of urine. Blood pressure 122/60 with a heart rate in the 60s, 96% on room air. 04/21/2020 Patient seen and examined this morning, feels well. Blood pressure 102/56, heart rate in the 50s to 60s, 94% on room air. White blood cell count 12.6, hemoglobin 8.8, platelet count 373. Sodium 138, potassium 5.4, BUN 76, creatinine 2.4. Xarelto continues to be on hold, hemoglobin 8.8. Plan for poss ible discharge home tomorrow. Objective - Vital Signs Vital signs: Vital Signs Temp 98 F 04/21/20 12:00 Pulse 59 L 04/21/20 12:00 Resp 18 04/21/20 12:00 BP 102/56 04/21/20 12:00 Pulse Ox 94 L 04/21/20 12:00 Intake & Output 04/20/20 04/21/20 04/21/20 18:59 06:59 18:59 Intake Total 960 1420 240 Output Total 1950 1525 Balance -990 -105 240 Weight 187 kg 180.8 kg Intake: Intake, IV Titration 880 Amount Dextrose 5% in Water 1, 880 000 ml @ 80 mls/hr IV . [id number] ANTONELLA with Sodium Bicarb (1 Meq/ml) 150 ml Rx#:[id number] Oral 960 540 240 Output: Urine 1950 1525 Uretheral (Gilmore) 650 Other: Voiding Method Indwelling Catheter Indwelling Catheter Indwelling Catheter # Bowel Movements 1 - Exam PHYSICAL EXAMINATION: GENERAL: 60-year-old gentleman in no acute distress at the time of my examination HEENT: Head is atraumatic, normocephalic. Pupils equal, round. Sclera anicteric. Conjunctiva are clear. Mucous membranes of the mouth are moist. Neck is supple. There is no elevated jugular venous pressure. No carotid bruit is heard. HEART EXAMINATION: Heart S1, S2 normal. No murmur or gallop heard. CHEST EXAMINATION: Lungs reveal diminished air entry to the bases bilaterally. ABDOMEN: Soft, obese, nontender. Bowel sounds are heard. No organomegaly noted. EXTREMITIES: 2+ peripheral pulses with trace evidence of peripheral edema and no calf tenderness noted. NEUROLOGIC patient is awake, alert and oriented 3 . - Labs CBC & Chem 7: 04/21/20 07:23 04/21/20 07:23 Labs: Abnormal Lab Results - Last 24 Hours (Table) 04/21/20 04/21/20 Range/Units 07: 07:23 WBC 12.6 H (3.8-10.6) k/uL RBC 3.24 L (4.30-5.90) m/uL Hgb 8.8 L (13.0-17.5) gm/dL Hct 28.4 L (39.0-53.0) % MCHC 30.9 L (31.0-37.0) g/dL Potassium 5.4 H (3.5-5.1) mmol/L BUN 76 H (9-20) mg/dL Creatinine 2.41 H (0.66-1.25) mg/dL Glucose 112 H (74-99) mg/dL Calcium 8.3 L (8.4-10.2) mg/dL Total Protein 6.1 L (6.3-8.2) g/dL Albumin 3.1 L (3.5-5.0) g/dL Assessment and Plan Plan: Assessment and plan #1 acute renal failure #2 anemia, Xarelto currently on hold, patient will receive one unit of packed red blood cells #3 atrial fibrillation, paroxysmal, recent ablation earlier this month #4 hypertension #5 hyperlipidemia #6 GERD #7 obstructive sleep apnea #8 obesity with bariatric surgery, status post lap band removal, gastric sleeve Plan From cardiology's perspective, we'll continue patient on his current medications. Anticoagulation continues to be on hold because of GI bleed. Plan for possible discharge home in 24 hours. DNP note has been reviewed, I agree with a documented findings and plan of care. Patient was seen and examined.
[2020-04-21] MEDS: SODIUM FERRIC GLUCONAT-SUCROSE 125 MG in SODIUM CHLORIDE 0.9% 100 ML IVPB SCH (12:52)
[2020-04-21] MEDS ORDERED: TAMSULOSIN 0.4 MG CAP.ER.24H PO SCH (18:30)
[2020-04-22 06:52] LABS: HCT 29.6 % (39.0-53.0); HGB 9.3 gm/dL (13.0-17.5); Hypochromasia Marked; MCH 27.9 pg (25.0-35.0); MCHC 31.3 g/dL (31.0-37.0); MCV 89.1 fL (80.0-100.0); Mean Platelet Volume 6.3; Platelet Count 347 k/uL (150-450); RBC 3.32 m/uL (4.30-5.90); RDW 13.8 % (11.5-15.5); WBC 13.1 k/uL (3.8-10.6)
[2020-04-22 07:03] LABS: Albumin 3.2 g/dL (3.5-5.0); Calcium 8.4 mg/dL (8.4-10.2); Potassium 5.7 mmol/L (3.5-5.1); Total Bilirubin 0.5 mg/dL (0.2-1.3); Total Protein 6.1 g/dL (6.3-8.2)
[2020-04-22 09:30] VITALS: RESP 17
[2020-04-22] MEDS: hydrALAZINE HCL 25 MG TAB PO SCH ×2 (09:35→15:48)
[2020-04-22] MEDS: SODIUM FERRIC GLUCONAT-SUCROSE 125 MG in SODIUM CHLORIDE 0.9% 100 ML IVPB SCH (09:35)
[2020-04-22] MEDS: FERROUS SULFATE 325 MG TAB PO SCH (09:36)
[2020-04-22] MEDS: DILTIAZEM CD 180 MG CAP.ER.24H PO SCH (09:36)
[2020-04-22] MEDS: FLECAINIDE 50 MG TAB PO SCH ×2 (09:37→11:48)
[2020-04-22] MEDS: MULTIVITAMINS, THERA 1 EACH TAB PO SCH (09:38)
[2020-04-22] MEDS: FAMOTIDINE 20 MG TAB PO SCH (09:38)
[2020-04-22] MEDS: ATORVASTATIN 40 MG TAB PO SCH (09:38)
[2020-04-22] MEDS: METOPROLOL TARTRATE 50 MG TAB PO SCH (09:38)
--- NOTE | 2020-04-22 09:55 | P.DS ---
Providers Date of admission: 04/19/20 01:13 Attending physician: Payal Chavez Consults: 04/19/20 01:13 Consult Physician Routine Consulting Provider: Mitzi Castanon Consult Reason/Comments: arf Do you want consulting provider notified?: Yes 04/19/20 10:00 Consult Physician Routine Consulting Provider: Robbie Melendez Consult Reason/Comments: a.fib Do you want consulting provider notified?: Yes Primary care physician: Miguel Harrington [facility] Course: This is a 60-year-old male, patient of Dr. Harrington, with a past medical history of atrial fibrillation, congestive heart failure, GERD, hyperlipidemia, hypertension, previous myocardial infarction, rheumatoid arthritis, and obstructive sleep apnea. Patient was recently seen by Dr. Myers for persistent atrial fibrillation status post A. fib ablation on 04/05/2020, did well after the procedure and was sent home. Patient reports he was at home when he was experiencing frequent falls, generalized weakness, confusion, and in no urine output for the last 7-10 days. Patient then presented to the emergency department, CT brain showed cerebral atrophy, no intracranial abnormality. Chest x-ray showed cardiomegaly, with no active cardiopulmonary disease. Labs were obtained and showed BUN 133, creatinine 8.37, recent kidney function from 04/05/20 showed creatinine of 2.23, BUN is 63. He was found to be in acute renal failure. He was started on a bicarb drip, nephrology was consulted, will likely need urgent dialysis. Straight cath was performed and 600 mL's of urine was obtained. Will have Guzman catheter placed for strict I&O's. Will obtain ultrasound of the kidney bladder to check for obstructive uropathy, may need consult with urology. Currently acute renal failure of unknown etiology. Hemoglobin was also low on the lower side at 9.4, repeat hemoglobin this morning noted to drop to 7.8, 1 unit packed red blood cells was ordered. Patient's Xarelto is on hold, will obtain occult blood for possible GI bleed. Cardiology consulted for recent A. fib with ablation. Vital signs are currenlty stable, he is afebrile 98.5, 97% on 2 L, blood pressure 131/59. 7/1: Patient evaluated this morning, states he is feeling better. No dialysis yesterday and is currently on hold, creatinine did improve from 8.37 to 4.03 today, BUN 100, Potassium is also down 5.3, Na 137. Hemoglobin up to 8.5 after 1 unit packed red blood cells yesterday, Xarelto is currently still on hold. Nephrology is on consult believes acute kidney injury is secondary hypotension and hypoperfusion, apparently he was also taking NSAIDs at home. Medications were adjusted, hydralazine decreased to 25 mg 3 times a day, valsartan discontinued.. He continues on bicarb drip for his metabolic acidosis. Cardiology is on consult for his recent ablation for his atrial fibrillation. Abdominal ultrasound technically limited study, showed left renal pelvis may represent parapelvic cysts, otherwise unremarkable. Good urine output noted from a Guzman catheter. Vital signs are stable, afebrile 98.1, heart rate 64, blood pressure 123/60, 86% on 2 L nasal cannula. 04/21: Patients kidney function continues to improve. Creatinine is 2.41. BUN 76. Potassium 5.4, one time dose of Furosemide 40mg IVP ordered, IV fluids were discontinued. Patient has good urine output, guzman catheter still in place, blood noted in urine bag, patient reports he accidentally pulled on the guzman cath. Will monitor at this point, will discontinue guzman caether tomorrow morning. Blood pressure well controlled 132/66, no further episodes of hypotension. Xarelto still on hold, Hgb is slowly improving Hgb 8.8, Hct 28.4, status post 1 unit of PRBC. Will plan on discharge tomorrow. 04/22: Patient evaluated, reports he is feeling well today. Kidney function has improved significantly since admission, creatinine 1.68, BUN 59. Anemia has also improved hemoglobin 9.3, hematocrit 29.6. He will restart his Xarelto, monitor closely for any signs of bleeding and recheck his CBC on a weekly basis. Guzman catheter will be discontinued, will need bladder scans to check for urinary retention. He will remain on Flomax daily. Vital signs are stable blood pressure well controlled 118/68, heart rate 78, respiratory rate 17, 95% on room air, afebrile 98.3. Blood pressure medications were decreased to avoid any episodes of hypotension. He'll be discharged to subacute rehab once cleared by insurance. Discharge diagnoses 1. Acute renal failure with acute tubular necrosis, secondary to hypotension and hypoperfusion. 2. Acute blood loss anemia secondary to GI bleed. Hemoccult ordered, Xarelto on hold, 1 unit packed red blood cells ordered. 3. A. fib with RVR status post recent ablation. 4. Hypertension. 5. Hyperlipidemia. 6. GERD. 7. Obstructive sleep apnea. 8. Bariatric surgery status post lap band removal, gastric sleeve. 9. Hyperkalemia. Secondary to acute renal failure and MARI. 10. Anion gap metabolic acidosis secondary to renal failure. Continue bicarbonate drip. The above impression and plan of care have been discussed and directed by signing physician. Johanny Carpenter nurse practitioner acting as scribe for signing physician. Patient Condition at Discharge: Good Plan - Discharge Summary Discharge Rx Participant: No New Discharge Prescriptions: New hydrALAZINE HCL [Apresoline] 25 mg PO TID tab Tamsulosin [Flomax] 0.4 mg PO PC-SUPPER cap.er.24h Famotidine [Pepcid] 20 mg PO DAILY tab Continue Metoprolol Tartrate [Lopressor] 50 mg PO BID Nitroglycerin Sl Tabs [Nitrostat] 0.4 mg SUBLINGUAL Q5M PRN PRN Reason: Chest Pain Multivitamins, Thera [Multivitamin (formulary)] 1 tab PO DAILY Citalopram Hydrobromide [CeleXA] 40 mg PO DAILY Rivaroxaban [Xarelto] 20 mg PO HS Rosuvastatin [Crestor] 20 mg PO DAILY Albuterol Inhaler [Ventolin Hfa Inhaler] 2 puff INHALATION RT-Q4H PRN PRN Reason: Shortness Of Breath Ferrous Sulfate [Iron (65 MG Elemental)] 325 mg PO DAILY Diltiazem HCl [Diltiazem HCl 24Hr ER] 180 mg PO DAILY Flecainide Acetate [Tambocor] 150 mg PO BID Flecainide Acetate 100 mg PO DAILY@1200 Furosemide [Lasix] 20 mg PO BID Discontinued Ranitidine HCl 150 mg PO BID Furosemide [Lasix] 80 mg PO DAILY hydrALAZINE HCL [Apresoline] 100 mg PO TID Valsartan [Diovan] 320 mg PO DAILY Spironolactone [Aldactone] 50 mg PO DAILY Discharge Medication List Metoprolol Tartrate [Lopressor] 50 mg PO BID 01/22/15 [History] Multivitamins, Thera [Multivitamin (formulary)] 1 tab PO DAILY 01/22/15 [History] Nitroglycerin Sl Tabs [Nitrostat] 0.4 mg SUBLINGUAL Q5M PRN 01/22/15 [History] Citalopram Hydrobromide [CeleXA] 40 mg PO DAILY 07/03/17 [History] Rivaroxaban [Xarelto] 20 mg PO HS 05/04/19 [History] Albuterol Inhaler [Ventolin Hfa Inhaler] 2 puff INHALATION RT-Q4H PRN 04/19/20 [History] Diltiazem HCl [Diltiazem HCl 24Hr ER] 180 mg PO DAILY 04/19/20 [History] Ferrous Sulfate [Iron (65 MG Elemental)] 325 mg PO DAILY 04/19/20 [History] Flecainide Acetate 100 mg PO DAILY@1200 04/19/20 [History] Flecainide Acetate [Tambocor] 150 mg PO BID 04/19/20 [History] Furosemide [Lasix] 20 mg PO BID 04/19/20 [History] Rosuvastatin [Crestor] 20 mg PO DAILY 04/19/20 [History] Famotidine [Pepcid] 20 mg PO DAILY tab 04/22/20 [Rx] Tamsulosin [Flomax] 0.4 mg PO PC-SUPPER cap.er.24h 04/22/20 [Rx] hydrALAZINE HCL [Apresoline] 25 mg PO TID tab 04/22/20 [Rx] Follow up Appointment(s)/Referral(s): Mitzi Castanon MD [STAFF PHYSICIAN] - 1 Week Miguel Harrington MD [Primary Care Provider] - 1-2 days [facility] Visiting Nurse, [NON-STAFF] - Discharge Disposition: TRANSFER TO SNF/ECF
--- NOTE | 2020-04-22 10:33 | P.PN ---
Subjective Progress Note Date: 04/22/20 Principal diagnosis: 60-year-old obese male with acute kidney injury from outlet obstruction from prostatism. His creatinine has improved from 8.37 down to 1.68. after having a Gilmore catheter placed. This was taken out this morning just an hour ago. Patient has good appetite no fever chills cough shortness of breath nausea vomiting dizziness cramps. He is able to walk but has generalized weakness and the plan is to discharge him to a rehab unit. He is known with prostatism in the past. Also known with recent atrial fibrillation with cardiac ablation on 04/05/2020 Hyperkalemia secondary to combination of acute kidney injury and PERFECTO inhibitor's. Objective - Vital Signs Vital signs: Vital Signs Temp 98.3 F 04/22/20 08:00 Pulse 78 04/22/20 08:00 Resp 17 04/22/20 08:00 BP 111/68 04/22/20 08:00 Pulse Ox 95 04/22/20 08:00 Intake & Output 04/21/20 04/22/20 04/22/20 18:59 06:59 18:59 Intake Total 952 580 240 Output Total 2200 1575 Balance -1248 -995 240 Weight 178.1 kg Intake: Oral 952 580 240 Output: Urine 2200 1575 Uretheral (Gilmore) 875 Other: Voiding Method Indwelling Catheter Indwelling Catheter # Bowel Movements 1 On examination is awake alert oriented comfortable HEENT exam no JVP neck is supple no facial asymmetry Lungs clear to auscultation good air entry bilaterally Heart sounds are unremarkable for any murmur rub gallop Abdomen soft nontender obese difficult to examine Extreme exam was no edema Neurologically awake alert oriented - Labs CBC & Chem 7: 04/22/20 06:04 04/22/20 06:04 Labs: Abnormal Lab Results - Last 24 Hours (Table) 04/22/20 04/22/20 Range/Units 06:04 06:04 WBC 13.1 H (3.8-10.6) k/uL RBC 3.32 L (4.30-5.90) m/uL Hgb 9.3 L (13.0-17.5) gm/dL Hct 29.6 L (39.0-53.0) % Potassium 5.7 H (3.5-5.1) mmol/L BUN 59 H (9-20) mg/dL Creatinine 1.68 H (0.66-1.25) mg/dL Glucose 109 H (74-99) mg/dL Total Protein 6.1 L (6.3-8.2) g/dL Albumin 3.2 L (3.5-5.0) g/dL Assessment and Plan Assessment: Impression 1 acute kidney injury secondary to outlet obstruction relieved with Gilmore catheter creatinine came down from 8-1.68 this morning 2. Hyperkalemia secondary to combination of acute kidney injury, obstructive nephropathy and Perfecto inhibitors improved potassium is 5.7 this morning bicarb is 30 3. Possible CK D stage III with a baseline creatinine of 1.46, and GFR would be at the time 52 mL as of 01/08/2020. Year ago on 05/04/2019 his creatinine was 1 4. Anemia hemoglobin is 9.3 and saturations 5%, on IV iron. Recommendation 1. Patient is cleared to be discharged. 2. His potassium needs to be followed up as well as his renal function. 3. For right now hold any Perfecto inhibitors or ARB because of the hyperkalemia, 4. Will follow-up renal function and hemoglobin
--- NOTE | 2020-04-22 12:30 | P.PN ---
Subjective Progress Note Date: 04/22/20 This is a 60-year-old gentleman who recently had an ablation done for atypical fibrillation, was admitted to the hospital with acute renal failure and hyperkalemia. Patient was found to have obstructive uropathy which was relieved with Gilmore catheter. His hyperkalemia is felt to be secondary to MARI inhibitor in acute renal failure. His creatinine has improved to 1.68. Patient is feeling much better. Patient is being discharged to rehab unit. Patient has been maintaining sinus rhythm. No complaints of any chest pain Objective - Vital Signs Vital signs: Vital Signs Temp 98.4 F 04/22/20 11:47 Pulse 72 04/22/20 11:47 Resp 17 04/22/20 08:00 BP 103/64 04/22/20 11:47 Pulse Ox 97 04/22/20 11:47 Intake & Output 04/21/20 04/22/20 04/22/20 18:59 06:59 18:59 Intake Total 952 580 240 Output Total 2200 1575 600 Balance -1248 -995 -360 Weight 178.1 kg Intake: Oral 952 580 240 Output: Urine 2200 1575 600 Uretheral (Gilmore) 875 Other: Voiding Method Indwelling Catheter Indwelling Catheter Urinal # Bowel Movements 1 - Exam GENERAL EXAM: Patient is alert and oriented and doesn't appear to be in any acute distress HEENT: Normocephalic. Normal reaction of pupils, equal size, normal range of extraocular motion. No erythema or exudates in the throat. NECK: No masses, no nuchal rigidity. CHEST: No chest wall deformity. LUNGS: Equal air entry with no crackles or wheeze. HEART: S1 and S2 normal with no audible mumurs or gallops. Regular rhythm, femorals equal on both sides.. ABDOMEN: No hepatosplenomegaly, normal bowel sounds, no guarding or rigidity. SKIN: No rashes CENTRAL NERVOUS SYSTEM: No focal deficits. EXTREMITIES: No cyanosis, clubbing or edema. - Labs CBC & Chem 7: 04/22/20 06:04 04/22/20 06:04 Labs: Abnormal Lab Results - Last 24 Hours (Table) 04/22/20 04/22/20 Range/Units 06:04 06:04 WBC 13.1 H (3.8-10.6) k/uL RBC 3.32 L (4.30-5.90) m/uL Hgb 9.3 L (13.0-17.5) gm/dL Hct 29.6 L (39.0-53.0) % Potassium 5.7 H (3.5-5.1) mmol/L BUN 59 H (9-20) mg/dL Creatinine 1.68 H (0.66-1.25) mg/dL Glucose 109 H (74-99) mg/dL Total Protein 6.1 L (6.3-8.2) g/dL Albumin 3.2 L (3.5-5.0) g/dL Assessment and Plan (1) History of atrial fibrillation Current Visit: Yes Status: Acute Code(s): Z86.79 - PERSONAL HISTORY OF OTHER DISEASES OF THE CIRCULATORY SYSTEM SNOMED Code(s): 422563040 (2) Acute renal failure Current Visit: Yes Status: Acute Code(s): N17.9 - ACUTE KIDNEY FAILURE, UNSPECIFIED SNOMED Code(s): 39769565 (3) Anemia Current Visit: Yes Status: Acute Code(s): D64.9 - ANEMIA, UNSPECIFIED SNOMED Code(s): 002470952 Plan: Patient is feeling much better. Her renal failure has improved.. To be discharged home. Follow-up with Dr. Feliciano as an outpatient
[2020-04-22 15:39] VITALS: BP 110/64; PULSE 67; TEMP 98.6
[2020-04-22] MEDS ORDERED: FAMOTIDINE 20 MG TAB PO SCH (21:00)
== END 2020-04-22 17:20 | DRG 683 ==
LOC: EC 22:40 → 3SCARD 04-19 01:13
PROVIDERS: ADMIT Family Medicine; ATTEND Family Medicine
PROC: 30233N1 Transfusion of Nonautologous Red Blood Cells into Peripheral Vein, Percutaneous Approach (ICD-10-PCS; principal; 2020-04-19)
DX: N17.0 Acute kidney failure with tubular necrosis (principal); I48.19 Other persistent atrial fibrillation; N13.8 Other obstructive and reflux uropathy; Z68.43 Body mass index [BMI] 50.0-59.9, adult; D62 Acute posthemorrhagic anemia; E87.2 Acidosis; K92.2 Gastrointestinal hemorrhage, unspecified; I11.0 Hypertensive heart disease with heart failure; I50.9 Heart failure, unspecified; I95.9 Hypotension, unspecified; N13.30 Unspecified hydronephrosis; E66.01 Morbid (severe) obesity due to excess calories; M06.9 Rheumatoid arthritis, unspecified; Z11.59 Encounter for screening for other viral diseases; E86.0 Dehydration; E86.1 Hypovolemia; E87.5 Hyperkalemia; K21.9 Gastro-esophageal reflux disease without esophagitis; N40.1 Benign prostatic hyperplasia with lower urinary tract symptoms; E78.5 Hyperlipidemia, unspecified; F32.9 Major depressive disorder, single episode, unspecified; R00.1 Bradycardia, unspecified; T46.4X5A Adverse effect of angiotensin-converting-enzyme inhibitors, initial encounter; T39.395A Adverse effect of other nonsteroidal anti-inflammatory drugs [NSAID], initial encounter; G47.33 Obstructive sleep apnea (adult) (pediatric); I25.2 Old myocardial infarction; R29.6 Repeated falls; Z79.01 Long term (current) use of anticoagulants; Z79.899 Other long term (current) drug therapy; Z86.14 Personal history of Methicillin resistant Staphylococcus aureus infection; Z91.81 History of falling; Z98.84 Bariatric surgery status; Z96.653 Presence of artificial knee joint, bilateral; Z71.3 Dietary counseling and surveillance; Z91.040 Latex allergy status; Z91.018 Allergy to other foods; Z91.048 Other nonmedicinal substance allergy status; Z80.3 Family history of malignant neoplasm of breast; Z80.1 Family history of malignant neoplasm of trachea, bronchus and lung; Z80.6 Family history of leukemia; Z82.49 Family history of ischemic heart disease and other diseases of the circulatory system
CPT/HCPCS: 36415; 36430; 51702; 70450; 71046; 76770; 80048; 80053; 81001; 83540; 83550; 83735; 84100; 84484; 85025; 85027; 85610; 85730; 86850; 86900; 86901; 86920; 93005; 96361; 96374; 96375; 99291

== ENCOUNTER → 2020-07-08 | Outpatient (CLI) | payer BC, MEDICARE ==
[2020-07-09 01:06] LABS: Anion Gap 7.9 mmol/L (4.00-12.00); BUN/Creat Ratio 12.22 Ratio (12.00-20.00); Calcium 8.4 mg/dL (8.7-10.3); Carbon Dioxide 31.1 mmol/L (21.6-31.8); Magnesium 1.9 mg/dL (1.5-2.4); Non-African American GFR(CKD) 93.2 (60.0-200.0); Potassium 4.3 mmol/L (3.5-5.5)
== END | disposition home or self-care (01) ==
LOC: LABWHC1 15:17
PROVIDERS: ATTEND Nurse Practitioner Adult Health
DX: I10 Essential (primary) hypertension (principal)
CPT/HCPCS: 36415; 80048; 83735

== ENCOUNTER 2021-10-18 11:59 | Emergency (ER) | payer BC, MEDICARE ==
[2021-10-18 12:35] VITALS: RESP 18; TEMP 98.4
--- NOTE | 2021-10-18 13:22 | ED ---
General Adult HPI - General Chief complaint: Recheck/Abnormal Lab/Rx Stated complaint: covid+, wants bam Time Seen by Provider: 10/18/21 13:03 Source: patient Mode of arrival: wheelchair Limitations: no limitations - History of Present Illness Initial comments: Dictation was produced using [employer] dictation software. please excuse any grammatical, word or spelling errors. Chief Complaint: Patient is a 61-year-old male presents emergency Department requesting monoclonal antibody infusion History of Present Illness: Patient is a 61-year-old male. He has multiple comorbidities. Patient is obese with a BMI of 58.6. Patient states he tested positive coronary virus this morning. He was asymptomatic since yesterday. Patient states that he was exposed to his family member at [employer] who recently tested positive. He was told from that individual that he was positive and urged her own to get tested. states that he did receive the vaccine. His symptoms are cough some mild shortness of breath. He is here in emergency department requesting monoclonal antibody infusion. He was told by his family member who works in the hospital that we are offering this infusion. The ROS documented in this emergency department record has been reviewed and confirmed by me. Those systems with pertinent positive or negative responses have been documented in the HPI. All other systems are other negative and/or noncontributory. PHYSICAL EXAM: General Impression: Alert and oriented x3, not in acute distress HEENT: Normocephalic atraumatic, extra-ocular movements intact, pupils equal and reactive to light bilaterally, mucous membranes moist. Cardiovascular: Heart regular rate and rhythm Chest: Able to complete full sentences, no retractions, no tachypnea Abdomen: abdomen soft, non-tender, non-distended, no organomegaly Musculoskeletal: Pulses present and equal in all extremities, no peripheral edema Motor: no focal deficits noted Neurological: CN II-XII grossly intact, no focal motor or sensory deficits noted Skin: Intact with no visualized rashes Psych: Normal affect and mood ED course: 61-year-old male presents to the emergency department requesting monoclonal antibody infusion. He's been symptomatically for 48 hours and tested positive today. Vital signs upon arrival are within acceptable limits. Is not hypoxic. His BMI is 50.6 and his multiple comorbidities. Patient meets criteria for monoclonal antibody infusion. Patient given monoclonal antibody infusion and observe the emergency department. Patient stable medical condition after infusion. Patient be discharged. - Related Data Home Medications Medication Instructions Recorded Confirmed Metoprolol Tartrate [Lopressor] 50 mg PO BID 01/22/15 04/19/20 Multivitamins, Thera [Multivitamin 1 tab PO DAILY 01/22/15 04/19/20 (formulary)] Nitroglycerin Sl Tabs [Nitrostat] 0.4 mg SUBLINGUAL Q5M PRN 01/22/15 04/19/20 Citalopram Hydrobromide [CeleXA] 40 mg PO DAILY 07/03/17 04/19/20 Rivaroxaban [Xarelto] 20 mg PO HS 05/04/19 04/19/20 Albuterol Inhaler [Ventolin Hfa 2 puff INHALATION RT-Q4H PRN 04/19/20 04/19/20 Inhaler] Diltiazem HCl [Diltiazem HCl 24Hr 180 mg PO DAILY 04/19/20 04/19/20 ER] Ferrous Sulfate [Iron (65 MG 325 mg PO DAILY 04/19/20 04/19/20 Elemental)] Flecainide Acetate 100 mg PO DAILY@1200 04/19/20 04/19/20 Flecainide Acetate [Tambocor] 150 mg PO BID 04/19/20 04/19/20 Furosemide [Lasix] 20 mg PO BID 04/19/20 04/19/20 Rosuvastatin [Crestor] 20 mg PO DAILY 04/19/20 04/19/20 Previous Rx's Medication Instructions Recorded Famotidine [Pepcid] 20 mg PO DAILY tab 04/22/20 Tamsulosin [Flomax] 0.4 mg PO PC-SUPPER cap.er.24h 04/22/20 hydrALAZINE HCL [Apresoline] 25 mg PO TID tab 04/22/20 Allergies Allergy/AdvReac Type Severity Reaction Status Date / Time coconut Allergy Rash/Hives Verified 10/18/21 12:32 latex Allergy Rash/Hives Verified 10/18/21 12:32 STERI STRIPS Allergy RASH,SKIN Uncoded 10/18/21 12:32 INFECTION Review of Systems ROS Statement: Those systems with pertinent positive or pertinent negative responses have been documented in the HPI. ROS Other: All systems not noted in ROS Statement are negative. Past Medical History Past Medical History: Atrial Fibrillation, Heart Failure, GERD/Reflux, Hyperlipidemia, Hypertension, Myocardial Infarction ([place]), Rheumatoid Arthritis ([place]), Sleep Apnea/CPAP/BIPAP Additional Past Medical History / Comment(s): See Dr Myers's H&P,uses C PAP MACHINE,freq falls-uses cane,dimitri cellulitis Last Myocardial Infarction Date:: 07-04-2012 History of Any Multi-Drug Resistant Organisms: MRSA Date of last positivie culture/infection: 04-05-15 MDRO Source:: left knee Past Surgical History: Bariatric Surgery, Heart Catheterization, Joint Replac ement Additional Past Surgical History / Comment(s): Lap band,lapband removed,gastric sleeve, neck x 2, left ankle, left elbow. TOTAL BILATERAL KNEES, ablation 03/2020 Past Anesthesia/Blood Transfusion Reactions: No Reported Reaction Additional Past Anesthesia/Blood Transfusion Reaction / Comment(s): no hx blood transfusion Past Psychological History: Depression Smoking Status: Never smoker Past Alcohol Use History: None Reported Past Drug Use History: None Reported - Past Family History Sister(s) Family Medical History: Cancer Additional Family Medical History / Comment(s): sister #1: breast cancer. sister #2: bronchial tube cancer ( in her 50's from this cancer) Father Family Medical History: Cancer, Congestive Heart Failure (CHF), Coronary Artery Disease (CAD), Hypertension Additional Family Medical History / Comment(s): Leukemia, at age 62 Mother Additional Family Medical History / Comment(s): at age 60 from anuerysm on the brain stem General Exam Limitations: no limitations Course Vital Signs 10/18/21 10/18/21 10/18/21 12:32 13:35 13:51 Temperature 98.4 F Pulse Rate 76 77 Respiratory 18 18 18 Rate Blood Pressure 168/98 177/87 O2 Sat by Pulse 95 95 Oximetry Disposition Clinical Impression: COVID Disposition: HOME SELF-CARE Condition: Good Instructions (If sedation given, give patient instructions): Coronavirus Disease 2019 (COVID-19) Is patient prescribed a controlled substance at d/c from ED?: No Referrals: Miguel Harrington MD [Primary Care Provider] - 1-2 days
[2021-10-18] MEDS ORDERED: SODIUM CHLORIDE 0.9% 50 ML IVPB ONE (14:00)
[2021-10-18] MEDS ORDERED: BAMLANIVIMAB (EUA) 700 MG, ETESEVIMAB (EUA) 1,400 MG in SODIUM CHLORIDE 0.9% 100 ML IVPB ONE (14:15)
[2021-10-18 15:48] VITALS: BP 131/78; PULSE 79
== END 2021-10-18 15:48 | disposition home or self-care (01) ==
LOC: EC 11:59
DX: U07.1 COVID-19 (principal); I10 Essential (primary) hypertension; I25.2 Old myocardial infarction; Z79.891 Long term (current) use of opiate analgesic; Z79.899 Other long term (current) drug therapy; Z79.01 Long term (current) use of anticoagulants; Z91.018 Allergy to other foods; Z91.040 Latex allergy status; Z68.43 Body mass index [BMI] 50.0-59.9, adult
CPT/HCPCS: 99283; J3490

== ENCOUNTER 2023-10-22 12:52 | Day surgery (SDC) | payer BC, MEDICARE ==
[~2023-10-22 12:52] MED LIST changes: -LACTATED RINGERS 1,000 ML IV SCH
[2023-10-22] MEDS ORDERED: SODIUM CHLORIDE 0.9% 500 ML 500 ML IV ONE (13:19)
[2023-10-22 13:36] VITALS: TEMP 98
[2023-10-22 14:01] LABS: ALT 28 U/L (4-49); AST 46 U/L (17-59); African American GFR (CKD) >90 (>60 ml/min/1.73 sqM); Albumin 4.1 g/dL (3.5-5.0); Alkaline Phosphatase 128 U/L (38-126); Anion Gap 9 mmol/L; Blood Urea Nitrogen 12 mg/dL (9-20); Carbon Dioxide 27 mmol/L (22-30); Chloride 104 mmol/L (98-107); Glucose 109 mg/dL (74-99); Non-African American GFR(CKD) >90 (>60 ml/min/1.73 sqM); Potassium 4.2 mmol/L (3.5-5.1); Sodium 140 mmol/L (137-145); Total Bilirubin 0.6 mg/dL (0.2-1.3)
[2023-10-22] MEDS ORDERED: METOPROLOL TARTRATE 50 MG TAB PO STA (15:26)
[2023-10-22] MEDS ORDERED: PROPOFOL 10 MG/ML 20 ML VIAL IV ONE (15:26)
[2023-10-22] MEDS ORDERED: LIDOCAINE 1% INJ 10MG/ML (20 ML MDV) ONE (15:26)
[2023-10-22] MEDS ORDERED: NIFEdipine XL 90 MG TAB.ER.24 PO STA (15:26)
--- NOTE | 2023-10-22 15:27 | P.EPPROC ---
- EP Procedure Note Electrophysiology Procedure Note: Diagnosis Persistent atrial fibrillation failed radical treatment and ablation in the past Started on flecainide 100 mg twice daily Dose of Celexa reduced to 20 mg by mouth daily Details Successful electrical cardioversion with a 200 J biphasic shock in the AP configuration to sinus rhythm Postprocedure EKG shows sinus rhythm 97 beats a minute normal QT and normal QRS width on flecainide and Celexa Plan Continue flecainide 100 mg twice daily Consider decreasing Celexa to 10 mg by mouth daily if possible Increase metoprolol tartrate 150 mg twice daily Start Procardia XL 90 mg by mouth daily Hold hydralazine
[2023-10-22 15:37] VITALS: RESP 16
[2023-10-22 17:07] VITALS: BP 148/83; PULSE 59
== END 2023-10-22 17:25 | disposition home or self-care (01) ==
LOC: CATHEP 12:52
PROVIDERS: ATTEND Internal Medicine Clinical Cardiac Electrophysiology
DX: I48.19 Other persistent atrial fibrillation (principal); I10 Essential (primary) hypertension; E78.5 Hyperlipidemia, unspecified; Z91.048 Other nonmedicinal substance allergy status; Z79.01 Long term (current) use of anticoagulants; Z79.899 Other long term (current) drug therapy
CPT/HCPCS: 92960; 80053; 84443; J2001; J2704

== ENCOUNTER 2024-01-13 05:42 | Day surgery (SDC) | payer MEDICARE ==
[2024-01-13] MEDS: SODIUM CHLORIDE 0.9% 1,000 ML IV SCH (06:24)
[2024-01-13 06:37] LABS: Basophils # (A) 0.1 k/uL (0-0.2); Basophils % (A) 1 %; Eosinophils # (A) 0.2 k/uL (0-0.7); Eosinophils % (A) 2 %; HCT 40.9 % (39.0-53.0); HGB 12.7 gm/dL (13.0-17.5); Lymphocytes # (A) 1.3 k/uL (1.0-4.8); Lymphocytes % (A) 19 %; MCH 27.1 pg (25.0-35.0); MCV 87.4 fL (80.0-100.0); Mean Platelet Volume 7.3; Monocytes # (A) 0.4 k/uL (0-1.0); Monocytes % (A) 5 %; Neutrophils # (A) 5.2 k/uL (1.3-7.7); Neutrophils % (A) 72 %; Platelet Count 223 k/uL (150-450); RBC 4.68 m/uL (4.30-5.90); RDW 15.3 % (11.5-15.5); WBC 7.3 k/uL (3.8-10.6)
[2024-01-13 06:50] LABS: African American GFR (CKD) >90 (>60 ml/min/1.73 sqM); Anion Gap 5 mmol/L; Blood Urea Nitrogen 18 mg/dL (9-20); Calcium 8.8 mg/dL (8.4-10.2); Carbon Dioxide 28 mmol/L (22-30); Chloride 106 mmol/L (98-107); Glucose 117 mg/dL (74-99); Non-African American GFR(CKD) >90 (>60 ml/min/1.73 sqM); Potassium 4.3 mmol/L (3.5-5.1); Sodium 139 mmol/L (137-145)
[2024-01-13] MEDS ORDERED: MIDAZOLAM 2 MG/2 ML VIAL IV PRN (07:00)
[2024-01-13] MEDS ORDERED: HYDROmorphone 0.5 MG/0.5 ML SYRINGE IVP PRN (07:00)
[2024-01-13] MEDS ORDERED: SUCCINYLCHOLINE CHLORIDE 200 MG/10 ML VIAL IV ONE (07:23)
[2024-01-13] MEDS ORDERED: MIDAZOLAM 2 MG/2 ML VIAL ONE (07:23)
[2024-01-13] MEDS ORDERED: PHENYLEPHRINE-0.9% NACL SYG 1,000 MCG/10 ML SYRINGE ONE (07:23)
[2024-01-13] MEDS ORDERED: PROPOFOL 10 MG/ML 20 ML VIAL IV ONE (07:23)
[2024-01-13] MEDS ORDERED: WATER FOR INJECTION, STERILE 10 ML VIAL IV ONE (07:23)
[2024-01-13] MEDS ORDERED: LIDOCAINE 1% INJ 10MG/ML (20 ML MDV) ONE ×2 (07:23→07:53)
[2024-01-13] MEDS ORDERED: ETOMIDATE 2 MG/ML 10 ML VIAL ONE (07:23)
[2024-01-13] MEDS ORDERED: ePHEDrine 50 MG/ML 1 ML VIAL ONE (07:23)
[2024-01-13] MEDS ORDERED: fentaNYL (PF) 50 MCG/ML 2 ML AMP ONE (07:23)
[2024-01-13] MEDS ORDERED: HEPARIN SODIUM,PORCINE 10,000 UNIT/ML 1 ML VIAL ONE (07:23)
[2024-01-13] MEDS: HEPARIN SOD,PORK IN 0.45% NACL 25,000 UNIT in 0.45% NACL 1 250ML.BAG IV ONE (07:40)
--- NOTE | 2024-01-13 07:45 | P.HPCAR ---
History of Present Illness This is Dr. Myers dictating an H/P on this patient The patient was interviewed and examined IMPRESSION / ASSESSMENT: Persistent atrial fibrillation has failed pulm vein isolation, left atrial septal ablation and linear ablation in the ridge between the pulmonary veins and the left atrial appendage Morbid obesity Hypertension PLAN: -Heparin dose was calculated based on body weight and discussed with anesthesia Proceed with A-fib ablation with reassessment of pulmonary veins and ablation of the left atrial roof and posterior wall Continue Xarelto transfer to [facility] Patient continues to complain of shortness of breath and palpitations. His blood pressure today is elevated but in the office his blood pressure was controlled Complains of weeping legs on the left side lesions No obvious infection ROS: No fever chills or rigors, no cough, phlegm or expectoration, no nausea, vomiting or diarrhea, no hematuria, dysuria, no musculoskeletal complaints, no strokes or seizures, no skin lesions. EXAMINATION: Afebrile blood pressure 177 202 pulse rate in the 80s Heart sounds are irregular no murmurs Breath sounds are reduced bilaterally No JVD Troponin changes in the lower extremities REVIEW OF LABS, ECG & MEDICAL DATA White count normal 7.3 thousand, hemoglobin 12.7 mildly reduced Normal electrolytes normal renal function Normal platelet count at 223,000 Xarelto 20 mg nightly Metoprolol tartrate 150 mg twice daily Nifedipine XL 90 mg daily Physical Exam Vitals: Vital Signs Temp Pulse Resp BP Pulse Ox 01/13/24 06:30 97.4 F L 88 18 177/102 98 Intake and Output 01/12/24 01/13/24 01/13/24 22:59 06:59 14:59 Intake Total 125 Balance 125 Intake: IV 125 Other: Weight 187.3 kg Past Medical History Past Medical History: Atrial Fibrillation, Heart Failure, GERD/Reflux, Hyperlipidemia, Hypertension, Myocardial Infarction ([place]), Rheumatoid Arthritis (RA), Sleep Apnea/CPAP/BIPAP Additional Past Medical History / Comment(s): See Dr Myers's H&P,uses C PAP MACHINE,[email or web address] falls-uses cane, dimitri. lower leg cellulitis since 1998 - draining currently Last Myocardial Infarction Date:: 07-04-2012 History of Any Multi-Drug Resistant Organisms: MRSA Date of last positivie culture/infection: 04-05-15 MDRO Source:: left knee Past Surgical History: Bariatric Surgery, Heart Catheterization, Joint Replacement Additional Past Surgical History / Comment(s): Lap band, lapband removed,gastric sleeve, neck x 2, left ankle, left elbow. Bilat. TKA, cardiac ablation 03/2020 Past Anesthesia/Blood Transfusion Reactions: No Reported Reaction Additional Past Anesthesia/Blood Transfusion Reaction / Comment(s): no hx blood transfusion Smoking Status: Never smoker - Past Family History Sister(s) Family Medical History: Cancer Additional Family Medical History / Comment(s): sister #1: breast cancer. sister #2: bronchial tube cancer ( in her 50's from this cancer) Father Family Medical History: Cancer, Congestive Heart Failure (CHF), Coronary Artery Disease (CAD), Hypertension Additional Family Medical History / Comment(s): Leukemia, at age 62 Mother Additional Family Medical History / Comment(s): at age 60 from anuerysm on the brain stem Physical Examination Vital Signs Temp Pulse Resp BP Pulse Ox 01/13/24 06:30 97.4 F L 88 18 177/102 98 Intake and Output 01/12/24 01/13/24 01/13/24 22:59 06:59 14:59 Intake Total 125 Balance 125 Intake: IV 125 Other: Weight 187.3 kg Results 01/13/24 06:24 01/13/24 06:24 CBC 01/13/24 Range/Units 06:24 WBC 7.3 (3.8-10.6) k/uL RBC 4.68 (4.30-5.90) m/uL Hgb 12.7 L (13.0-17.5) gm/dL Hct 40.9 (39.0-53.0) % Plt Count 223 (150-450) k/uL Comprehensive Metabolic Panel 01/13/24 Range/Units 06:24 Sodium 139 (137-145) mmol/L Potassium 4.3 (3.5-5.1) mmol/L Chloride 106 (98-107) mmol/L Carbon Dioxide 28 (22-30) mmol/L BUN 18 (9-20) mg/dL Creatinine 0.77 (0.66-1.25) mg/dL Glucose 117 H (74-99) mg/dL Calcium 8.8 (8.4-10.2) mg/dL Current Medications Generic Name Dose Route Start Last Admin Trade Name Freq PRN Reason Stop Dose Admin Hydromorphone HCl 0.5 mg 01/13/24 07:00 Hydromorphone 0.5 Mg/0.5 Ml Syringe IVP 01/13/24 23:00 Q5M PRN Phase 1 or 2 - Pain Control Sodium Chloride 1,000 mls @ 20 mls/hr 01/13/24 06:03 01/13/24 06:24 Saline 0.9% IV 02/12/24 06:04 125 mls .Q24H ANTONELLA Administration Lactated Ringer's 1,000 mls @ 20 mls/hr 01/13/24 06:03 Lactated Ringers IV 02/12/24 06:04 .Q24H ANTONELLA Midazolam HCl 2 mg 01/13/24 07:00 Midazolam 2 Mg/2 Ml Vial IV 01/13/24 23:00 ONCE PRN Pre-Op Anxiety Intake and Output 01/12/24 01/13/24 01/13/24 22:59 06:59 14:59 Intake Total 125 Balance 125 Intake: IV 125 Other: Weight 187.3 kg 01/13/24 06:24 01/13/24 06:24
[2024-01-13] MEDS: LIDOCAINE 1% INJ 10MG/ML (20 ML MDV) SQ ONE (08:04)
[2024-01-13] MEDS: IOPAMIDOL-370 100ML BTL INJ ONE (10:01)
[2024-01-13] MEDS ORDERED: ACETAMINOPHEN TAB 325 MG TAB PO PRN (10:29)
--- NOTE | 2024-01-13 10:37 | P.EPPROC ---
- EP Procedure Note Electrophysiology Procedure Note: PROCEDURE A. fib ablation with antral-level PVI and left atrial roofline DIAGNOSIS Persistent atrial fibrillation, symptomatic, refractory to therapy RESULT No left atrial appendage mass seen on intracardiac echo, preserved LV systolic function, left atrial enlargement Successful A. fib ablation/pulmonary vein isolation of all veins using cryo- ablation at the antral level Complete entrance block in all 4 veins confirmed including the antrum Left atrial roof ablation, long left atrial roof No evidence for phrenic nerve injury Esophageal deflection YES, right-sided esophagus Electrical cardioversion with a synchronized shock across the chest YES PROCEDURE DETAILS Written informed consent prior to procedure. Patient brought to the EP lab. General anesthesia given. Heparin administered. A city maintained above 300 seconds Both groins prepped and draped per protocol and venous sheaths placed. Esophagus intubated, circa catheter for temperature monitoring an endoscope for possible esophageal deflection. Phrenic nerve monitoring performed. Esophageal temperature monitoring performed. Esophageal deflection performed if circa catheter overlapping with the balloon or circa temperature less than 27.5C Intracardiac echocardiography performed. Pericardium evaluated. Left atrial appendage evaluated. Left atrium evaluated along with pulmonary veins Transseptal catheterization performed under fluoroscopic guidance and intracardiac echo guidance Cryoablation sheath exchanged, balloon catheter along with achieve catheter placed in the left atrium. Pulmonary veins isolated in the following sequence: Left superior pulmonary vein followed by left inferior pulmonary vein, followed by right inferior pulmonary vein and lastly right superior pulmonary vein. Phrenic nerve stimulation along with capture thresholds within the SVC and right superior pulmonary vein to identify the phrenic nerve proximity to the cryo- balloon. Pulmonary veins isolated and confirmed with entrance and exit block. Phrenic nerve integrity confirmed at the end of the procedure Ablation of the left atrial roof performed with sequential lesions from the left superior to the right superior pulmonary veins. Ablation of the electrograms confirmed Electrical cardioversion performed for persistence of atrial fibrillation despite successful ablation. Diagnostic catheters for the high right atrium, His bundle, coronary sinus placed. LA and RA pressures recorded RA pressure: 07/09/15 LA pressure: 14/09/17 Diagnostic EP study with coronary sinus pacing and recording Baseline measurements: In sinus rhythm sinus cycle length 950 ms, DC interval 172, QRS 112 ms Rate related aberrancy, left bundle branch block type noted occasionally through the procedure QT interval 403 Venous sheaths were removed and hemostasis assured with a closure device. Patient extubated and transferred to recovery PROCEDURES PERFORMED Diagnostic EP study CS pacing and recording Left and right transseptal catheterization Catheter the mapping of the tachycardia Intracardiac echocardiography Pulmonary vein isolation with transseptal and comprehensive EPS, [id number] Left atrial roof line, [id number] Electrical cardioversion with a synchronized shock across the chest [id number]
[2024-01-13] MEDS: ACETAMINOPHEN IV (For NPO) 1,000 MG/100 ML VIAL IVPB ONE (11:20)
[2024-01-13] MEDS: ACETAMINOPHEN IV (For NPO) 1,000 MG in EMPTY BAG 1 BAG IVPB ONE (13:30)
[2024-01-13] MEDS: LACTATED RINGERS 1,000 ML IV SCH (14:25)
[2024-01-13] MEDS: FUROSEMIDE 80 MG TAB PO SCH (15:25)
[2024-01-13] MEDS: RIVAROXABAN 20 MG TAB PO SCH (21:26)
[2024-01-13] MEDS: METOPROLOL TARTRATE 50 MG TAB PO SCH (21:26)
[2024-01-14] MEDS: FAMOTIDINE 20 MG TAB PO SCH (05:53)
[2024-01-14] MEDS: NIFEdipine XL 90 MG TAB.ER.24 PO SCH (06:12)
[2024-01-14] MEDS: FUROSEMIDE 80 MG TAB PO SCH (06:12)
[2024-01-14] MEDS: TAMSULOSIN 0.4 MG CAP.ER.24H PO SCH (06:12)
[2024-01-14] MEDS: CITALOPRAM HYDROBROMIDE 20 MG TAB PO SCH (06:12)
[2024-01-14 08:45] VITALS: BP 164/90; PULSE 89; RESP 14; TEMP 97.8
--- NOTE | 2024-01-14 14:48 | P.DS ---
Providers Attending physician: Jamin Myers Primary care physician: Miguel Nazario [facility] Course: Patient is doing well post A-fib ablation He has persistent atrial fibrillation that is failed medical treatment. He had a prior ablation in the year 2019 He is asymptomatic no chest pain no sore throat no breathing trouble no cough expectoration His groins of healed well no hematoma no swelling On examination his blood pressure 152/71 mmHg. He did not receive his metoprolol this morning Afebrile Heart sounds S1-S2 normal Breath sounds are clear no rhonchi no crackles No hematoma in the groins Impression Persistent A-fib with RVR Hypertension Morbid obesity Suggest Continue anticoagulation uninterrupted, lifelong Blood pressure controlled with Procardia XL and metoprolol Discharge home today Incentive spirometry prescribed Follow-up with Dr. Christopher in 1 week Plan - Discharge Summary Discharge Rx Participant: Yes New Discharge Prescriptions: Continue RX: Nitroglycerin Sl Tabs [Nitrostat] 0.4 mg SUBLINGUAL Q5M PRN PRN Reason: Chest Pain RX: Multivitamins, Thera [Multivitamin (formulary)] 1 tab PO DAILY RX: Rivaroxaban [Xarelto] 20 mg PO HS RX: Albuterol Inhaler [Ventolin Hfa Inhaler] 2 puff INHALATION RT-Q4H PRN PRN Reason: Shortness Of Breath RX: Ferrous Sulfate [Iron (65 MG Elemental)] 325 mg PO DAILY RX: Furosemide [Lasix] 80 mg PO BID RX: Famotidine [Pepcid] 20 mg PO DAILY tab RX: Metoprolol Tartrate [Lopressor] 150 mg PO BID #90 tablet RX: NIFEdipine XL [Procardia XL] 90 mg PO DAILY #90 tab RX: Citalopram Hydrobromide [Citalopram HBr] 20 mg PO DAILY RX: Cholecalciferol [Vitamin D3 (25 Mcg = 1000 Iu)] 25 mcg PO DAILY RX: Tamsulosin [Flomax] 0.4 mg PO DAILY Discharge Medication List RX: Multivitamins, Thera [Multivitamin (formulary)] 1 tab PO DAILY 01/22/15 [History] RX: Nitroglycerin Sl Tabs [Nitrostat] 0.4 mg SUBLINGUAL Q5M PRN 01/22/15 [History] RX: Rivaroxaban [Xarelto] 20 mg PO HS 07/15/19 [History] RX: Albuterol Inhaler [Ventolin Hfa Inhaler] 2 puff INHALATION RT-Q4H PRN 04/19/20 [History] RX: Ferrous Sulfate [Iron (65 MG Elemental)] 325 mg PO DAILY 04/19/20 [History] RX: Furosemide [Lasix] 80 mg PO BID 04/19/20 [History] RX: Famotidine [Pepcid] 20 mg PO DAILY tab 04/22/20 [Rx] RX: Metoprolol Tartrate [Lopressor] 150 mg PO BID #90 tablet 10/22/23 [Rx] RX: NIFEdipine XL [Procardia XL] 90 mg PO DAILY #90 tab 10/22/23 [Rx] RX: Cholecalciferol [Vitamin D3 (25 Mcg = 1000 Iu)] 25 mcg PO DAILY 01/10/24 [History] RX: Citalopram Hydrobromide [Citalopram HBr] 20 mg PO DAILY 01/10/24 [History] RX: Tamsulosin [Flomax] 0.4 mg PO DAILY 01/10/24 [History] Follow up Appointment(s)/Referral(s): Jung Christopher MD [STAFF PHYSICIAN] - 01/31/24 9:45 am Patient Instructions/Handouts: A-fib (Atrial Fibrillation) (GEN), Cardiac Ablation (GEN), Electrophysiology Study (GEN) Activity/Diet/Wound Care/Special Instructions: Post EP study - Ablation instructions 1. Keep access sites dry for 2 days. 2. No heavy lifting or straining for 2 days. 3. Avoid bending the hips repeatedly for 2 days. 4. You may go up and down stairs slowly Call if the following is noted 1. Bleeding, increasing swelling or pain at the access sites. 2. Increasing chest discomfort, especially upon taking a deep breath. 3. Increasing shortness of breath, at rest or with exertion. 4. Undue cough / phlegm 5. Difficulty or pain while swallowing. 6. Pain or change in color in the extremities. 7. Fever, chills, rigors. 8. Increasing headache or neurologic symptoms. 9. Dizziness, fainting, palpitations Discharge Disposition: HOME SELF-CARE
== END 2024-01-14 12:33 | disposition home or self-care (01) ==
LOC: CATHEP 05:42 → 6NMEDSUR 10:12 → CATHEP 01-14 12:33
PROVIDERS: ATTEND Internal Medicine Clinical Cardiac Electrophysiology
DX: I48.19 Other persistent atrial fibrillation (principal); I11.0 Hypertensive heart disease with heart failure; I50.9 Heart failure, unspecified; K21.9 Gastro-esophageal reflux disease without esophagitis; E78.2 Mixed hyperlipidemia; E66.01 Morbid (severe) obesity due to excess calories; I25.10 Atherosclerotic heart disease of native coronary artery without angina pectoris; G47.33 Obstructive sleep apnea (adult) (pediatric); M06.9 Rheumatoid arthritis, unspecified; Z95.5 Presence of coronary angioplasty implant and graft; Z98.890 Other specified postprocedural states; Z80.3 Family history of malignant neoplasm of breast; Z79.01 Long term (current) use of anticoagulants; Z82.49 Family history of ischemic heart disease and other diseases of the circulatory system
CPT/HCPCS: 93656; 93657; 86900; 86901; 80048; 85025; 86850; J2001; J0131; Q9967; J1644

== ENCOUNTER → 2024-08-28 | Outpatient (CLI) | payer MEDICARE ==
--- NOTE | 2024-08-28 15:29 | XR ---
EXAMINATION TYPE: XR cervical spine limited DATE OF EXAM: 08/28/2024 COMPARISON: 03/01/2011 CLINICAL INDICATION: Male, 64 years old with history of M62.838 OTHER MUSCLE SPASM; TECHNIQUE: Four views are submitted. FINDINGS: The odontoid is intact. There are no compression deformities. The prevertebral soft tissue structur es are within normal limits. Postsurgical change partially included in the field of view of the lowe r lumbar spine extending from level C5-C7. Limited assessment due to soft tissue overlap. Grossly int act. Grade 1 anterolisthesis C2-C3 and C3-C4 similar to prior exam. Hypertrophic spurring at C3 and C 4 with degenerative disc disease. Mild facet arthropathy. IMPRESSION: 1. Right one anterolisthesis C2-C3, C3-C4 and C4-C5. 2. Multilevel hypertrophic and degenerative change with facet arthropathy. 3. Postsurgical changes lower cervical spine. [facility], , 08/28/2024 3:27 PM
== END | disposition home or self-care (01) ==
LOC: RADXRMAIN 14:59
PROVIDERS: ATTEND Family Medicine
DX: M43.12 Spondylolisthesis, cervical region (principal); M47.812 Spondylosis without myelopathy or radiculopathy, cervical region; M62.838 Other muscle spasm
CPT/HCPCS: 72040

== ENCOUNTER 2025-04-13 19:07 | Outpatient (CLI) | payer MEDICARE ==
--- NOTE | 2025-04-20 17:08 | P.PCN ---
Date of Procedure: 04/13/25 Operative Findings: Polysomnography report History This is a 65-year-old male patient with known history of obstructive sleep apnea that was diagnosed back in 2014. The patient was utilizing a VPAP machine, S9 series, in the setting of 17/12 cm of water and the patient is also using a Mirage fx nasal mask. The patient has been compliant to treatment for years and the patient is currently off treatment as his BiPAP machine is broken. The patient has become actively symptomatic regarding his obstructive sleep apnea and is snoring loud and he has sleep fragmentation and chronic hypersomnia and sleepiness. His comorbidities include morbid obesity and the patient has undergone gastric sleeve procedure with adequate weight loss. His current body mass index is 49. He has chronic A-fib, and he has failed previous cardiac ablation. He has nonischemic cardiomyopathy and most recent echocardiogram showed improvement in the LV function and the patient has moderate mitral regurgitation. The patient was given a PSG to be followed by CPAP titration. Pertinent physical findings The patient has a body mass index of 49 and his weight is 361 pounds Technical description The patient was studied using a standard complex polysomnography protocol that included recording of the Lead II EKG, Central, occipital and frontal EEG, right and left outer canthus EOG, submental EMG, right and left anterior tibialis EMG, respiratory airflow by thermocouple and or pressure/flow transducer, respiratory efforts by abdominal and thoracic PVDF belts, oxygen saturation by cable oximetry. Position by observation synchronized the PSG. Equipment used: [employer]. Sleep architecture The total recording duration was 411 minutes and a total sleep time was 313.5 minutes. The wake after sleep onset time was 77.5 minutes. The overall sleep efficiency was 76.3%. The latency to sleep onset was 20 minutes. The sleep architecture was characterized by 20.7% REM sleep, 0.6% stage I sleep, 78.6% stage II sleep and 0% stage III sleep. The total arousal index was 10.3 Respiratory analysis The patient had a total of 76 obstructive events of which 46 with obstructive apneas, 0 were mixed apneas and 31 obstructive hypopneas. The resulting AHI was 13. The patient had worsening in his sleep apnea during REM sleep with an AHI during REM being at 23. On a separate note, the patient had no central events. Oxygenation analysis This patient spent approximately 70 minutes of the sleep time below pulse ox of 89% accounting for 4% of the overall recording duration. His lowest oxygen saturation was 60% and the baseline pulse ox while awake was 90%. The desaturations occurred predominantly during REM sleep. Arousal events A total of 54 arousals were counted with an index of 10.3 and the respiratory arousal index was 1.7 Periodic movements The patient had a total of 583 periodic limb movement activity with an index of 111. No arousals related to periodic movement activity. Cardiac events The average heart rate was 85 with a minimum heart rate of 72 and a maximum heart rate of 98. He has atrial fibrillation. Assessment Obstructive sleep apnea with an AHI of 13, worse during REM sleep. The patient also encountered nocturnal oxygen saturation during REM. Minimum pulse ox recorded was 60%. Chronic hypersomnia and sleepiness related to obstructive sleep apnea Abnormal sleep architecture with exaggeration and over representation of stage II sleep with absent delta wave Diminished sleep efficiency of 76% Chronic atrial fibrillation Morbid obesity with a BMI of 49, post gastric sleeve Hyperlipidemia Chronic systolic heart failure with an ejection fraction of 25%, improved. This is nonischemic cardiomyopathy and the patient has normal coronaries Plan proceed with CPAP/BiPAP titration.
== END 2025-04-14 06:00 | disposition home or self-care (01) ==
LOC: 3 N SLEEP 19:07
PROVIDERS: ATTEND Internal Medicine Critical Care Medicine
DX: G47.33 Obstructive sleep apnea (adult) (pediatric) (principal); I48.20 Chronic atrial fibrillation, unspecified; E66.01 Morbid (severe) obesity due to excess calories; E78.5 Hyperlipidemia, unspecified; I50.22 Chronic systolic (congestive) heart failure; I42.8 Other cardiomyopathies; Z68.42 Body mass index [BMI] 45.0-49.9, adult; Z91.018 Allergy to other foods; Z91.040 Latex allergy status; Z91.048 Other nonmedicinal substance allergy status
CPT/HCPCS: 95810

== ENCOUNTER 2025-05-02 19:24 | Outpatient (CLI) | payer MEDICARE ==
--- NOTE | 2025-05-06 23:40 | P.PCN ---
Date of Procedure: 05/02/25 Operative Findings: CPAP titration report History This is a 65-year-old male patient with known history of obstructive sleep apnea that was diagnosed back in 2014. The patient was utilizing a VPAP machine, S9 series, in the setting of 17/12 cm of water and the patient is also using a Mirage fx nasal mask. The patient has been compliant to treatment for years and the patient is currently off treatment as his BiPAP machine is broken. The patient has become actively symptomatic regarding his obstructive sleep apnea and is snoring loud and he has sleep fragmentation and chronic hypersomnia and sleepiness. His comorbidities include morbid obesity and the patient has undergone gastric sleeve procedure with adequate weight loss. His current body mass index is 49. He has chronic A-fib, and he has failed previous cardiac ablation. He has nonischemic cardiomyopathy and most recent echocardiogram showed improvement in the LV function and the patient has moderate mitral regurgitation. The patient underwent a polysomnography on 04/13/2025 and the patient was found to have obstructive sleep apnea, AHI of 13, worse during REM sleep with an AHI of 23 during REM. The patient is presenting to undergo a CPAP titration. Pertinent physical findings The patient has a body mass index of 49 and his weight is 361 pounds Technical description The patient was studied using a standard complex polysomnography protocol that included recording of the Lead II EKG, Central, occipital and frontal EEG, right and left outer canthus EOG, submental EMG, right and left anterior tibialis EMG, respiratory airflow by thermocouple and or pressure/flow transducer, respiratory efforts by abdominal and thoracic PVDF belts, oxygen saturation by cable oximetry. Position by observation synchronized the PSG. Equipment used: [employer]. Stepwise CPAP titration was done to eliminate all obstructive respiratory events Sleep characteristics The total recording duration was 415.5 minutes. The total sleep time was 277 minutes. The overall sleep efficiency was 66.7%. Latency to sleep onset was 37.5 minutes. Latency to REM sleep was 90.5 minutes. The sleep architecture was characterized by 1.4% stage I, 74.2% stage II, 1.4% stage III and a total of 22.9% REM sleep. The wake after sleep onset time was 101 minute. The total arousal index was 10.6. CPAP titration The patient was started on CPAP therapy, initially at the pressure of 7 cm of water pressure was gradually increased to reach a maximum pressure of 16 cm of water. I carefully reviewed CPAP titration taking, the patient sleep stage and body position. At a pressure of 30 cm of water, the patient had no major obstructive respiratory events and there was adequate control of the patient's obstructive respiratory events. In addition, the patient's oxygen saturation was able to maintain above 90%. This was successful titration. All sleep stages were encountered. The patient was studied in supine and nonsupine body position. Limb movement The patient had no significant periodic limb movement activity Arousal events Patient had a total of 49 arousals with an index of 10.6. The respiratory arousal index was 0 Cardiac summary Average heart rate was 86 with a minimum heart rate of 74 and a maximum heart rate of 97. The rhythm was atrial fibrillation. Assessment Obstructive sleep apnea with an AHI of 13, worse during REM sleep. The patient also encountered nocturnal oxygen saturation during REM. Minimum pulse ox recorded was 60%. The patient underwent a successful CPAP titration. Chronic hypersomnia and sleepiness related to obstructive sleep apnea Abnormal sleep architecture with exaggeration and over representation of stage II sleep with absent delta wave Diminished sleep efficiency of 66.7 % Chronic atrial fibrillation Morbid obesity with a BMI of 49, post gastric sleeve Hyperlipidemia Chronic systolic heart failure with an ejection fraction of 25%, improved. This is nonischemic cardiomyopathy and the patient has normal coronaries Plan Initiate CPAP therapy. The patient will be offered an APAP machine pressures of 7/15 cm of water. The patient will be given a medium size Simplus fullface mask. The patient will see him back in the office in 30 to 90 days to assess clinical response and compliancy. Will continue to follow.
== END 2025-05-03 05:30 | disposition home or self-care (01) ==
LOC: 3 N SLEEP 19:24
PROVIDERS: ATTEND Internal Medicine Critical Care Medicine
DX: G47.33 Obstructive sleep apnea (adult) (pediatric) (principal); I48.20 Chronic atrial fibrillation, unspecified; E78.5 Hyperlipidemia, unspecified; I50.22 Chronic systolic (congestive) heart failure; I42.8 Other cardiomyopathies; E66.01 Morbid (severe) obesity due to excess calories; Z68.42 Body mass index [BMI] 45.0-49.9, adult; Z99.89 Dependence on other enabling machines and devices; Z91.018 Allergy to other foods; Z91.040 Latex allergy status; Z91.048 Other nonmedicinal substance allergy status
CPT/HCPCS: 95811